=== PATIENT | female | born 1965 | race Caucasian/White ===

== ENCOUNTER 2017-09-22 10:35 | Inpatient (IN) ==
[2017-09-22] MEDS ORDERED: Isovue-370 500 ML INFUS..BTL IV ONE (10:44)
--- NOTE | 2017-09-22 10:51 | Emergency Department Note ---
Disposition Clinical Impression: Cellulitis of right upper extremity Disposition: Still a Patient Condition: Fair Referrals: Betito Staley MD [Primary Care Provider] - Forms: ED Satisfaction Letter Time of Disposition: 11:14 Extremity Problem HPI - General Chief complaint: ED Extremity Problem,Nontraumatic Stated complaint: R elbow recheck Time Seen by Provider: 09/22/17 10:41 Source: patient Mode of arrival: ambulatory Limitations: no limitations Nursing Notes Reviewed: Yes Vital Signs Reviewed: Yes - History of Present Illness HPI Narrative: Nontoxic-appearing 51-year-old female since for evaluation of a right elbow abscess/cellulitis. She was seen at this facility on 09/17 and given a prescription for clindamycin. She has since followed up with her primary care provider who extended the prescription for clindamycin. She states that yesterday evening, the wound spontaneously opened and has been draining a purulent discharge. She states the area is extremely more tender than it was on its initial presentation. She denies any associated fever or chills. She denies any nausea, vomiting, or other signs of a systemic infection. Pt Subjective Complaint: joint swelling, joint paint Onset (ago): day(s) Consistency: constant Injury Location: right, elbow Pain Scale: 6 Quality: aching Radiation: none Improves with: nothing Worsens with: range of motion, palpation Associated symptoms: Reports: swelling, redness. Denies: fever - Related Data Home Medications Medication Instructions Recorded Confirmed Clopidogrel [Plavix] 75 mg PO DAILY 11/15/14 10/24/15 Dicyclomine 20 mg PO TID 11/15/14 10/24/15 Estradiol 2 mg PO DAILY 11/15/14 10/24/15 Insulin LISPRO [Humalog] 0 unit SQ PRN PRN 11/15/14 10/24/15 Levothyroxine [Synthroid] 100 mcg PO QAM 11/15/14 10/24/15 Meloxicam [Mobic] 15 mg PO DAILY 11/15/14 10/24/15 Simvastatin [Zocor] 40 mg PO HS 11/15/14 10/24/15 Topiramate [Topamax] 25 mg PO BID 11/15/14 10/24/15 Zolpidem [Ambien] 10 mg PO HS 11/15/14 10/24/15 Amlodipine Besylate 2.5 mg PO DAILY 10/24/15 10/24/15 Cetirizine HCl [Zyrtec] 10 mg PO DAILY 10/24/15 10/24/15 Hydromorphone HCl [Dilaudid] 2 mg PO DAILY 10/24/15 10/24/15 L. Acidophilus/Pectin, [place] 1 cap PO BID 10/24/15 10/24/15 [Acidophilus Probiotic Capsule] SUMAtriptan Succinate [Imitrex] 100 mg PO PRN PRN 10/24/15 10/24/15 Previous Rx's Medication Instructions Recorded Hydrocodone/Acetaminophen [[place] 1 - 2 tab PO Q4-6H PRN #15 tab 01/01/15 5-325 Tablet] Ondansetron HCl [Zofran] 4 mg PO Q6HR PRN #12 tablet 01/01/15 Polyethylene Glycol 3350 [MiraLAX] 17 gm PO DAILY #10 powd.pack 01/24/16 Cephalexin [Keflex] 500 mg PO QID #28 capsule 09/13/16 GuaiFENesin/Codeine [ROBITUSSIN 5 ml PO Q4-6H PRN #120 ml 03/29/17 w/CODEINE] Ondansetron [Zofran] 8 mg PO Q8HR #15 tablet 03/29/17 Oseltamivir Phosphate 75 mg PO BID #10 capsule 03/29/17 Cephalexin [Keflex] 500 mg PO Q6H #28 capsule 07/06/17 Doxycycline 100 mg PO BID #20 capsule 07/06/17 Clindamycin HCl 450 mg PO TID 7 Days capsule 09/17/17 Allergies Allergy/AdvReac Type Severity Reaction Status Date / Time acetaminophen [From Percocet] Allergy Itching Verified 11/11/14 01:47 gabapentin [From Neurontin] Allergy Rash Verified 11/15/14 11:30 morphine Allergy Hives Verified 11/11/14 01:47 Oxycodone [From Percocet] Allergy Itching Verified 11/11/14 01:47 Penicillins Allergy Abdominal Verified 11/11/14 01:47 Pain Sulfa (Sulfonamide Allergy See Verified 11/11/14 01:47 Antibiotics) Comments All systems ED: reviewed and negative except as stated. Constitutional: Denies: fever, chills, weakness, weight change Eyes: Denies: eye pain, eye discharge, vision change ENT ED: Denies: ear pain, throat pain, dental pain, hearing loss, epistaxis, congestion, dysphagia Cardiovascular: Denies: chest pain, palpitations, dyspnea on exertion, edema, syncope Respiratory: Denies: cough, dyspnea, wheezes, hemoptysis, stridor Gastrointestinal: Denies: abdominal pain, nausea, vomiting, diarrhea, constipation, hematemesis, melena, hematochezia Genitourinary: Denies: dysuria, frequency, hematuria, discharge Musculoskeletal: Reports: as per HPI, joint swelling, arthralgia. Denies: back pain, neck pain, myalgia Integumentary: Denies: rash, abrasion, lesions Neurological: Denies: headache, weakness, numbness, paresthesias, confusion, abnormal gait, vertigo Psychiatric: Denies: anxiety, depression, suicidal thoughts, homicidal thoughts , auditory hallucinations, visual hallucinations Endocrine: Denies: fatigue Hematological/Lymphatic: Denies: easy bleeding, easy bruising Allergic/Immunologic: Denies: facial swelling, urticaria Past Medical History - Past Medical History Attestation: Yes The following information was validated with the patient. Source: patient, nursing notes reviewed Medical history: Reports: DVT, diabetes, hyperlipidemia, hypertension, thyroid disease Surgical history: Reports: cholecystectomy, hysterectomy, other, LE stent (s) Psychiatric history: Reports: no psych history - Social History Smoking Status: Former smoker Smokeless Tobacco Status: No Alcohol use: Reports: none Drug use: Reports: none Physical Exam - General Limitations: no limitations General appearance: alert, in no apparent distress - Head Head exam: atraumatic, normocephalic, normal inspection - Eye Eye exam: Present: normal appearance, PERRL, EOMI. Absent: nystagmus - ENT ENT exam: mucous membranes moist - Neck Neck exam: Present: normal inspection, full ROM, trachea midline - Chest Chest inspection: Present: normal inspection, symmetric chest wall rise - Expanded Upper Extremity Exam Elbow exam: Present: full ROM, tenderness, swelling, erythema, other (Moderate soft tissue swelling noted over the area of the right olecranon process. The area is erythematous. There is an area of induration with palpable fluctuance that is draining a purulent discharge.) Forearm/Wrist exam: Present: normal inspection, full ROM Hand exam: Present: normal inspection, full ROM Neuromotor exam: Normal: wrist extension, thumb opposition, fingers 2-5 abduction Neurosensory exam: Normal: radial nerve, ulnar nerve, 2-point discrimination Hand tendon exam: Normal: flexor digitorum profundus (location), extensor tendon (location) Vascular exam: Normal: capillary refill, radial pulse, ulnar pulse - Neurological Exam Neurological exam: Present: alert, oriented X3 - Psychiatric Psychiatric exam: Present: normal affect, normal mood - Skin Skin exam: Present: warm, dry, intact Course Vital Signs Temperature 98.1 F 09/22/17 10:37 Pulse Rate 89 09/22/17 10:37 Respiratory Rate 18 09/22/17 10:37 Blood Pressure 114/78 09/22/17 10:37 O2 Sat by Pulse Oximetry 100 09/22/17 10:37 Temperature 98.1 F 09/22/17 11:02 Pulse Rate 89 09/22/17 11:02 Respiratory Rate 18 09/22/17 11:02 Blood Pressure 114/78 09/22/17 11:02 O2 Sat by Pulse Oximetry 100 09/22/17 11:02 Oxygen Delivery Oxygen Delivery Room Air Extremity Problem, Nontraumati - Medical Records Medical records reviewed: Yes I reviewed the patient's medical records. Billy - Billy Situation: Demographics, MOA Background: Presenting Complaint, Relevant PMH, Meds, & Allergies Assessment: Vital Signs, Course and respsone to treatment, Exam Concerns, Patient/Family Expectation, Pertinant Lab Results, Outstanding Labs Recommendation: Barrier(s) to disposition, Recommendation based on pending studies, treatments, or consults Billy Report Given to: Dr. Dav Cervantes Repor Time: 11:14
[2017-09-22 11:15] LABS: Basophils % 0.2 %; Eosinophils # 0.4 K/mcL (0.0-0.6); Eosinophils % 4.8 %; Hematocrit 42.7 % (35.3-44.9); Hemoglobin 14.4 g/dL (11.5-15.4); Immature Granulocytes % 0.2 % (0-4); Lymphocytes # 1.8 K/mcL (0.6-4.6); Lymphocytes % 22.1 %; Mean Corpuscular HGB Conc 33.7 g/dL (31.6-35.5); Mean Corpuscular Hemoglobin 31.6 pg (28.0-33.3); Mean Corpuscular Volume 93.8 fL (83.0-100.0); Mean Platelet Volume 9.4 fL (9.4-12.4); Monocytes # 0.4 K/mcL (0.0-1.3); Monocytes % 5.4 %; Neutrophils # 5.5 K/mcL (1.6-8.9); Platelet Count 262 K/mcL (140-400); Red Blood Count 4.55 M/mcL (3.82-4.97); Red Cell Distribution Width 13.3 % (11.5-14.5); Segmented Neutrophils % 67.3 %
[2017-09-22 11:25] LABS: BUN/Creatinine Ratio 20 (6-26); Blood Urea Nitrogen 17 mg/dL (6-20); Calcium 8.7 mg/dL (8.6-10.3); Carbon Dioxide 25 mEq/L (23-29); Chloride 106 mEq/L (98-107); Glucose 198 mg/dL (70-105); Osmolality,Calculated 289 (280-300); Potassium 4.4 mEq/L (3.5-5.1); Sodium 136 mEq/L (136-145); eGFR For African Americans > 60 (> 60); eGFR For Non-African Americans > 60 (> 60)
[2017-09-22 12:37] LABS: C-Reactive Protein 7 mg/L (Less than 10)
--- NOTE | 2017-09-22 14:51 | Emergency Department Note ---
Disposition Clinical Impression: Cellulitis of right upper extremity Cellulitis Qualifiers: Site of cellulitis: extremity Site of cellulitis of extremity: upper extremity Laterality: right Qualified Code(s): L03.113 - Cellulitis of right upper limb Disposition: Admitted As Inpatient Condition: Fair Referrals: Betito Staley MD [Primary Care Provider] - Forms: ED Satisfaction Letter Time of Disposition: 15:02 General Adult HPI - General Chief complaint: ED Extremity Problem,Nontraumatic Stated complaint: R elbow recheck Time Seen by Provider: 09/22/17 10:41 Source: patient Mode of arrival: ambulatory Limitations: no limitations - History of Present Illness Pain Scale: 6 - Related Data Home Medications Medication Instructions Recorded Confirmed Clopidogrel [Plavix] 75 mg PO DAILY 11/15/14 10/24/15 Dicyclomine 20 mg PO TID 11/15/14 10/24/15 Estradiol 2 mg PO DAILY 11/15/14 10/24/15 Insulin LISPRO [Humalog] 0 unit SQ PRN PRN 11/15/14 10/24/15 Levothyroxine [Synthroid] 100 mcg PO QAM 11/15/14 10/24/15 Meloxicam [Mobic] 15 mg PO DAILY 11/15/14 10/24/15 Simvastatin [Zocor] 40 mg PO HS 11/15/14 10/24/15 Topiramate [Topamax] 25 mg PO BID 11/15/14 10/24/15 Zolpidem [Ambien] 10 mg PO HS 11/15/14 10/24/15 Amlodipine Besylate 2.5 mg PO DAILY 10/24/15 10/24/15 Cetirizine HCl [Zyrtec] 10 mg PO DAILY 10/24/15 10/24/15 Hydromorphone HCl [Dilaudid] 2 mg PO DAILY 10/24/15 10/24/15 L. Acidophilus/Pectin, [place] 1 cap PO BID 10/24/15 10/24/15 [Acidophilus Probiotic Capsule] SUMAtriptan Succinate [Imitrex] 100 mg PO PRN PRN 10/24/15 10/24/15 Previous Rx's Medication Instructions Recorded Hydrocodone/Acetaminophen [[place] 1 - 2 tab PO Q4-6H PRN #15 tab 01/01/15 5-325 Tablet] Ondansetron HCl [Zofran] 4 mg PO Q6HR PRN #12 tablet 01/01/15 Polyethylene Glycol 3350 [MiraLAX] 17 gm PO DAILY #10 powd.pack 01/24/16 Cephalexin [Keflex] 500 mg PO QID #28 capsule 09/13/16 GuaiFENesin/Codeine [ROBITUSSIN 5 ml PO Q4-6H PRN #120 ml 03/29/17 w/CODEINE] Ondansetron [Zofran] 8 mg PO Q8HR #15 tablet 03/29/17 Oseltamivir Phosphate 75 mg PO BID #10 capsule 03/29/17 Cephalexin [Keflex] 500 mg PO Q6H #28 capsule 07/06/17 Doxycycline 100 mg PO BID #20 capsule 07/06/17 Clindamycin HCl 450 mg PO TID 7 Days capsule 09/17/17 Allergies Allergy/AdvReac Type Severity Reaction Status Date / Time acetaminophen [From Percocet] Allergy Itching Verified 11/11/14 01:47 gabapentin [From Neurontin] Allergy Rash Verified 11/15/14 11:30 morphine Allergy Hives Verified 11/11/14 01:47 Oxycodone [From Percocet] Allergy Itching Verified 11/11/14 01:47 Penicillins Allergy Abdominal Verified 11/11/14 01:47 Pain Sulfa (Sulfonamide Allergy See Verified 11/11/14 01:47 Antibiotics) Comments Constitutional: Denies: fever, chills, weakness, weight change Eyes: Denies: eye pain, eye discharge, vision change ENT ED: Denies: ear pain, throat pain, dental pain, hearing loss, epistaxis, congestion, dysphagia Cardiovascular: Denies: chest pain, palpitations, dyspnea on exertion, edema, syncope Respiratory: Denies: cough, dyspnea, wheezes, hemoptysis, stridor Gastrointestinal: Denies: abdominal pain, nausea, vomiting, diarrhea, constipation, hematemesis, melena, hematochezia Genitourinary: Denies: dysuria, frequency, hematuria, discharge Musculoskeletal: Reports: as per HPI, joint swelling, arthralgia. Denies: back pain, neck pain, myalgia Integumentary: Denies: rash, abrasion, lesions Neurological: Denies: headache, weakness, numbness, paresthesias, confusion, abnormal gait, vertigo Psychiatric: Denies: anxiety, depression, suicidal thoughts, homicidal thoughts , auditory hallucinations, visual hallucinations Endocrine: Denies: fatigue Hematological/Lymphatic: Denies: easy bleeding, easy bruising Allergic/Immunologic: Denies: facial swelling, urticaria Past Medical History - Past Medical History Medical history: Reports: DVT, diabetes, hyperlipidemia, hypertension, thyroid disease Surgical history: Reports: cholecystectomy, hysterectomy, other, LE stent (s) Psychiatric history: Reports: no psych history - Social History Smoking Status: Former smoker Smokeless Tobacco Status: No Alcohol use: Reports: none Drug use: Reports: none Physical Exam - General Limitations: no limitations General appearance: alert, in no apparent distress Course - Reevaluation(s) Reevaluation #1: 51-year-old with infected olecranon bursa. CT did show abscess were going to open that up culturette place her on vancomycin and admit Time: 15:01 - Consultations Consultation #1: Discussed with Dr. Alejandre, admit Time: 15:01 Vital Signs Temperature 98.1 F 09/22/17 10:37 Pulse Rate 89 09/22/17 10:37 Respiratory Rate 18 09/22/17 10:37 Blood Pressure 114/78 09/22/17 10:37 O2 Sat by Pulse Oximetry 100 09/22/17 10:37 Temperature 98.1 F 09/22/17 11:02 Pulse Rate 89 09/22/17 11:02 Respiratory Rate 18 09/22/17 11:02 Blood Pressure 114/78 09/22/17 11:02 O2 Sat by Pulse Oximetry 100 09/22/17 11:02 Oxygen Delivery Oxygen Delivery Room Air Medical Decision Making - Lab Data Lab results reviewed: Yes I reviewed the patient's lab results. Result diagrams: 09/22/17 10:53 09/22/17 10:53 Lab Results 09/22/17 09/22/17 09/22/17 Range/Units 10:53 10:53 10:53 WBC 8.2 (4.3-11.1) K/mcL RBC 4.55 (3.82-4.97) M/mcL Hgb 14.4 (11.5-15.4) g/dL Hct 42.7 (35.3-44.9) % MCV 93.8 (83.0-100.0) fL MCH 31.6 (28.0-33.3) pg MCHC 33.7 (31.6-35.5) g/dL RDW 13.3 (11.5-14.5) % Plt Count 262 (140-400) K/mcL MPV 9.4 (9.4-12.4) fL Immature Gran % 0.2 (0-4) % Seg Neutrophils % 67.3 % Lymphocytes % 22.1 % Monocytes % 5.4 % Eosinophils % 4.8 % Basophils % 0.2 % Neutrophils # 5.5 (1.6-8.9) K/mcL Lymphocytes # 1.8 (0.6-4.6) K/mcL Monocytes # 0.4 (0.0-1.3) K/mcL Eosinophils # 0.4 (0.0-0.6) K/mcL Basophils # 0.0 (0.0-0.2) K/mcL ESR 21 H (0-15) mm/hr Sodium 136 (136-145) mEq/L Potassium 4.4 (3.5-5.1) mEq/L Chloride 106 (98-107) mEq/L Carbon Dioxide 25 (23-29) mEq/L BUN 17 (6-20) mg/dL Creatinine 0.83 (0.60-1.20) mg/dL Est GFR ( Amer) > 60 (> 60) Est GFR (Non-Af Amer) > 60 (> 60) BUN/Creatinine Ratio 20 (6-26) Glucose 198 H (70-105) mg/dL Calculated Osmolality 289 (280-300) Calcium 8.7 (8.6-10.3) mg/dL C-Reactive Protein 7 (Less than 10) mg/L - Radiology Data Radiology results reviewed: Yes I reviewed the patient's radiology results. Elbow CT 09/22/17 10:44 IMPRESSION: 1. Severe edema/fluid along the dorsal aspect of the elbow in the region of the olecranon process with induration and thickening of the soft tissue/skin surface of the posterior elbow. 2 adjacent fluid collections overlying the region the olecranon process with the largest measuring 2.8 x 0.8 x 2.7 cm and smaller more superficial collection measuring 2.0 x 0.7 x 1.6 cm. Differential considerations include severe cellulitis and associated multifocal abscess formation overlying the olecranon in the appropriate clinical setting. 2. No acute fracture or gross dislocation. No aggressive osseous destruction or periosteal reaction identified. D/ / Rojelio Campbell MD / Rojelio Campbell MD Interpreting Provider: Rojelio Campbell MD Attestation Statement - Attestation Attestation: For this encounter, I have reviewed the [employer] or PA documentation, treatment plan, and medical decision making; and I have had face to face time with this patient. 51-year-old who had an infection in her elbow who was seen here started on antibiotics seen as an outpatient symptoms seem to be getting worse. Physical exam right elbow shows erythema. Patient has expressed purulent material from the area. CT scan obtained shows severe cellulitis with abscess collection. See PA note for abscess drainage cultures obtained. Patient was given IV vancomycin will be admitted. Patient failed outpatient treatment..
[2017-09-22] MEDS ORDERED: Lidocaine 1% 20 ML MDV INFILT ONE (14:55)
--- NOTE | 2017-09-22 18:49 | Internal Med History&Physical ---
Date of Encounter: 09/22/17 Time of Encounter: 17:00 Internal Medicine - H&P: HPI Chief complaint: Right elbow pain Admitted From: Home Plans for Post Hospital Care: Home History of present illness: Patient is a 51-year-old female with past medical history significant for hypertension, diabetes, hyperlipidemia and hypothyroid who presents to the ER on 09/22/17 due to right elbow pain/redness. She reports of cutting her right elbow on consult of her car approximately 2 weeks ago and noticed that her elbow became red approximate one week ago. The redness and swelling progressively got worse and patient decided to come to the ER for evaluation. In the ER, CT of the elbow was ordered which showed a severe edema/fluid along the dorsal aspect of the elbow in the region of the olecranon process with 2 adjacent fluid collections overlying the region of the left process. No aggressive osseous destruction or periosteal reaction identified. Incision and drainage was performed in the ER and cultures taken and patient was started on vancomycin. Patient will be admitted to medical surgical floor for management of right elbow cellulitis. Past Med Surg Social Fam HX - Past Medical History Medical history: DVT, diabetes, hyperlipidemia, hypertension, thyroid disease Psychiatric history: no psych history - Past Surgical History Surgical History: cholecystectomy, hysterectomy, other, LE stent (s) Additional surgical history: shoulder surgery, subclavian bypass, right illiac stent, carotid bypass - Social History Smoking Status: Former smoker Smokeless Tobacco Status: No Alcohol use: none Drug use: none - Additional Family History Additional family history: Noncontributory Internal Medicine - H&P: Meds Amlodipine Besylate [Amlodipine Besylate] 2.5 mg PO DAILY 09/22/17 [History] Atorvastatin Calcium [Lipitor] 80 mg PO HS 09/22/17 [History] Clopidogrel [Plavix] 75 mg PO DAILY 09/22/17 [History] Cyclobenzaprine HCl 10 mg PO TID PRN 09/22/17 [History] Dicyclomine [Bentyl] 10 mg PO QID 09/22/17 [History] Estradiol [Estradiol] 2 mg PO HS 09/22/17 [History] Famotidine [Pepcid] 40 mg PO DAILY 09/22/17 [History] Levothyroxine [Synthroid] 100 mcg PO 0630 09/22/17 [History] Meloxicam [Meloxicam] 15 mg PO DAILY 09/22/17 [History] Subcutaneous Insulin Pump [T:Slim] 1 each MC AD 09/22/17 [History] Topiramate [Topamax] 25 mg PO BID 09/22/17 [History] 3 Allergy/AdvReac Type Severity Reaction Status Date / Time Sulfa (Sulfonamide Allergy See Verified 09/22/17 16:27 Antibiotics) Comments gabapentin [From Neurontin] AdvReac See Verified 09/22/17 16:27 Comments morphine AdvReac Nausea Verified 09/22/17 16:27 Oxycodone [From Percocet] AdvReac Itching Verified 09/22/17 16:27 Penicillins AdvReac Abdominal Verified 09/22/17 16:27 Pain All Systems PM: A 10-system review of systems was performed and is negative for pertinent findings except as documented above in the HPI. - Constitutional Vitals: Temp Pulse Resp BP Pulse Ox 97.5 F L 70 16 109/75 100 09/22/17 16:46 09/22/17 16:46 09/22/17 16:46 09/22/17 16:46 09/22/17 17:00 General appearance: Present: A&O X 3, no acute distress - Eye Eye exam: Present: normal appearance - ENT ENT exam: Present: mucous membranes moist - Respiratory Respiratory exam: Present: CTAB. Absent: accessory muscle use, rales, rhonchi, wheezes - Cardiovascular Cardiovascular exam: Present: RRR, +S1, +S2. Absent: diastolic murmur, gallop, rubs, systolic murmur - GI/Abdominal GI/Abdominal exam: Present: normal bowel sounds, soft, no peritoneal signs. Absent: distended, tenderness - Extremities Exam Extremities exam: Absent: pedal edema - Neurological Exam Neurological exam: Present: oriented X3. Absent: no focal deficits - Psychiatric Psychiatric exam: Present: normal mood - Skin Skin exam: Present: normal color Internal Med - H&P Results - Labs CBC & Chem 7: 09/22/17 10:53 09/22/17 10:53 - Assessment and plan (1) Cellulitis Current Visit: Yes Status: Acute Assessment and plan: In the ER, CT of the elbow was ordered which showed a severe edema/fluid along the dorsal aspect of the elbow in the region of the olecranon process with 2 adjacent fluid collections overlying the region of the left process. Will continue IV vancomycin; cultures cultures pending Qualifiers: Site of cellulitis: extremity Site of cellulitis of extremity: upper extremity Laterality: right Qualified Code(s): L03.113 - Cellulitis of right upper limb (2) Hyperlipidemia Current Visit: No Status: Acute Assessment and plan: Continue home medication Qualifiers: Hyperlipidemia type: unspecified Qualified Code(s): E78.5 - Hyperlipidemia , unspecified (3) Hypertension Current Visit: No Status: Acute Assessment and plan: Controlled; continue home medication Qualifiers: Hypertension type: essential hypertension Qualified Code(s): I10 - Essential (primary) hypertension (4) Hypothyroidism Current Visit: No Status: Acute Assessment and plan: Continue home dose of Synthroid Qualifiers: Hypothyroidism type: acquired Qualified Code(s): E03.9 - Hypothyroidism, unspecified (5) DVT prophylaxis Current Visit: Yes Status: Acute Assessment and plan: SCDs - Time Spent With Patient Total time spent is greater than 50% in coordination of care (as documented) at patient's floor/unit and/or counseling patient:
[2017-09-22] MEDS ORDERED: Naloxone 0.4 MG/ML INJ IVP PRN (19:02)
[2017-09-22] MEDS ORDERED: (Subcutaneous Insulin Pump [T:Slim] 1 EACH) MC SCH (19:15)
[2017-09-22] MEDS: Topiramate 25 MG TABLET PO SCH (22:10)
[2017-09-23 05:58] LABS: Basophils % 0.4 %; Eosinophils # 0.4 K/mcL (0.0-0.6); Eosinophils % 4.8 %; Hematocrit 40.3 % (35.3-44.9); Hemoglobin 13.8 g/dL (11.5-15.4); Immature Granulocytes % 0.2 % (0-4); Lymphocytes # 2.2 K/mcL (0.6-4.6); Lymphocytes % 26.2 %; Mean Corpuscular HGB Conc 34.2 g/dL (31.6-35.5); Mean Corpuscular Hemoglobin 32.1 pg (28.0-33.3); Mean Corpuscular Volume 93.7 fL (83.0-100.0); Mean Platelet Volume 9.7 fL (9.4-12.4); Monocytes # 0.5 K/mcL (0.0-1.3); Monocytes % 6.5 %; Neutrophils # 5.1 K/mcL (1.6-8.9); Platelet Count 228 K/mcL (140-400); Red Cell Distribution Width 13.4 % (11.5-14.5); Segmented Neutrophils % 61.9 %
[2017-09-23 06:17] LABS: BUN/Creatinine Ratio 15 (6-26); Blood Urea Nitrogen 12 mg/dL (6-20); Calcium 8.2 mg/dL (8.6-10.3); Carbon Dioxide 21 mEq/L (23-29); Chloride 105 mEq/L (98-107); Glucose 437 mg/dL (70-105); Osmolality,Calculated 293 (280-300); Potassium 4.6 mEq/L (3.5-5.1); Sodium 132 mEq/L (136-145); eGFR For African Americans > 60 (> 60); eGFR For Non-African Americans > 60 (> 60)
[2017-09-23] MEDS ORDERED: amLODIPine 5 MG TABLET PO SCH (09:00)
[2017-09-23] MEDS ORDERED: Famotidine 20 MG TABLET PO SCH (09:00)
[2017-09-23] MEDS: Topiramate 25 MG TABLET PO SCH (09:30)
[2017-09-23 11:28] VITALS: BP 103/65
--- NOTE | 2017-09-23 14:59 | Discharge Summary ---
Orders not resulted at time of discharge: Pending orders 09/24/17 14:00 Vancomycin,Trough Timed pending wound culture Date of Encounter: 09/23/17 Time of Encounter: 14:55 - Discharge Diagnosis (1) Cellulitis of right upper extremity Priority: Primary Status: Resolved Assessment and Plan: improved Comments: discharge on doxycline (2) DM type 1 (diabetes mellitus, type 1) Priority: Secondary Status: Chronic Assessment and Plan: in insulin pump Comments: patient is on Insulin Pump Qualifiers: Diabetes mellitus complication status: with unspecified complications Qualified Code(s): E10.8 - Type 1 diabetes mellitus with unspecified complications (3) Hyperlipidemia Priority: Secondary Status: Chronic Qualifiers: Hyperlipidemia type: unspecified Qualified Code(s): E78.5 - Hyperlipidemia , unspecified (4) CAD (coronary artery disease) of artery bypass graft Priority: Secondary Status: Chronic Qualifiers: Associated angina: without angina Qualified Code(s): I25.810 - Atherosclerosis of coronary artery bypass graft(s) without angina pectoris (5) Hypothyroidism Priority: Secondary Status: Chronic Qualifiers: Hypothyroidism type: acquired Qualified Code(s): E03.9 - Hypothyroidism, unspecified Hospital course: Ms. Reina is a 51 year old female who has hx of CAD, DVT, diabetes, hyperlipidemia, hypertension, thyroid disease presented to ER for right elbow swelling. In the ER, CT of the elbow was ordered which showed a severe edema/fluid along the dorsal aspect of the elbow in the region of the olecranon process with 2 adjacent fluid collections overlying the region of the left process. she has I & D and fluids sent for gram stain ( which was negative for bacteria), pending culture. She was placed IV vancomycin. ELbow redness and swelling resolved. patient is discharge on oral doxycline Discharge discussed with: patient Time spent discussing smoking cessation with patient: 3 to 10 minutes - Time Spent with Patient Total time spent providing and/or coordinating discharge services: Less than 30 minutes - Discharge Medications Prescriptions: Doxycycline 100 mg PO BID #20 capsule Home Medications: Amlodipine Besylate 2.5 mg PO DAILY 09/22/17 [History] Atorvastatin Calcium [Lipitor] 80 mg PO HS 09/22/17 [History] Clopidogrel [Plavix] 75 mg PO DAILY 09/22/17 [History] Cyclobenzaprine HCl 10 mg PO TID PRN 09/22/17 [History] Dicyclomine [Bentyl] 10 mg PO QID 09/22/17 [History] Estradiol 2 mg PO HS 09/22/17 [History] Famotidine [Pepcid] 40 mg PO DAILY 09/22/17 [History] Levothyroxine [Synthroid] 100 mcg PO 0630 09/22/17 [History] Meloxicam 15 mg PO DAILY 09/22/17 [History] Subcutaneous Insulin Pump [T:Slim] 1 each MC AD 09/22/17 [History] Topiramate [Topamax] 25 mg PO BID 09/22/17 [History] Doxycycline 100 mg PO BID #20 capsule 09/23/17 [Rx] Allergies/Adverse Reactions: 3 Allergy/AdvReac Type Severity Reaction Status Date / Time Sulfa (Sulfonamide Allergy See Verified 09/22/17 16:27 Antibiotics) Comments gabapentin [From Neurontin] AdvReac See Verified 09/22/17 16:27 Comments morphine AdvReac Nausea Verified 09/22/17 16:27 Oxycodone [From Percocet] AdvReac Itching Verified 09/22/17 16:27 Penicillins AdvReac Abdominal Verified 09/22/17 16:27 Pain Date of admission: 09/23/17 08:14 Primary care physician: Betito Staley MD - Constitutional Vitals: Temp Pulse Resp BP Pulse Ox 97.8 F 64 16 103/65 96 09/23/17 11:15 09/23/17 11:15 09/23/17 11:15 09/23/17 11:15 09/23/17 11:15 General appearance: Present: A&O X 3, no acute distress Exam: CONSTITUTIONAL: patient appears as an age appropriate female in no acute distress. EYES Clear sclerae, bilateral pupils are equal, reactive to light. EMOI. RESPIRATORY: No accessory muscle use, bilateral clear to auscultation, no wheezing, no crackles/rales. CARDIOVASCULAR: Regular heart rate, normal S1 and S2, no murmurs GASTROINTESTINAL: bowel sounds present, soft, no tenderness. MUSCULOSKELETAL: Joints in normal range of motion, no clubbing, no edema, no cyanosis. Bilateral peripheral pulses 2+. NEUROLOGIC: CN II to XII are grossly intact, no focal neurological deficit. - Patient Status Disposition: Home, Self-Care Functional capacity at discharge: independent ambulation - Discharge Instructions Follow Up With: Betito Staley MD [Primary Care Provider] - - Diet and Activity Diet: diabetic diet
== END 2017-09-23 16:21 | disposition home or self-care (01) | DRG 603 ==
LOC: EMEROO 10:35 → 3ANU 10:35 → SUATTDRO 15:14 → 3ANU 16:34
PROVIDERS: ADMIT Hospitalist; ATTEND Hospitalist

== ENCOUNTER 2017-11-04 08:18 | Observation (INO) ==
[2017-11-04 08:51] LABS: Bilirubin,Urine Negative (Negative); Blood,Urine Negative (Negative); Clarity,Urine Clear (Clear); Color,Urine Yellow (Yellow); Glucose,Urine (UA) >=1000 mg/dL (Normal); Ketones,Urine 40 mg/dL (Negative); Leukocyte Esterase,Urine Negative (Negative); Nitrite,Urine Negative (Negative); PH,Urine 5.5 pH Units (5.0-8.0); Protein,Urine Negative (Neg-Trace); Specific Gravity,Urine 1.028 (1.010-1.025); Urobilinogen,Urine Normal (Normal)
[2017-11-04] MEDS ORDERED: 0.9 % Sodium Chloride 1,000 ML IVC ONE ×2 (08:51→09:19)
[2017-11-04 09:09] LABS: Basophils % 0.2 %; Eosinophils # 0.2 K/mcL (0.0-0.6); Eosinophils % 1.4 %; Hematocrit 39.9 % (35.3-44.9); Hemoglobin 13.6 g/dL (11.5-15.4); Immature Granulocytes % 0.4 % (0-4); Lymphocytes # 1.5 K/mcL (0.6-4.6); Mean Corpuscular HGB Conc 34.1 g/dL (31.6-35.5); Mean Corpuscular Hemoglobin 32.1 pg (28.0-33.3); Mean Corpuscular Volume 94.1 fL (83.0-100.0); Mean Platelet Volume 9.9 fL (9.4-12.4); Monocytes # 0.5 K/mcL (0.0-1.3); Monocytes % 3.6 %; Platelet Count 255 K/mcL (140-400); Red Blood Count 4.24 M/mcL (3.82-4.97); Red Cell Distribution Width 12.7 % (11.5-14.5); Segmented Neutrophils % 83.4 %
--- NOTE | 2017-11-04 09:18 | Emergency Department Note ---
Disposition Clinical Impression: Hyperglycemia Disposition: Admitted As Inpatient Condition: Fair General Adult HPI - General Chief complaint: ED Nausea/Vomiting/Diarrhea Stated complaint: High BG Time Seen by Provider: 11/04/17 08:33 Source: patient Limitations: no limitations Nursing Notes Reviewed: Yes Vital Signs Reviewed: Yes - History of Present Illness HPI Narrative: 51 year old female with history of type 1 diabetes and CAD presents with elevated blood sugar. pt is on insulin pump. She noticed her blood sugar level was above 600 this morning. She started feeling chest pain and abdominal pain. Pt stated the chest pain was in middle chest and pressure like pain. [place] with nausea. no vomiting. No shortness of breath. No chills and fever. Onset (ago): hour(s) (3) Location: chest, abdomen Radiation: non-radiation Pain Scale: 7 Associated symptoms: Reports: chest pain, nausea/vomiting - Related Data Home Medications Medication Instructions Recorded Confirmed Amlodipine Besylate 2.5 mg PO DAILY 09/22/17 11/04/17 Atorvastatin Calcium [Lipitor] 80 mg PO HS 09/22/17 11/04/17 Clopidogrel [Plavix] 75 mg PO DAILY 09/22/17 11/04/17 Cyclobenzaprine HCl 10 mg PO TID PRN 09/22/17 11/04/17 Dicyclomine [Bentyl] 10 mg PO TID 09/22/17 11/04/17 Estradiol 2 mg PO HS 09/22/17 11/04/17 Famotidine [Pepcid] 40 mg PO DAILY 09/22/17 11/04/17 Levothyroxine [Synthroid] 100 mcg PO 0630 09/22/17 11/04/17 Meloxicam 15 mg PO DAILY 09/22/17 11/04/17 Subcutaneous Insulin Pump [T:Slim] 1 each MC AD 09/22/17 11/04/17 Topiramate [Topamax] 25 mg PO BID 09/22/17 11/04/17 Allergies Allergy/AdvReac Type Severity Reaction Status Date / Time Sulfa (Sulfonamide Allergy See Verified 11/04/17 10:32 Antibiotics) Comments acetaminophen [From Lortab] AdvReac Nausea Verified 11/04/17 10:32 gabapentin [From Neurontin] AdvReac See Verified 11/04/17 10:32 Comments hydrocodone [From Lortab] AdvReac Nausea Verified 11/04/17 10:32 metoprolol [From Lopressor] AdvReac Hypotension Verified 10/16/17 14:36 morphine AdvReac Nausea Verified 11/04/17 10:32 Oxycodone [From Percocet] AdvReac Itching Verified 11/04/17 10:32 Oxymorphone [From Opana] AdvReac Nausea Verified 11/04/17 10:32 Penicillins AdvReac Abdominal Verified 11/04/17 10:32 Pain Constitutional: Denies: fever, chills, weakness, weight change Eyes: Denies: eye pain, eye discharge, vision change ENT ED: Denies: ear pain, throat pain, dental pain, hearing loss, epistaxis, congestion, dysphagia Cardiovascular: Reports: chest pain. Denies: palpitations, dyspnea on exertion , edema, syncope Respiratory: Denies: cough, dyspnea, wheezes, hemoptysis, stridor Gastrointestinal: Reports: abdominal pain, nausea. Denies: vomiting, diarrhea, constipation, hematemesis, melena, hematochezia Genitourinary: Denies: dysuria, frequency, hematuria, discharge Musculoskeletal: Denies: back pain, neck pain, arthralgia, myalgia Integumentary: Denies: rash, abrasion, lesions Neurological: Denies: headache, weakness, numbness, paresthesias, confusion, abnormal gait, vertigo Psychiatric: Denies: anxiety, depression, suicidal thoughts, homicidal thoughts , auditory hallucinations, visual hallucinations Endocrine: Reports: other (elevated blood sugar). Denies: fatigue Hematological/Lymphatic: Denies: easy bleeding, easy bruising Allergic/Immunologic: Denies: facial swelling, urticaria Past Medical History - Past Medical History Medical history: Reports: DVT, diabetes, hyperlipidemia, hypertension, migraine , thyroid disease Surgical history: Reports: cholecystectomy, hysterectomy, other, LE stent (s) Psychiatric history: Reports: no psych history - Social History Smoking Status: Former smoker Smokeless Tobacco Status: No Alcohol use: Reports: none Drug use: Reports: none Physical Exam - General Limitations: no limitations General appearance: alert, in no apparent distress - Head Head exam: atraumatic, normocephalic, normal inspection - Eye Eye exam: Present: normal appearance, PERRL, EOMI - ENT ENT exam: normal exam, normal oropharynx, mucous membranes moist - Neck Neck exam: Present: normal inspection, full ROM, trachea midline - Chest Chest inspection: Present: normal inspection, symmetric chest wall rise. Absent : tenderness - Respiratory Respiratory exam: Present: normal lung sounds bilaterally. Absent: respiratory distress, wheezes - Cardiovascular Cardiovascular exam: Present: regular rate, normal rhythm, normal heart sounds - Abdominal Exam Abdominal exam: Present: soft, Non-Tender, tenderness (generalized tender). Absent: distention, guarding, rebound, rigidity - Extremities Exam Extremities exam: Present: normal inspection, full ROM. Absent: tenderness, pedal edema - Back Exam Back exam: Present: normal inspection, full ROM. Absent: tenderness - Neurological Exam Neurological exam: Present: alert, oriented X3, CN II-XII intact - Psychiatric Psychiatric exam: Present: normal affect, normal mood - Skin Skin exam: Present: warm, dry, intact, normal color Course Vital Signs Temperature 97.5 F L 11/04/17 08:25 Pulse Rate 87 11/04/17 08:25 Respiratory Rate 16 11/04/17 08:25 Blood Pressure 94/64 11/04/17 08:25 O2 Sat by Pulse Oximetry 99 11/04/17 08:25 Temperature 97.5 F L 11/04/17 08:35 Pulse Rate 81 11/04/17 10:00 Respiratory Rate 20 11/04/17 10:00 Blood Pressure 109/60 11/04/17 10:00 O2 Sat by Pulse Oximetry 99 11/04/17 10:00 Oxygen Delivery Oxygen Delivery Room Air Medical Decision Making - [facility] Narrative Medical decision making narrative: 51 year old female with history of type 1 diabetes with insulin bump presents with elevated blood sugar and chest pain, abdominal pain. Pt stated her insulin bump was new (started two weeks ago, and worked well). Pt reported nausea and started vomiting in ER. Physical exam: abdomen soft, diffused mild tender to palpation, no rebound tenderness, BP 94/64. unremarkable chest xray; normal EKG ; Labs: BG 697, Beta-Hydroxybutyrate elevated. Gap negative. Dr. Bustamante saw the patient and considering early stage of DKA, pt will be admitted to hospital for further evaluation. 2L NS and insulin 10 units given in ER. 10:20 am, Spoke with hospitalist Dr. Thibodeaux in the phone, pt is accepted. - Lab Data Lab results reviewed: Yes I reviewed the patient's lab results. Result diagrams: 11/04/17 08:40 11/04/17 08:40 Lab Results 11/04/17 11/04/17 11/04/17 Range/Units 08:31 08:40 08:40 WBC 13.2 H (4.3-11.1) K/mcL RBC 4.24 (3.82-4.97) M/mcL Hgb 13.6 (11.5-15.4) g/dL Hct 39.9 (35.3-44.9) % MCV 94.1 (83.0-100.0) fL MCH 32.1 (28.0-33.3) pg MCHC 34.1 (31.6-35.5) g/dL RDW 12.7 (11.5-14.5) % Plt Count 255 (140-400) K/mcL MPV 9.9 (9.4-12.4) fL Immature Gran % 0.4 (0-4) % Seg Neutrophils % 83.4 % Lymphocytes % 11.0 % Monocytes % 3.6 % Eosinophils % 1.4 % Basophils % 0.2 % Neutrophils # 11.0 H (1.6-8.9) K/mcL Lymphocytes # 1.5 (0.6-4.6) K/mcL Monocytes # 0.5 (0.0-1.3) K/mcL Eosinophils # 0.2 (0.0-0.6) K/mcL Basophils # 0.0 (0.0-0.2) K/mcL Sodium 131 L (136-145) mEq/L Potassium 5.5 H (3.5-5.1) mEq/L Chloride 98 (98-107) mEq/L Carbon Dioxide 20 L (23-29) mEq/L BUN 20 (6-20) mg/dL Creatinine 1.05 (0.60-1.20) mg/dL Est GFR ( Amer) > 60 (> 60) Est GFR (Non-Af Amer) 55 L (> 60) BUN/Creatinine Ratio 19 (6-26) Glucose 697 H* (70-105) mg/dL Calculated Osmolality 308 H (280-300) Lactic Acid (0.5-2.2) mmol/L Calcium 9.3 (8.6-10.3) mg/dL Total Bilirubin 1.1 H (0.3-1.0) mg/dL AST 23 (13-39) Units/L ALT 26 (7-52) Units/L Alkaline Phosphatase 88 (34-104) Units/L Troponin I < 0.03 (< 0.04) ng/mL Serum Total Protein 6.8 (6.4-8.9) g/dL Albumin 4.2 (3.5-5.7) g/dL Globulin 2.6 (2.4-3.5) g/dL Albumin/Globulin Ratio 1.6 (1.1-2.2) Lipase 8 L (11-82) Units/L Beta-Hydroxybutyric Acd (0.02-0.27) mmol/L Urine Color Yellow (Yellow) Urine Clarity Clear (Clear) Urine pH 5.5 (5.0-8.0) pH Units Ur Specific Valentine 1.028 H (1.010-1.025) Urine Protein Negative (Neg-Trace) mg/dL Urine Glucose (UA) >=1000 H (Normal) mg/dL Urine Ketones 40 H (Negative) mg/dL Urine Blood Negative (Negative) Urine Nitrite Negative (Negative) Urine Bilirubin Negative (Negative) Urine Urobilinogen Normal (Normal) mg/dL Ur Leukocyte Esterase Negative (Negative) Ur Culture Indicated? NO (NO) 11/04/17 11/04/17 Range/Units 08:48 09:23 WBC (4.3-11.1) K/mcL RBC (3.82-4.97) M/mcL Hgb (11.5-15.4) g/dL Hct (35.3-44.9) % MCV (83.0-100.0) fL MCH (28.0-33.3) pg MCHC (31.6-35.5) g/dL RDW (11.5-14.5) % Plt Count (140-400) K/mcL MPV (9.4-12.4) fL Immature Gran % (0-4) % Seg Neutrophils % % Lymphocytes % % Monocytes % % Eosinophils % % Basophils % % Neutrophils # (1.6-8.9) K/mcL Lymphocytes # (0.6-4.6) K/mcL Monocytes # (0.0-1.3) K/mcL Eosinophils # (0.0-0.6) K/mcL Basophils # (0.0-0.2) K/mcL Sodium (136-145) mEq/L Potassium (3.5-5.1) mEq/L Chloride (98-107) mEq/L Carbon Dioxide (23-29) mEq/L BUN (6-20) mg/dL Creatinine (0.60-1.20) mg/dL Est GFR ( Amer) (> 60) Est GFR (Non-Af Amer) (> 60) BUN/Creatinine Ratio (6-26) Glucose (70-105) mg/dL Calculated Osmolality (280-300) Lactic Acid 1.0 (0.5-2.2) mmol/L Calcium (8.6-10.3) mg/dL Total Bilirubin (0.3-1.0) mg/dL AST (13-39) Units/L ALT (7-52) Units/L Alkaline Phosphatase (34-104) Units/L Troponin I (< 0.04) ng/mL Serum Total Protein (6.4-8.9) g/dL Albumin (3.5-5.7) g/dL Globulin (2.4-3.5) g/dL Albumin/Globulin Ratio (1.1-2.2) Lipase (11-82) Units/L Beta-Hydroxybutyric Acd > 2.00 H (0.02-0.27) mmol/L Urine Color (Yellow) Urine Clarity (Clear) Urine pH (5.0-8.0) pH Units Ur Specific Valentine (1.010-1.025) Urine Protein (Neg-Trace) mg/dL Urine Glucose (UA) (Normal) mg/dL Urine Ketones (Negative) mg/dL Urine Blood (Negative) Urine Nitrite (Negative) Urine Bilirubin (Negative) Urine Urobilinogen (Normal) mg/dL Ur Leukocyte Esterase (Negative) Ur Culture Indicated? (NO) - Radiology Data Radiology results reviewed: Yes I reviewed the patient's radiology results.
[2017-11-04] MEDS ORDERED: Ondansetron 4 MG/2 ML VIAL IVP ONE (09:19)
[2017-11-04 09:28] LABS: Troponin I < 0.03 ng/mL (< 0.04)
[2017-11-04 09:32] LABS: Alanine Aminotransferase 26 Units/L (7-52); Albumin 4.2 g/dL (3.5-5.7); Albumin/Globulin Ratio 1.6 (1.1-2.2); Alkaline Phosphatase 88 Units/L (34-104); Aspartate Amino Transferase 23 Units/L (13-39); BUN/Creatinine Ratio 19 (6-26); Bilirubin,Total 1.1 mg/dL (0.3-1.0); Blood Urea Nitrogen 20 mg/dL (6-20); Calcium 9.3 mg/dL (8.6-10.3); Carbon Dioxide 20 mEq/L (23-29); Chloride 98 mEq/L (98-107); Globulin 2.6 g/dL (2.4-3.5); Glucose 697 mg/dL (70-105); Lipase 8 Units/L (11-82); Osmolality,Calculated 308 (280-300); Potassium 5.5 mEq/L (3.5-5.1); Sodium 131 mEq/L (136-145); Total Protein 6.8 g/dL (6.4-8.9); eGFR For Non-African Americans 55 (> 60)
[2017-11-04] MEDS ORDERED: Insulin Regular, Human 100 UNIT/ML SQ ONE (09:38)
--- NOTE | 2017-11-04 10:31 | Emergency Department Note ---
Disposition Clinical Impression: Hyperglycemia Disposition: Admitted As Inpatient Condition: Fair Referrals: Betito Staley MD [Primary Care Provider] - Time of Disposition: 10:15 General Adult HPI - General Chief complaint: ED Nausea/Vomiting/Diarrhea Stated complaint: High BG Time Seen by Provider: 11/04/17 08:33 Source: patient Limitations: no limitations Nursing Notes Reviewed: Yes Vital Signs Reviewed: Yes - History of Present Illness Location: chest, abdomen Pain Scale: 7 Associated symptoms: Reports: chest pain, nausea/vomiting - Related Data Home Medications Medication Instructions Recorded Confirmed Amlodipine Besylate 2.5 mg PO DAILY 09/22/17 10/06/17 Atorvastatin Calcium [Lipitor] 80 mg PO HS 09/22/17 10/06/17 Clopidogrel [Plavix] 75 mg PO DAILY 09/22/17 10/06/17 Cyclobenzaprine HCl 10 mg PO TID PRN 09/22/17 10/06/17 Dicyclomine [Bentyl] 10 mg PO QID 09/22/17 10/06/17 Estradiol 2 mg PO HS 09/22/17 10/06/17 Famotidine [Pepcid] 40 mg PO DAILY 09/22/17 10/06/17 Levothyroxine [Synthroid] 100 mcg PO 0630 09/22/17 10/06/17 Meloxicam 15 mg PO DAILY 09/22/17 10/06/17 Subcutaneous Insulin Pump [T:Slim] 1 each MC AD 09/22/17 10/06/17 Topiramate [Topamax] 25 mg PO BID 09/22/17 10/06/17 Levofloxacin [Levaquin] 500 mg PO 10/06/17 Previous Rx's Medication Instructions Recorded Doxycycline 100 mg PO BID #20 capsule 10/11/17 OxyCODONE/APAP 5/325 [Percocet 1 each PO Q6HR PRN 7 Days #28 10/11/17 5/325 MG] tablet Allergies Allergy/AdvReac Type Severity Reaction Status Date / Time Sulfa (Sulfonamide Allergy See Verified 10/16/17 14:36 Antibiotics) Comments acetaminophen [From Lortab] AdvReac Nausea Verified 10/16/17 14:36 gabapentin [From Neurontin] AdvReac See Verified 10/16/17 14:36 Comments hydrocodone [From Lortab] AdvReac Nausea Verified 10/16/17 14:36 metoprolol [From Lopressor] AdvReac Hypotension Verified 10/16/17 14:36 morphine AdvReac Nausea Verified 10/16/17 14:36 Oxycodone [From Percocet] AdvReac Itching Verified 10/16/17 14:36 Oxymorphone [From Opana] AdvReac Nausea Verified 10/16/17 14:36 Penicillins AdvReac Abdominal Verified 10/16/17 14:36 Pain Constitutional: Denies: fever, chills, weakness, weight change Eyes: Denies: eye pain, eye discharge, vision change ENT ED: Denies: ear pain, throat pain, dental pain, hearing loss, epistaxis, congestion, dysphagia Cardiovascular: Reports: chest pain. Denies: palpitations, dyspnea on exertion , edema, syncope Respiratory: Denies: cough, dyspnea, wheezes, hemoptysis, stridor Gastrointestinal: Reports: abdominal pain, nausea. Denies: vomiting, diarrhea, constipation, hematemesis, melena, hematochezia Genitourinary: Denies: dysuria, frequency, hematuria, discharge Musculoskeletal: Denies: back pain, neck pain, arthralgia, myalgia Integumentary: Denies: rash, abrasion, lesions Neurological: Denies: headache, weakness, numbness, paresthesias, confusion, abnormal gait, vertigo Psychiatric: Denies: anxiety, depression, suicidal thoughts, homicidal thoughts , auditory hallucinations, visual hallucinations Endocrine: Reports: other (elevated blood sugar). Denies: fatigue Hematological/Lymphatic: Denies: easy bleeding, easy bruising Allergic/Immunologic: Denies: facial swelling, urticaria Past Medical History - Past Medical History Medical history: Reports: DVT, diabetes, hyperlipidemia, hypertension, migraine , thyroid disease Surgical history: Reports: cholecystectomy, hysterectomy, other, LE stent (s) Psychiatric history: Reports: no psych history - Social History Smoking Status: Former smoker Smokeless Tobacco Status: No Alcohol use: Reports: none Drug use: Reports: none Physical Exam - General Limitations: no limitations General appearance: alert, in no apparent distress Course Vital Signs Temperature 97.5 F L 11/04/17 08:25 Pulse Rate 87 11/04/17 08:25 Respiratory Rate 16 11/04/17 08:25 Blood Pressure 94/64 11/04/17 08:25 O2 Sat by Pulse Oximetry 99 08/03/18 08:25 Temperature 97.5 F L 11/04/17 08:35 Pulse Rate 81 11/04/17 10:00 Respiratory Rate 20 11/04/17 10:00 Blood Pressure 109/60 11/04/17 10:00 O2 Sat by Pulse Oximetry 99 11/04/17 10:00 Oxygen Delivery Oxygen Delivery Room Air Medical Decision Making - Lab Data Result diagrams: 11/04/17 08:40 11/04/17 08:40 Lab Results 11/04/17 11/04/17 11/04/17 Range/Units 08:31 08:40 08:40 WBC 13.2 H (4.3-11.1) K/mcL RBC 4.24 (3.82-4.97) M/mcL Hgb 13.6 (11.5-15.4) g/dL Hct 39.9 (35.3-44.9) % MCV 94.1 (83.0-100.0) fL MCH 32.1 (28.0-33.3) pg MCHC 34.1 (31.6-35.5) g/dL RDW 12.7 (11.5-14.5) % Plt Count 255 (140-400) K/mcL MPV 9.9 (9.4-12.4) fL Immature Gran % 0.4 (0-4) % Seg Neutrophils % 83.4 % Lymphocytes % 11.0 % Monocytes % 3.6 % Eosinophils % 1.4 % Basophils % 0.2 % Neutrophils # 11.0 H (1.6-8.9) K/mcL Lymphocytes # 1.5 (0.6-4.6) K/mcL Monocytes # 0.5 (0.0-1.3) K/mcL Eosinophils # 0.2 (0.0-0.6) K/mcL Basophils # 0.0 (0.0-0.2) K/mcL Sodium 131 L (136-145) mEq/L Potassium 5.5 H (3.5-5.1) mEq/L Chloride 98 (98-107) mEq/L Carbon Dioxide 20 L (23-29) mEq/L BUN 20 (6-20) mg/dL Creatinine 1.05 (0.60-1.20) mg/dL Est GFR ( Amer) > 60 (> 60) Est GFR (Non-Af Amer) 55 L (> 60) BUN/Creatinine Ratio 19 (6-26) Glucose 697 H* (70-105) mg/dL Calculated Osmolality 308 H (280-300) Lactic Acid (0.5-2.2) mmol/L Calcium 9.3 (8.6-10.3) mg/dL Total Bilirubin 1.1 H (0.3-1.0) mg/dL AST 23 (13-39) Units/L ALT 26 (7-52) Units/L Alkaline Phosphatase 88 (34-104) Units/L Troponin I < 0.03 (< 0.04) ng/mL Serum Total Protein 6.8 (6.4-8.9) g/dL Albumin 4.2 (3.5-5.7) g/dL Globulin 2.6 (2.4-3.5) g/dL Albumin/Globulin Ratio 1.6 (1.1-2.2) Lipase 8 L (11-82) Units/L Beta-Hydroxybutyric Acd (0.02-0.27) mmol/L Urine Color Yellow (Yellow) Urine Clarity Clear (Clear) Urine pH 5.5 (5.0-8.0) pH Units Ur Specific [place] 1.028 H (1.010-1.025) Urine Protein Negative (Neg-Trace) mg/dL Urine Glucose (UA) >=1000 H (Normal) mg/dL Urine Ketones 40 H (Negative) mg/dL Urine Blood Negative (Negative) Urine Nitrite Negative (Negative) Urine Bilirubin Negative (Negative) Urine Urobilinogen Normal (Normal) mg/dL Ur Leukocyte Esterase Negative (Negative) Ur Culture Indicated? NO (NO) 11/04/17 11/04/17 Range/Units 08:48 09:23 WBC (4.3-11.1) K/mcL RBC (3.82-4.97) M/mcL Hgb (11.5-15.4) g/dL Hct (35.3-44.9) % MCV (83.0-100.0) fL MCH (28.0-33.3) pg MCHC (31.6-35.5) g/dL RDW (11.5-14.5) % Plt Count (140-400) K/mcL MPV (9.4-12.4) fL Immature Gran % (0-4) % Seg Neutrophils % % Lymphocytes % % Monocytes % % Eosinophils % % Basophils % % Neutrophils # (1.6-8.9) K/mcL Lymphocytes # (0.6-4.6) K/mcL Monocytes # (0.0-1.3) K/mcL Eosinophils # (0.0-0.6) K/mcL Basophils # (0.0-0.2) K/mcL Sodium (136-145) mEq/L Potassium (3.5-5.1) mEq/L Chloride (98-107) mEq/L Carbon Dioxide (23-29) mEq/L BUN (6-20) mg/dL Creatinine (0.60-1.20) mg/dL Est GFR ( Amer) (> 60) Est GFR (Non-Af Amer) (> 60) BUN/Creatinine Ratio (6-26) Glucose (70-105) mg/dL Calculated Osmolality (280-300) Lactic Acid 1.0 (0.5-2.2) mmol/L Calcium (8.6-10.3) mg/dL Total Bilirubin (0.3-1.0) mg/dL AST (13-39) Units/L ALT (7-52) Units/L Alkaline Phosphatase (34-104) Units/L Troponin I (< 0.04) ng/mL Serum Total Protein (6.4-8.9) g/dL Albumin (3.5-5.7) g/dL Globulin (2.4-3.5) g/dL Albumin/Globulin Ratio (1.1-2.2) Lipase (11-82) Units/L Beta-Hydroxybutyric Acd > 2.00 H (0.02-0.27) mmol/L Urine Color (Yellow) Urine Clarity (Clear) Urine pH (5.0-8.0) pH Units Ur Specific Merna (1.010-1.025) Urine Protein (Neg-Trace) mg/dL Urine Glucose (UA) (Normal) mg/dL Urine Ketones (Negative) mg/dL Urine Blood (Negative) Urine Nitrite (Negative) Urine Bilirubin (Negative) Urine Urobilinogen (Normal) mg/dL Ur Leukocyte Esterase (Negative) Ur Culture Indicated? (NO) Attestation Statement - Attestation Attestation: I, Jase Bustamante, examined this patient and my medical decision-making was reviewed with the PATTERN ROOM ATTENDANT/PA/Advanced Practice Nurse/Resident Physician. I agree with the documented findings, disposition and treatment plan as described except to the extent set forth below. 51-year-old female presents emergency Department with concerns of hyperglycemia. Patient states she is a type I diabetic and has had multiple episodes of DKA in the past. Patient has an insulin pump which she states is new within the past 3 weeks. She states that she has been bolusing herself with insulin like she regularly does. Denies recent injury, changes in medications, fever, chills, vomiting, diarrhea. Patient denies chest pain or shortness of breath however she does have a mild generalized abdominal pain and started to vomit in the emergency Department. This may be related to early DKA. Patient had a significantly elevated blood sugar in the emergency Department however she does not have an anion gap on testing. She does have elevated beta hydroxybutyric acid. Patient given IV fluids in the emergency department. She will be admitted to the hospitalist for further care and evaluation. She was given insulin in emergency department.
[2017-11-04] MEDS ORDERED: Insulin Regular, Human 100 UNIT/ML IV PRN (12:44)
[2017-11-04] MEDS ORDERED: *HR* Dextrose 50 % in Water (Syg) 50 ML SYRINGE IVP PRN ×2 (12:44→18:01)
[2017-11-04] MEDS ORDERED: Insulin Human Regular 100 UNIT in 0.9 % Sodium Chloride 100 ML IVC SCH (12:45)
[2017-11-04] MEDS ORDERED: Naloxone 0.4 MG/ML INJ IVP PRN (12:53)
--- NOTE | 2017-11-04 13:06 | Internal Med History&Physical ---
Date of Encounter: 11/04/17 Time of Encounter: 11:00 Internal Medicine - H&P: HPI Chief complaint: Hyperglycemia Admitted From: Home Plans for Post Hospital Care: Home History of present illness: Patient is a 51-year-old male with past medical history significant for diabetes , hypertension and hyperlipidemia who presents to the ER on 11/04/17 due to hyperglycemia. Patient reports that she checked her blood sugars this morning and were elevated so decided to come to the ER for evaluation. She has been to the ER multiple times for hyperglycemia and apparently does not know how to work her insulin pump. In the ER, her blood glucose was 697 and she was given 10 units of insulin in addition to 2 L of fluids. Patient will be admitted to the progressive unit for hyperglycemic control. Past Med Surg Social Fam HX - Past Medical History Medical history: DVT, diabetes, hyperlipidemia, hypertension, migraine, thyroid disease Psychiatric history: no psych history - Past Surgical History Surgical History: carotid endarterectomy, cholecystectomy, hysterectomy, other, LE stent (s) Additional surgical history: [place]. shoulder surgery, elbow surgery, subclavian bypass - Social History Smoking Status: Former smoker Smokeless Tobacco Status: No Alcohol use: none Drug use: none - Family History Mother Adopted: No Family Member Ethnicity: Non- Living Status: Age at : 61 Cause of : sepsis from CABG Hx Family Cardiac Disorders: Yes Hx Family Respiratory Disorders: Yes Hx Family Cancer: No Hx Family GI Disorders: No Hx Family Endocrine Disorder: Yes Hx Family Neuromuscular Disorders: No Hx Family Neurologic Disorders: No Hx Family HEENT Disorders: No Hx Family Autoimmune Disorders: No Father Adopted: No Family Member Ethnicity: Non- Living Status: Age at : 79 Cause of : CHF Hx Family Cardiac Disorders: Yes Hx Family Respiratory Disorders: Yes Hx Family Cancer: Yes Hx Family GI Disorders: No Hx Family Endocrine Disorder: No Hx Family Neuromuscular Disorders: No Hx Family Neurologic Disorders: No Hx Family HEENT Disorders: No Hx Family Autoimmune Disorders: No Internal Medicine - H&P: Meds Amlodipine Besylate 2.5 mg PO DAILY 09/22/17 [History] Atorvastatin Calcium [Lipitor] 80 mg PO HS 09/22/17 [History] Clopidogrel [Plavix] 75 mg PO DAILY 09/22/17 [History] Cyclobenzaprine HCl 10 mg PO TID PRN 09/22/17 [History] Dicyclomine [Bentyl] 10 mg PO TID 09/22/17 [History] Estradiol 2 mg PO HS 09/22/17 [History] Famotidine [Pepcid] 40 mg PO DAILY 09/22/17 [History] Levothyroxine [Synthroid] 100 mcg PO 0630 09/22/17 [History] Meloxicam 15 mg PO DAILY 09/22/17 [History] Subcutaneous Insulin Pump [T:Slim] 1 each MC AD 09/22/17 [History] Topiramate [Topamax] 25 mg PO BID 09/22/17 [History] 3 Allergy/AdvReac Type Severity Reaction Status Date / Time Sulfa (Sulfonamide Allergy See Verified 11/04/17 10:32 Antibiotics) Comments acetaminophen [From Lortab] AdvReac Nausea Verified 11/04/17 10:32 gabapentin [From Neurontin] AdvReac See Verified 11/04/17 10:32 Comments hydrocodone [From Lortab] AdvReac Nausea Verified 11/04/17 10:32 metoprolol [From Lopressor] AdvReac Hypotension Verified 10/16/17 14:36 morphine AdvReac Nausea Verified 11/04/17 10:32 Oxycodone [From Percocet] AdvReac Itching Verified 11/04/17 10:32 Oxymorphone [From Opana] AdvReac Nausea Verified 11/04/17 10:32 Penicillins AdvReac Abdominal Verified 11/04/17 10:32 Pain All Systems PM: A 10-system review of systems was performed and is negative for pertinent findings except as documented above in the HPI. - Constitutional Vitals: Temp Pulse Resp BP Pulse Ox 97.6 F 81 18 125/61 98 11/04/17 12:00 11/04/17 12:00 11/04/17 12:00 11/04/17 12:00 11/04/17 12:00 General appearance: Present: A&O X 3, no acute distress - Eye Eye exam: Present: normal appearance - ENT ENT exam: Present: mucous membranes moist - Respiratory Respiratory exam: Present: CTAB. Absent: accessory muscle use, rales, rhonchi, wheezes - Cardiovascular Cardiovascular exam: Present: RRR, +S1, +S2. Absent: diastolic murmur, gallop, rubs, systolic murmur - GI/Abdominal GI/Abdominal exam: Present: normal bowel sounds, soft, no peritoneal signs. Absent: distended, tenderness - Extremities Exam Extremities exam: Absent: pedal edema - Neurological Exam Neurological exam: Present: oriented X3 - Psychiatric Psychiatric exam: Present: normal mood - Skin Skin exam: Present: normal color Internal Med - H&P Results - Labs CBC & Chem 7: 11/04/17 08:40 11/04/17 08:40 - Assessment and plan (1) Hyperglycemia Current Visit: Yes Status: Acute Assessment and plan: Patient with a blood glucose of 697 on admission and was given 10 units of insulin in addition to 2 L of fluid Patient with anion gap of 13 but ketones in urine addition to elevated beta hydroxy Repeat blood sugars on the unit now in the 300s Will place patient on basal insulin in addition to sliding scale insulin (2) DM type 1 (diabetes mellitus, type 1) Current Visit: No Status: Chronic Assessment and plan: Will discontinue patient's insulin pump due to persistent hyperglycemia episodes and start patient on basal insulin as above in addition to sliding scale She will follow up with systems developer as an outpatient. Qualifiers: Diabetes mellitus complication status: with hyperglycemia Qualified Code(s) : E10.65 - Type 1 diabetes mellitus with hyperglycemia (3) Hypertension Current Visit: No Status: Acute Assessment and plan: Continue home medications Qualifiers: Hypertension type: essential hypertension Qualified Code(s): I10 - Essential (primary) hypertension (4) CAD (coronary artery disease) of artery bypass graft Current Visit: No Status: Chronic Assessment and plan: Continue home medications Qualifiers: Associated angina: without angina Qualified Code(s): I25.810 - Atherosclerosis of coronary artery bypass graft(s) without angina pectoris (5) Hyperlipidemia Current Visit: No Status: Chronic Assessment and plan: Continue home medications Qualifiers: Hyperlipidemia type: unspecified Qualified Code(s): E78.5 - Hyperlipidemia , unspecified (6) Hypothyroidism Current Visit: No Status: Chronic Assessment and plan: Continue home medications Qualifiers: Hypothyroidism type: acquired Qualified Code(s): E03.9 - Hypothyroidism, unspecified (7) DVT prophylaxis Current Visit: No Status: Acute Assessment and plan: Subcutaneous heparin - Time Spent With Patient Total time spent is greater than 50% in coordination of care (as documented) at patient's floor/unit and/or counseling patient:
[2017-11-04 13:52] LABS: VBG HCO3 21 mEq/L (21-27); VBG PCO2 46 mmHg (41-51); VBG PH 7.26 pH Units (7.32-7.42); VBG PO2 129 mmHg (25-50)
[2017-11-04 14:09] LABS: BUN/Creatinine Ratio 23 (6-26); Blood Urea Nitrogen 20 mg/dL (6-20); Calcium 8.3 mg/dL (8.6-10.3); Carbon Dioxide 22 mEq/L (23-29); Chloride 108 mEq/L (98-107); Glucose 375 mg/dL (70-105); Osmolality,Calculated 298 (280-300); Potassium 4.4 mEq/L (3.5-5.1); Sodium 135 mEq/L (136-145); eGFR For Non-African Americans > 60 (> 60)
[2017-11-04] MEDS: 0.45 % Sodium Chloride w/KCl 20 MEQ/1,000 ML MLS IVC SCH ×2 (14:55→16:50)
[2017-11-04] MEDS: *HR* Heparin 5,000 UNIT/ML VIAL SQ SCH ×2 (14:55→21:33)
[2017-11-04 16:49] LABS: ABG Base Excess -6 mEq/L (-2 to 3); ABG HCO3 19 mEq/L (21-27); ABG Oxygen Saturation 95 % (95-98); ABG PCO2 35 mmHg (35-45); ABG PH 7.35 pH Units (7.32-7.45); ABG PO2 79 mmHg (85-104); ABG TCO2 20 mEq/L (20-26)
[2017-11-04 17:50] LABS: BUN/Creatinine Ratio 22 (6-26); Blood Urea Nitrogen 18 mg/dL (6-20); Calcium 8.2 mg/dL (8.6-10.3); Carbon Dioxide 20 mEq/L (23-29); Chloride 111 mEq/L (98-107); Glucose 163 mg/dL (70-105); Osmolality,Calculated 287 (280-300); Potassium 3.7 mEq/L (3.5-5.1); Sodium 136 mEq/L (136-145); eGFR For Non-African Americans > 60 (> 60)
[2017-11-04] MEDS ORDERED: D5% in Water 1,000 ML IVC PRN (18:01)
[2017-11-04] MEDS ORDERED: Dextrose Gel 15 GM/37.5 ML TUBE PO PRN ×2 (18:01)
[2017-11-04] MEDS ORDERED: Potassium Effervescent 25 MEQ TABLET.EFF PO ONE (18:07)
[2017-11-04] MEDS ORDERED: Insulin LISPRO 300 UNITS/3 ML VIAL SQ SCH (21:00)
[2017-11-04] MEDS ORDERED: PATIENT TAKING PO SCH (21:00)
--- NOTE | 2017-11-04 21:19 | Electrocardiograph Report ---
[place] [id number] Test Date: 2017-11-04 Pat Name: Chaya Reina Department: 103 Room: [facility] Gender: F Leather Skinner: MSC : 1965 Requested By: Brandon Rose Order Number: [id number] Reading MD: Renea Meyers Measurements Intervals [place] Rate: 76 P: 61 NE: 176 QRS: 46 QRSD: 82 T: 43 QT: 416 QTc: 446 Interpretive Statements SINUS RHYTHM Electronically Signed On 11-04-2017 21:17:03 EDT by Renea Meyers
[2017-11-04] MEDS: Insulin DETEMIR 100 UNIT/ML X5UNITS SQ SCH (21:24)
[2017-11-04] MEDS: Insulin LISPRO 300 UNITS/3 ML VIAL SQ SCH (21:25)
[2017-11-05 00:53] LABS: BUN/Creatinine Ratio 20 (6-26); Blood Urea Nitrogen 16 mg/dL (6-20); Calcium 8.2 mg/dL (8.6-10.3); Carbon Dioxide 22 mEq/L (23-29); Chloride 111 mEq/L (98-107); Glucose 206 mg/dL (70-105); Osmolality,Calculated 293 (280-300); Potassium 4.1 mEq/L (3.5-5.1); Sodium 138 mEq/L (136-145); eGFR For Non-African Americans > 60 (> 60)
[2017-11-05] MEDS: *HR* Heparin 5,000 UNIT/ML VIAL SQ SCH (06:03)
[2017-11-05] MEDS: Insulin LISPRO 300 UNITS/3 ML VIAL SQ SCH ×3 (07:36→11:52)
[2017-11-05] MEDS: Insulin DETEMIR 100 UNIT/ML X5UNITS SQ SCH (08:10)
[2017-11-05] MEDS ORDERED: Topiramate 25 MG TABLET PO SCH (09:00)
[2017-11-05] MEDS ORDERED: Famotidine 20 MG TABLET PO SCH (09:00)
[2017-11-05] MEDS ORDERED: amLODIPine 5 MG TABLET PO SCH (09:00)
[2017-11-05 12:00] VITALS: BP 124/60
--- NOTE | 2017-11-05 13:16 | Internal Med Progress Note ---
<EduardAdama Patito - Last Filed: 11/05/17 13:13> Hospitalist Progress Note - Encounter Date of Encounter: 11/05/17 Time of Encounter: 09:30 - Subjective Interval History: Patient seen and examined. She denies any concerns or complaints today. History of type 1 diabetes. She reports that she has been on an insulin pump for about 10 years. She just got a new insulin pump a few weeks ago, and had not had any difficulties with it. She thinks that when she switched her site a couple days ago she may have put it in some scar tissue, and therefore her insulin was not being absorbed properly. She reports no difficulties with being able to use her insulin pump. She states over the past couple weeks her blood sugars have been around 200, which is pretty normal for her. Initially she was having some chest pain and nausea when she presented to the ED, but the symptoms have now resolved. She denies fevers, chills, headache, change in vision, chest pain, dyspnea, cough, abdominal pain, nausea, vomiting, change in bowels, or dysuria. - Exam Vitals: Temp Pulse Resp BP Pulse Ox 98.1 F 69 20 124/60 95 11/05/17 03:18 11/05/17 11:00 11/05/17 11:00 11/05/17 11:00 11/05/17 11:00 Exam: GEN: No acute distress, A&Ox3 HEAD: Atraumatic, normocephalic EYES: Pupils symmetric, sclerae white, conjunctivae pink HEART: RRR, normal S1 and S2, no murmurs LUNGS: Clear to auscultation bilaterally, no wheezes, rhonchi, or crackles ABD: Soft, nontender, nondistended, bowel sounds present EXT: No edema noted, pulses 2/4 NEURO: No focal deficits, cooperative with exam - Assessment and Plan (1) Hyperglycemia Status: Acute Assessment and Plan: Initially 697 on admission, but knows much improved No elevation of anion gap, but did have ketones in the urine and elevated beta hydroxy butyric acid Blood sugars are now 100-200s Will switch back to insulin pump and monitor overnight (2) DM type 1 (diabetes mellitus, type 1) Status: Chronic Assessment and Plan: Plan to restart insulin pump and monitor overnight Will need to follow up with endocrinology as an outpatient (3) CAD (coronary artery disease) Status: Acute Assessment and Plan: Continue home medications (4) Hypertension Status: Chronic Assessment and Plan: Continue home medications. Normotensive (5) Hyperlipidemia Status: Chronic Assessment and Plan: Continue home medications (6) Hypothyroidism Status: Chronic Assessment and Plan: Continue home medications DVT Prophylaxis: Subcutaneous heparin - Time Spent with Patient Total time spent is greater than 50% in coordination of care (as documented) at patient's floor/unit and/or counseling patient: Internal Medicine: Result - Labs CBC & Chem 7: 11/04/17 08:40 11/05/17 00:24 Labs: BMP 11/04/17 11/04/17 11/05/17 13:11 17:16 00:24 Sodium 135 L 136 138 Potassium 4.4 3.7 4.1 Chloride 108 H 111 H 111 H Carbon Dioxide 22 L 20 L 22 L BUN 20 18 16 Creatinine 0.87 0.83 0.80 Glucose 375 H 163 H 206 H Calcium 8.3 L 8.2 L 8.2 L - ABG Interpretation ABG results: ABG ABG pH 7.35 pH Units (7.32-7.45) 11/04/17 16:31 ABG pCO2 35 mmHg (35-45) 11/04/17 16:31 ABG pO2 79 mmHg (85-104) L 11/04/17 16:31 ABG O2 Saturation 95 % (95-98) 11/04/17 16:31 Consult Discharge Plan - Plan Additional Instructions: Please resume insulin pump and management as before Over the next few days please check your blood sugar more frequently and return to the hospital if it is increasing Please follow-up with endocrinology within the next week Referrals: Betito Staley MD [Primary Care Provider] - Arlene Yan CNP [Advanced Practice Nurse] - <Krystal Rose - Last Filed: 11/05/17 14:53> Hospitalist Progress Note - Encounter Date of Encounter: 11/05/17 - Exam Vitals: Temp Pulse Resp BP Pulse Ox 98.1 F 69 20 124/60 95 11/05/17 03:18 11/05/17 11:00 11/05/17 11:00 11/05/17 11:00 11/05/17 11:00 - Assessment and Plan (1) Hypertension Status: Chronic (2) Hyperlipidemia Status: Chronic (3) CAD (coronary artery disease) of artery bypass graft Status: Chronic (4) Hypothyroidism Status: Chronic (5) DVT prophylaxis Status: Acute (6) DM type 1 (diabetes mellitus, type 1) Status: Chronic (7) Hyperglycemia Status: Acute - Time Spent with Patient Total time spent is greater than 50% in coordination of care (as documented) at patient's floor/unit and/or counseling patient: Internal Medicine: Result - Labs CBC & Chem 7: 11/04/17 08:40 11/05/17 00:24 Labs: BMP 11/04/17 11/05/17 17:16 00:24 Sodium 136 138 Potassium 3.7 4.1 Chloride 111 H 111 H Carbon Dioxide 20 L 22 L BUN 18 16 Creatinine 0.83 0.80 Glucose 163 H 206 H Calcium 8.2 L 8.2 L - ABG Interpretation ABG results: ABG ABG pH 7.35 pH Units (7.32-7.45) 11/04/17 16:31 ABG pCO2 35 mmHg (35-45) 11/04/17 16:31 ABG pO2 79 mmHg (85-104) L 11/04/17 16:31 ABG O2 Saturation 95 % (95-98) 11/04/17 16:31 - Attending Attestation I have seen and examined this patient today. I have discussed with resident physician Dr Chapa regarding the discharge and follow-up plan. Agree with the documentation. <Adama Chapa - Last Filed: 11/05/17 13:13> (2) DM type 1 (diabetes mellitus, type 1) Qualifiers: Diabetes mellitus complication status: with hyperglycemia Qualified Code(s): E10.65 - Type 1 diabetes mellitus with hyperglycemia (3) CAD (coronary artery disease) Qualifiers: Coronary Disease-Associated Artery/Lesion type: [place] artery [place] vs. transplanted heart: [place] heart Qualified Code(s): I25.10 - Atherosclerotic heart disease of [place] coronary artery without angina pectoris (4) Hypertension Qualifiers: Hypertension type: essential hypertension Qualified Code(s): I10 - Essential (primary) hypertension (5) Hyperlipidemia Qualifiers: Hyperlipidemia type: unspecified Qualified Code(s): E78.5 - Hyperlipidemia, unspecified (6) Hypothyroidism Qualifiers: Hypothyroidism type: acquired Qualified Code(s): E03.9 - Hypothyroidism, unspecified <Krystal Rose - Last Filed: 11/05/17 14:53> (1) Hypertension Qualifiers: Hypertension type: essential hypertension Qualified Code(s): I10 - Essential (primary) hypertension (2) Hyperlipidemia Qualifiers: Hyperlipidemia type: unspecified Qualified Code(s): E78.5 - Hyperlipidemia, unspecified (3) CAD (coronary artery disease) of artery bypass graft Qualifiers: Associated angina: without angina (4) Hypothyroidism Qualifiers: Hypothyroidism type: acquired Qualified Code(s): E03.9 - Hypothyroidism, unspecified (6) DM type 1 (diabetes mellitus, type 1) Qualifiers: Diabetes mellitus complication status: with hyperglycemia Qualified Code(s): E10.65 - Type 1 diabetes mellitus with hyperglycemia
--- NOTE | 2017-11-05 13:42 | Discharge Summary ---
<Adama Chapa - Last Filed: 11/05/17 13:39> Date of Encounter: 11/05/17 Time of Encounter: 13:39 - Discharge Diagnosis (1) Hyperglycemia Priority: Primary Status: Acute (2) DM type 1 (diabetes mellitus, type 1) Priority: Secondary Status: Chronic Qualifiers: Diabetes mellitus complication status: with hyperglycemia Qualified Code(s) : E10.65 - Type 1 diabetes mellitus with hyperglycemia (3) Hypertension Priority: Secondary Status: Chronic Qualifiers: Hypertension type: essential hypertension Qualified Code(s): I10 - Essential (primary) hypertension (4) Hyperlipidemia Priority: Secondary Status: Chronic Qualifiers: Hyperlipidemia type: unspecified Qualified Code(s): E78.5 - Hyperlipidemia , unspecified (5) Hypothyroidism Priority: Secondary Status: Chronic Qualifiers: Hypothyroidism type: acquired Qualified Code(s): E03.9 - Hypothyroidism, unspecified Hospital course: Ms. Reina is a 51 year old female with PMH of type 1 diabetes, hypertension, hyperlipidemia, and hypothyroidism admitted with hyperglycemia. Blood glucose on presentation to the ED was 697. No elevation of anion gap, but did have ketones in her urine and elevated beta hydroxybutyric acid. She reports that she has been on an insulin pump for about 10 years, and does not have any difficulty managing her pump. She feels that when she changed her site recently she likely changed it to an area of scar tissue in her insulin is not being absorbed properly. Her insulin pump was stopped upon admission, she was placed on basal and sliding scale insulin. Blood sugars were much more controlled through the night, currently 100-200's. She initially had some symptoms of chest pain and nausea, but those symptoms have resolved with her glucose improving. She can be discharged home to resume her insulin pump, and follow-up with endocrinology. Discharge discussed with: patient - Time Spent with Patient Total time spent providing and/or coordinating discharge services: - Discharge Medications Home Medications: Amlodipine Besylate 2.5 mg PO DAILY 09/22/17 [History] Atorvastatin Calcium [Lipitor] 80 mg PO HS 09/22/17 [History] Clopidogrel [Plavix] 75 mg PO DAILY 09/22/17 [History] Cyclobenzaprine HCl 10 mg PO TID PRN 09/22/17 [History] Dicyclomine [Bentyl] 10 mg PO TID 09/22/17 [History] Estradiol 2 mg PO HS 09/22/17 [History] Famotidine [Pepcid] 40 mg PO DAILY 09/22/17 [History] Levothyroxine [Synthroid] 100 mcg PO 0630 09/22/17 [History] Meloxicam 15 mg PO DAILY 09/22/17 [History] Subcutaneous Insulin Pump [T:Slim] 1 each MC AD 09/22/17 [History] Topiramate [Topamax] 25 mg PO BID 09/22/17 [History] Allergies/Adverse Reactions: 3 Allergy/AdvReac Type Severity Reaction Status Date / Time Sulfa (Sulfonamide Allergy See Verified 11/04/17 10:32 Antibiotics) Comments acetaminophen [From Lortab] AdvReac Nausea Verified 11/04/17 10:32 gabapentin [From Neurontin] AdvReac See Verified 11/04/17 10:32 Comments hydrocodone [From Lortab] AdvReac Nausea Verified 11/04/17 10:32 metoprolol [From Lopressor] AdvReac Hypotension Verified 10/16/17 14:36 morphine AdvReac Nausea Verified 11/04/17 10:32 Oxycodone [From Percocet] AdvReac Itching Verified 11/04/17 10:32 Oxymorphone [From Opana] AdvReac Nausea Verified 11/04/17 10:32 Penicillins AdvReac Abdominal Verified 11/04/17 10:32 Pain Date of admission: 11/04/17 10:22 Primary care physician: Betito Staley MD Consults: 11/04/17 12:45 Consult for Pharmacy Education [CONS] Routine Reason for Consult: Education Call Completed: Yes Discharging clinician: Adama Chapa Anticipated date of discharge: 11/05/17 - Constitutional Vitals: Temp Pulse Resp BP Pulse Ox 98.1 F 69 20 124/60 95 11/05/17 03:18 11/05/17 11:00 11/05/17 11:00 11/05/17 11:00 11/05/17 11:00 - Other Additional findings: GEN: No acute distress, A&Ox3 HEAD: Atraumatic, normocephalic EYES: Pupils symmetric, sclerae white, conjunctivae pink HEART: RRR, normal S1 and S2, no murmurs LUNGS: Clear to auscultation bilaterally, no wheezes, rhonchi, or crackles ABD: Soft, nontender, nondistended, bowel sounds present EXT: No edema noted, pulses 2/4 NEURO: No focal deficits, cooperative with exam - Patient Status Disposition: Home, Self-Care Condition: Good Functional capacity at discharge: independent ambulation Overall status at discharge: patient is back to baseline - Discharge Instructions Follow Up With: Betito Staley MD [Primary Care Provider] - Arlene Yan CNP [Advanced Practice Nurse] - Forms: ED Satisfaction Letter Additional Instructions: Please resume insulin pump and management as before Over the next few days please check your blood sugar more frequently and return to the hospital if it is increasing Please follow-up with endocrinology within the next week - Diet and Activity Activity: increase activity as tolerated Diet: diabetic diet <MiltonKrystal - Last Filed: 11/05/17 14:54> Date of Encounter: 11/05/17 - Discharge Diagnosis (1) Hypertension Status: Chronic Qualifiers: Hypertension type: essential hypertension Qualified Code(s): I10 - Essential (primary) hypertension (2) Hyperlipidemia Status: Chronic Qualifiers: Hyperlipidemia type: unspecified Qualified Code(s): E78.5 - Hyperlipidemia , unspecified (3) CAD (coronary artery disease) of artery bypass graft Status: Chronic Qualifiers: Associated angina: without angina (4) Hypothyroidism Status: Chronic Qualifiers: Hypothyroidism type: acquired Qualified Code(s): E03.9 - Hypothyroidism, unspecified (5) DVT prophylaxis Status: Acute (6) DM type 1 (diabetes mellitus, type 1) Status: Chronic Qualifiers: Diabetes mellitus complication status: with hyperglycemia Qualified Code(s) : E10.65 - Type 1 diabetes mellitus with hyperglycemia (7) Hyperglycemia Status: Acute Hospital course: Ms. Reina is a 51 year old female - Time Spent with Patient Total time spent providing and/or coordinating discharge services: Date of admission: 11/04/17 10:22 Primary care physician: Betito Staley MD Consults: 11/04/17 12:45 Consult for Pharmacy Education [CONS] Routine Reason for Consult: Education Call Completed: Yes - Constitutional Vitals: Temp Pulse Resp BP Pulse Ox 98.1 F 69 20 124/60 95 11/05/17 03:18 11/05/17 11:00 11/05/17 11:00 11/05/17 11:00 08/04/18 11:00 - Attending Attestation I have seen and examined this patient today. I have discussed with resident physician Dr Chapa regarding discharge and follow-up plan. Agree with the documentation.
== END 2017-11-05 14:35 | disposition home or self-care (01) ==
LOC: EMEROO 08:18 → ICNU 10:22 → INTOOBSV 10:22 → ICNU 11:21
PROVIDERS: ADMIT Hospitalist; ATTEND Hospitalist

== ENCOUNTER 2018-12-18 02:40 | Observation (INO) ==
[2018-12-18 03:28] LABS: Basophils % 0.3 %; Eosinophils # 0.1 K/mcL (0.0-0.6); Eosinophils % 0.7 %; Hematocrit 45.5 % (35.3-44.9); Hemoglobin 14.7 g/dL (11.5-15.4); Immature Granulocytes % 0.5 % (0-4); Lymphocytes # 1.4 K/mcL (0.6-4.6); Lymphocytes % 11.2 %; Mean Corpuscular HGB Conc 32.3 g/dL (31.6-35.5); Mean Corpuscular Hemoglobin 30.9 pg (28.0-33.3); Mean Corpuscular Volume 95.6 fL (83.0-100.0); Mean Platelet Volume 9.4 fL (9.4-12.4); Monocytes # 0.4 K/mcL (0.0-1.3); Neutrophils # 10.4 K/mcL (1.6-8.9); Platelet Count 380 K/mcL (140-400); Red Blood Count 4.76 M/mcL (3.82-4.97); Red Cell Distribution Width 12.7 % (11.5-14.5); Segmented Neutrophils % 84.3 %; White Blood Count 12.3 K/mcL (4.3-11.1)
[2018-12-18 03:37] LABS: Alanine Aminotransferase 16 Units/L (7-52); Albumin/Globulin Ratio 1.3 (1.1-2.2); Alkaline Phosphatase 97 Units/L (34-104); Aspartate Amino Transferase 12 Units/L (13-39); BUN/Creatinine Ratio 16 (6-26); Bilirubin,Total 0.7 mg/dL (0.3-1.0); Blood Urea Nitrogen 16 mg/dL (6-20); Calcium 8.6 mg/dL (8.6-10.3); Carbon Dioxide 13 mEq/L (23-29); Chloride 103 mEq/L (98-107); Glucose 445 mg/dL (70-105); Lipase 5 Units/L (11-82); Osmolality,Calculated 300 (280-300); Potassium 4.6 mEq/L (3.5-5.1); Sodium 135 mEq/L (136-145); eGFR For African Americans > 60 (> 60); eGFR For Non-African Americans 58 (> 60)
[2018-12-18] MEDS ORDERED: Ketorolac 15 MG/ML VIAL IVP ONE (03:46)
[2018-12-18] MEDS ORDERED: Prochlorperazine 10 MG/2 ML VIAL IVP ONE (03:46)
--- NOTE | 2018-12-18 03:49 | Emergency Department Note ---
Disposition Clinical Impression: DKA (diabetic ketoacidoses) Qualifiers: Diabetes mellitus type: type 1 Diabetes mellitus complication detail: without coma Qualified Code(s): E10.10 - Type 1 diabetes mellitus with ketoacidosis without coma Disposition: Admitted As Inpatient Condition: Good Time of Disposition: 06:07 General Adult HPI - General Chief complaint: ED Nausea/Vomiting/Diarrhea Stated complaint: N/V/D, HUNT, IBS Flare Time Seen by Provider: 12/18/18 03:15 Source: patient Limitations: no limitations Nursing Notes Reviewed: Yes Vital Signs Reviewed: Yes - History of Present Illness HPI Narrative: 53-year-old female insulin-dependent diabetic presents with complaint of "IBS flareup" including one-week duration of nausea vomiting diarrhea. She describes some generalized abdominal pain. She also mentions her symptoms have recently given her headache. She states that she has not had a flareup for years. She does describe previous workups with colonoscopy, and is followed by her primary care provider for this. She mentions typically when she is not having a flareup her stools have been normal. She had no relief with her home medication Bentyl. She describes her headache is gradual in onset. She denies any hemoptysis, bloody stools, recent travel, lightheadedness, fever, chills Pain Scale: 7 - Related Data Home Medications Medication Instructions Recorded Confirmed Amlodipine Besylate 2.5 mg PO DAILY 09/22/17 11/04/17 Atorvastatin Calcium [Lipitor] 80 mg PO HS 09/22/17 11/04/17 Clopidogrel [Plavix] 75 mg PO DAILY 09/22/17 11/04/17 Cyclobenzaprine HCl 10 mg PO TID PRN 09/22/17 11/04/17 Dicyclomine [Bentyl] 10 mg PO TID 09/22/17 11/04/17 Estradiol 2 mg PO HS 09/22/17 11/04/17 Famotidine [Pepcid] 40 mg PO DAILY 09/22/17 11/04/17 Levothyroxine [Synthroid] 100 mcg PO 0630 09/22/17 11/04/17 Meloxicam 15 mg PO DAILY 09/22/17 11/04/17 Subcutaneous Insulin Pump [T:Slim] 1 each MC AD 09/22/17 11/04/17 Topiramate [Topamax] 25 mg PO BID 09/22/17 11/04/17 Allergies Allergy/AdvReac Type Severity Reaction Status Date / Time Sulfa (Sulfonamide Allergy See Verified 11/30/18 19:09 Antibiotics) Comments gabapentin [From Neurontin] AdvReac See Verified 11/30/18 19:09 Comments hydrocodone [From Lortab] AdvReac Nausea Verified 11/30/18 19:09 metoprolol [From Lopressor] AdvReac Hypotension Verified 11/30/18 19:09 morphine AdvReac Nausea Verified 11/30/18 19:09 oxycodone [From Percocet] AdvReac Itching Verified 11/30/18 19:09 oxymorphone [From Opana] AdvReac Nausea Verified 11/30/18 19:09 Penicillins AdvReac Abdominal Verified 11/30/18 19:09 Pain All systems ED: reviewed and negative except as stated. Review of Systems: As Per HPI Constitutional: Denies: fever, chills Eyes: Denies: eye pain ENT ED: Denies: throat pain Cardiovascular: Denies: chest pain, palpitations Respiratory: Denies: dyspnea Gastrointestinal: Reports: as per HPI. Denies: constipation, hematemesis, melena, hematochezia Genitourinary: Denies: dysuria Musculoskeletal: Denies: back pain, neck pain, joint swelling Integumentary: Denies: rash Neurological: Denies: weakness Endocrine: Denies: fatigue Hematological/Lymphatic: Denies: lymphadenopathy Allergic/Immunologic: Denies: facial swelling Past Medical History - Past Medical History Medical history: Reports: DVT, diabetes, hyperlipidemia, hypertension, migraine, thyroid disease, other Surgical history: Reports: carotid endarterectomy, cholecystectomy, hysterectomy, other, LE stent (s) Psychiatric history: Reports: no psych history - Social History Smoking Status: Former smoker Smokeless Tobacco Status: No Alcohol use: Reports: none Drug use: Reports: none Physical Exam - General Limitations: no limitations General appearance: alert, in no apparent distress - Head Head exam: atraumatic, normocephalic - Eye Eye exam: Present: normal appearance, EOMI - ENT ENT exam: normal oropharynx, mucous membranes moist - Neck Neck exam: Present: full ROM - Chest Chest inspection: Present: symmetric chest wall rise - Respiratory Respiratory exam: Present: normal lung sounds bilaterally. Absent: respiratory distress, wheezes - Cardiovascular Cardiovascular exam: Present: regular rate - Abdominal Exam Abdominal exam: Present: soft, tenderness, normal bowel sounds - Extremities Exam Extremities exam: Present: normal inspection, full ROM, normal capillary refill - Back Exam Back exam: Present: full ROM. Absent: CVA tenderness (R), CVA tenderness (L) - Neurological Exam Neurological exam: Present: alert - Psychiatric Psychiatric exam: Present: normal affect, normal mood - Skin Skin exam: Present: warm, dry, intact, normal color. Absent: rash, cyanosis, diaphoresis Course Course Narrative: Patient seen and examined. she appears uncomfortable but no acute distress. Vitals within normal limits. She has some generalized abdominal tenderness with no focal pain. No peritoneal signs. No flank pain. Lungs clear to auscultation. Appears well-hydrated. 3-4 emesis in the past day. last BM described as loose watery diarrhea, was yesterday. Abdominal pain workup ordered. We will plan for antiemetics and analgesics. - Reevaluation(s) Reevaluation #1: Patient has a slight increase in white blood cell count 12.3 with neutrophils 10.4 Glucose 445. Serum ketones and VBG ordered. Urinalysis pending. Patient does have an insulin pump. Is currently running basal. She had approximately 5.3 units bolused approximately 4 hours ago. Subcutaneous insulin ordered. Fluids are running. Time: 04:00 Reevaluation #2: Pt VBG ph 7.1, with serum ketones. Will plan for admission for DKA. Pt pump now disconnected. Discussed with Dr. Pritchett who had facetime with patient and agreed for admission. Time: 05:35 Reevaluation #3: Patient discussed with hospitalist Dr. Aguilar who accepted patient. Time: 06:06 Vital Signs Temperature 97.6 F 12/18/18 02:42 Pulse Rate 88 12/18/18 02:42 Respiratory Rate 16 12/18/18 02:42 Blood Pressure 145/70 12/18/18 02:42 O2 Sat by Pulse Oximetry 99 12/18/18 02:42 Temperature 97.6 F 12/18/18 02:42 Pulse Rate 82 12/18/18 04:15 Respiratory Rate 19 12/18/18 04:15 Blood Pressure 130/63 12/18/18 04:15 O2 Sat by Pulse Oximetry 100 12/18/18 04:15 Oxygen Delivery Oxygen Delivery Room Air Medical Decision Making - MDM Narrative Medical decision making narrative: Laboratory Tests 12/18/18 12/18/18 12/18/18 02:55 02:55 03:40 WBC 12.3 H RBC 4.76 Hgb 14.7 Hct 45.5 H MCV 95.6 MCH 30.9 MCHC 32.3 RDW 12.7 Plt Count 380 MPV 9.4 Immature Gran % 0.5 Seg Neutrophils % 84.3 Lymphocytes % 11.2 Monocytes % 3.0 Eosinophils % 0.7 Basophils % 0.3 Neutrophils # 10.4 H Lymphocytes # 1.4 Monocytes # 0.4 Eosinophils # 0.1 Basophils # 0.0 VBG pH VBG pCO2 VBG pO2 VBG HCO3 Sodium 135 L Potassium 4.6 Chloride 103 Carbon Dioxide 13 L BUN 16 Creatinine 1.00 Est GFR ( Amer) > 60 Est GFR (Non-Af Amer) 58 L BUN/Creatinine Ratio 16 Glucose 445 H POC Glucose Calculated Osmolality 300 Calcium 8.6 Total Bilirubin 0.7 AST 12 L ALT 16 Alkaline Phosphatase 97 Serum Total Protein 7.0 Albumin 4.0 Globulin 3.0 Albumin/Globulin Ratio 1.3 Lipase 5 L Beta-Hydroxybutyric Acd Urine Color Yellow Urine Clarity Clear Urine pH 5.5 Ur Specific Burkett 1.030 H Urine Protein Negative Urine Glucose (UA) >=1000 H Urine Ketones >=160 H Urine Blood Negative Urine Nitrite Negative Urine Bilirubin Negative Urine Urobilinogen Normal Ur Leukocyte Esterase Negative Ur Culture Indicated? NO Person Notif of Crit 12/18/18 12/18/18 12/18/18 04:16 04:43 04:56 WBC RBC Hgb Hct MCV MCH MCHC RDW Plt Count MPV Immature Gran % Seg Neutrophils % Lymphocytes % Monocytes % Eosinophils % Basophils % Neutrophils # Lymphocytes # Monocytes # Eosinophils # Basophils # VBG pH 7.20 L* VBG pCO2 36 L VBG pO2 60 H VBG HCO3 14 L Sodium Potassium Chloride Carbon Dioxide BUN Creatinine Est GFR ( Amer) Est GFR (Non-Af Amer) BUN/Creatinine Ratio Glucose POC Glucose 473 H* Calculated Osmolality Calcium Total Bilirubin AST ALT Alkaline Phosphatase Serum Total Protein Albumin Globulin Albumin/Globulin Ratio Lipase Beta-Hydroxybutyric Acd > 2.00 H Urine Color Urine Clarity Urine pH Ur Specific Burkett Urine Protein Urine Glucose (UA) Urine Ketones Urine Blood Urine Nitrite Urine Bilirubin Urine Urobilinogen Ur Leukocyte Esterase Ur Culture Indicated? Person Notif of Crit Andrew Seth 12/18/18 04:58 WBC RBC Hgb Hct MCV MCH MCHC RDW Plt Count MPV Immature Gran % Seg Neutrophils % Lymphocytes % Monocytes % Eosinophils % Basophils % Neutrophils # Lymphocytes # Monocytes # Eosinophils # Basophils # VBG pH VBG pCO2 VBG pO2 VBG HCO3 Sodium Potassium Chloride Carbon Dioxide BUN Creatinine Est GFR ( Amer) Est GFR (Non-Af Amer) BUN/Creatinine Ratio Glucose POC Glucose 434 H* Calculated Osmolality Calcium Total Bilirubin AST ALT Alkaline Phosphatase Serum Total Protein Albumin Globulin Albumin/Globulin Ratio Lipase Beta-Hydroxybutyric Acd Urine Color Urine Clarity Urine pH Ur Specific Burkett Urine Protein Urine Glucose (UA) Urine Ketones Urine Blood Urine Nitrite Urine Bilirubin Urine Urobilinogen Ur Leukocyte Esterase Ur Culture Indicated? Person Notif of Crit - Lab Data Lab results reviewed: Yes I reviewed the patient's lab results. Result diagrams: 12/18/18 02:55 12/18/18 02:55 Lab Results 12/18/18 12/18/18 12/18/18 Range/Units 02:55 02:55 03:40 WBC 12.3 H (4.3-11.1) K/mcL RBC 4.76 (3.82-4.97) M/mcL Hgb 14.7 (11.5-15.4) g/dL Hct 45.5 H (35.3-44.9) % MCV 95.6 (83.0-100.0) fL MCH 30.9 (28.0-33.3) pg MCHC 32.3 (31.6-35.5) g/dL RDW 12.7 (11.5-14.5) % Plt Count 380 (140-400) K/mcL MPV 9.4 (9.4-12.4) fL Immature Gran % 0.5 (0-4) % Seg Neutrophils % 84.3 % Lymphocytes % 11.2 % Monocytes % 3.0 % Eosinophils % 0.7 % Basophils % 0.3 % Neutrophils # 10.4 H (1.6-8.9) K/mcL Lymphocytes # 1.4 (0.6-4.6) K/mcL Monocytes # 0.4 (0.0-1.3) K/mcL Eosinophils # 0.1 (0.0-0.6) K/mcL Basophils # 0.0 (0.0-0.2) K/mcL VBG pH (7.32-7.42) pH Units VBG pCO2 (41-51) mmHg VBG pO2 (25-50) mmHg VBG HCO3 (21-27) mEq/L Sodium 135 L (136-145) mEq/L Potassium 4.6 (3.5-5.1) mEq/L Chloride 103 (98-107) mEq/L Carbon Dioxide 13 L (23-29) mEq/L BUN 16 (6-20) mg/dL Creatinine 1.00 (0.60-1.20) mg/dL Est GFR ( Amer) > 60 (> 60) Est GFR (Non-Af Amer) 58 L (> 60) BUN/Creatinine Ratio 16 (6-26) Glucose 445 H (70-105) mg/dL POC Glucose (70-99) mg/dL Calculated Osmolality 300 (280-300) Calcium 8.6 (8.6-10.3) mg/dL Total Bilirubin 0.7 (0.3-1.0) mg/dL AST 12 L (13-39) Units/L ALT 16 (7-52) Units/L Alkaline Phosphatase 97 (34-104) Units/L Serum Total Protein 7.0 (6.4-8.9) g/dL Albumin 4.0 (3.5-5.7) g/dL Globulin 3.0 (2.4-3.5) g/dL Albumin/Globulin Ratio 1.3 (1.1-2.2) Lipase 5 L (11-82) Units/L Beta-Hydroxybutyric Acd (0.02-0.27) mmol/L Urine Color Yellow (Yellow) Urine Clarity Clear (Clear) Urine pH 5.5 (5.0-8.0) pH Units Ur Specific Burkett 1.030 H (1.010-1.025) Urine Protein Negative (Neg-Trace) mg/dL Urine Glucose (UA) >=1000 H (Normal) mg/dL Urine Ketones >=160 H (Negative) mg/dL Urine Blood Negative (Negative) Urine Nitrite Negative (Negative) Urine Bilirubin Negative (Negative) Urine Urobilinogen Normal (Normal) mg/dL Ur Leukocyte Esterase Negative (Negative) Ur Culture Indicated? NO (NO) Person Notif of Crit 09/16/19 09/16/19 09/16/19 Range/Units 04:16 04:43 04:56 WBC (4.3-11.1) K/mcL RBC (3.82-4.97) M/mcL Hgb (11.5-15.4) g/dL Hct (35.3-44.9) % MCV (83.0-100.0) fL MCH (28.0-33.3) pg MCHC (31.6-35.5) g/dL RDW (11.5-14.5) % Plt Count (140-400) K/mcL MPV (9.4-12.4) fL Immature Gran % (0-4) % Seg Neutrophils % % Lymphocytes % % Monocytes % % Eosinophils % % Basophils % % Neutrophils # (1.6-8.9) K/mcL Lymphocytes # (0.6-4.6) K/mcL Monocytes # (0.0-1.3) K/mcL Eosinophils # (0.0-0.6) K/mcL Basophils # (0.0-0.2) K/mcL VBG pH 7.20 L* (7.32-7.42) pH Units VBG pCO2 36 L (41-51) mmHg VBG pO2 60 H (25-50) mmHg VBG HCO3 14 L (21-27) mEq/L Sodium (136-145) mEq/L Potassium (3.5-5.1) mEq/L Chloride (98-107) mEq/L Carbon Dioxide (23-29) mEq/L BUN (6-20) mg/dL Creatinine (0.60-1.20) mg/dL Est GFR ( Amer) (> 60) Est GFR (Non-Af Amer) (> 60) BUN/Creatinine Ratio (6-26) Glucose (70-105) mg/dL POC Glucose 473 H* (70-99) mg/dL Calculated Osmolality (280-300) Calcium (8.6-10.3) mg/dL Total Bilirubin (0.3-1.0) mg/dL AST (13-39) Units/L ALT (7-52) Units/L Alkaline Phosphatase (34-104) Units/L Serum Total Protein (6.4-8.9) g/dL Albumin (3.5-5.7) g/dL Globulin (2.4-3.5) g/dL Albumin/Globulin Ratio (1.1-2.2) Lipase (11-82) Units/L Beta-Hydroxybutyric Acd > 2.00 H (0.02-0.27) mmol/L Urine Color (Yellow) Urine Clarity (Clear) Urine pH (5.0-8.0) pH Units Ur Specific Burkett (1.010-1.025) Urine Protein (Neg-Trace) mg/dL Urine Glucose (UA) (Normal) mg/dL Urine Ketones (Negative) mg/dL Urine Blood (Negative) Urine Nitrite (Negative) Urine Bilirubin (Negative) Urine Urobilinogen (Normal) mg/dL Ur Leukocyte Esterase (Negative) Ur Culture Indicated? (NO) Person Notif of Donaldo Seth 12/18/18 Range/Units 04:58 WBC (4.3-11.1) K/mcL RBC (3.82-4.97) M/mcL Hgb (11.5-15.4) g/dL Hct (35.3-44.9) % MCV (83.0-100.0) fL MCH (28.0-33.3) pg MCHC (31.6-35.5) g/dL RDW (11.5-14.5) % Plt Count (140-400) K/mcL MPV (9.4-12.4) fL Immature Gran % (0-4) % Seg Neutrophils % % Lymphocytes % % Monocytes % % Eosinophils % % Basophils % % Neutrophils # (1.6-8.9) K/mcL Lymphocytes # (0.6-4.6) K/mcL Monocytes # (0.0-1.3) K/mcL Eosinophils # (0.0-0.6) K/mcL Basophils # (0.0-0.2) K/mcL VBG pH (7.32-7.42) pH Units VBG pCO2 (41-51) mmHg VBG pO2 (25-50) mmHg VBG HCO3 (21-27) mEq/L Sodium (136-145) mEq/L Potassium (3.5-5.1) mEq/L Chloride (98-107) mEq/L Carbon Dioxide (23-29) mEq/L BUN (6-20) mg/dL Creatinine (0.60-1.20) mg/dL Est GFR ( Amer) (> 60) Est GFR (Non-Af Amer) (> 60) BUN/Creatinine Ratio (6-26) Glucose (70-105) mg/dL POC Glucose 434 H* (70-99) mg/dL Calculated Osmolality (280-300) Calcium (8.6-10.3) mg/dL Total Bilirubin (0.3-1.0) mg/dL AST (13-39) Units/L ALT (7-52) Units/L Alkaline Phosphatase (34-104) Units/L Serum Total Protein (6.4-8.9) g/dL Albumin (3.5-5.7) g/dL Globulin (2.4-3.5) g/dL Albumin/Globulin Ratio (1.1-2.2) Lipase (11-82) Units/L Beta-Hydroxybutyric Acd (0.02-0.27) mmol/L Urine Color (Yellow) Urine Clarity (Clear) Urine pH (5.0-8.0) pH Units Ur Specific Burkett (1.010-1.025) Urine Protein (Neg-Trace) mg/dL Urine Glucose (UA) (Normal) mg/dL Urine Ketones (Negative) mg/dL Urine Blood (Negative) Urine Nitrite (Negative) Urine Bilirubin (Negative) Urine Urobilinogen (Normal) mg/dL Ur Leukocyte Esterase (Negative) Ur Culture Indicated? (NO) Person Notif of Crit - Radiology Data Radiology results reviewed: Yes I reviewed the patient's radiology results. Critical Care Time Critical Care Time: Yes Total Critical Care Time: 35 Attestation: Critical care performed: Time is exclusive of separately billable procedures. Time includes: direct patient care, patient reassessment, coordination of patient care, interpretation of data (laboratory data, radiology data, and respiratory data), review of patient's medical records, medical consultation and documentation of patient care. Procedures included in critical care time: Procedures excluded from critical care time: Attestation Statement - Attestation Attestation: I, Reagan Pritchett MD, personally evaluated this patient and discussed their management with the midlevel provicer, PAC/MITER SAWYER. I reviewed the midlevel provi niru's note and agree with the documented findings, medical decision making, and plan of care. 53-year-old female with history of insulin-dependent diabetes presents to the emergency department with a complaint of nausea vomiting diarrhea and abdominal pain which started 2 days prior to arrival. Also complains of her sugar running high. She does have a prior history of DKA and states that symptoms feel similar. On examination patient is a well-developed well-nourished female in no acute distress. She is alert and oriented 3. There is no cyanosis or diaphoresis. Breath sounds are clear and equal bilaterally. Heart regular rate and rhythm. Abdomen is soft with moderate diffuse tenderness to palpation, especially in the epigastric region. Slightly increased bowel sounds. No tympany or distention. No CVA tenderness. Labs reviewed. Consistent with DKA with positive ketones and acidosis and increased anion gap of 19. Patient started on insulin infusion as well as IV potassium replacement. The hospitalist, Dr. Aguilar, was consulted and [facility]
[2018-12-18 03:54] LABS: Bilirubin,Urine Negative (Negative); Blood,Urine Negative (Negative); Clarity,Urine Clear (Clear); Color,Urine Yellow (Yellow); Glucose,Urine (UA) >=1000 mg/dL (Normal); Ketones,Urine >=160 mg/dL (Negative); Leukocyte Esterase,Urine Negative (Negative); Nitrite,Urine Negative (Negative); PH,Urine 5.5 pH Units (5.0-8.0); Protein,Urine Negative (Neg-Trace); Urobilinogen,Urine Normal (Normal)
[2018-12-18 04:53] LABS: VBG HCO3 14 mEq/L (21-27); VBG PCO2 36 mmHg (41-51); VBG PO2 60 mmHg (25-50)
[2018-12-18] MEDS ORDERED: Insulin LISPRO 300 UNITS/3 ML VIAL SQ ONE (04:54)
[2018-12-18] MEDS ORDERED: 0.9 % Sodium Chloride 1,000 ML IVC ONE ×2 (04:54→06:04)
[2018-12-18] MEDS ORDERED: 0.9 % Sodium Chloride 1,000 ML ONE (06:06)
[2018-12-18] MEDS: Insulin Human Regular 100 UNIT in 0.9 % Sodium Chloride 100 ML IVC SCH ×2 (06:11→08:15)
[2018-12-18] MEDS ORDERED: *HR* Dextrose 50 % in Water (Syg) 50 ML SYRINGE IVP PRN (06:59)
[2018-12-18] MEDS ORDERED: D5% in 0.45% NACL w KCl 20 MEQ/1,000 ML MLS IVC PRN (06:59)
[2018-12-18] MEDS ORDERED: Insulin Regular, Human 100 UNIT/ML IV PRN ×2 (06:59)
[2018-12-18] MEDS ORDERED: D5% in 0.45% NACL 1,000 ML IVC PRN (06:59)
--- NOTE | 2018-12-18 07:12 | Internal Med History&Physical ---
Date of Encounter: 12/18/18 Time of Encounter: 07:08 Internal Medicine - H&P: HPI Chief complaint: Nausea and vomiting Admitted From: Home Plans for Post Hospital Care: Home History of present illness: Ms. Reina is a 53 year old female with hx of IDDM Type I on insulin pump, PAD on Plavix, and IBS presents with n/v and found to be in DKA. Patient says that she recently has had flares of her IBS. Had a flare about a month ago that resolved. However, 12/16 patient began to feel symptoms typical of her IBS - nausea, vomiting, and diarrhea episodes with crampy abdominal pain. Having about 2-3 loose bowel movements per day. Symptoms got progressively worse last night so decided to come to the emergency department. This actually is very dehydrated. He has not vomited any blood. No melena or hematochezia. Ab dominal pain is crampy in nature and generalize. Denies dysuria, hematuria, increased urinary frequency. Slight cough she says is from allergies but denies shortness of breath. Follows with Arlene Yan CNP of [facility] for management of her insulin pump. Has been on an insulin pump since 2007 but began a new pump 6 months ago. Past Med Surg Social Fam HX - Past Medical History Medical history: DVT, diabetes, hyperlipidemia, hypertension, migraine, thyroid disease, other Additional medical history: IBS Psychiatric history: no psych history - Past Surgical History Surgical History: carotid endarterectomy, cholecystectomy, hysterectomy, other, LE stent (s) Additional surgical history: [place]. shoulder surgery, elbow surgery, subclavian bypass - Social History Smoking Status: Former smoker Smokeless Tobacco Status: No Alcohol use: none Drug use: none - Family History Mother Adopted: No Family Member Ethnicity: Non- Living Status: Hx Family Cardiac Disorders: Yes Hx Family Respiratory Disorders: Yes Hx Family Cancer: No Hx Family GI Disorders: No Hx Family Endocrine Disorder: Yes Hx Family Neuromuscular Disorders: No Hx Family Neurologic Disorders: No Hx Family HEENT Disorders: No Hx Family Autoimmune Disorders: No Father Adopted: No Family Member Ethnicity: Non- Living Status: Hx Family Cardiac Disorders: Yes Hx Family Respiratory Disorders: Yes Hx Family Cancer: Yes Hx Family GI Disorders: No Hx Family Endocrine Disorder: No Hx Family Neuromuscular Disorders: No Hx Family Neurologic Disorders: No Hx Family HEENT Disorders: No Hx Family Autoimmune Disorders: No Internal Medicine - H&P: Meds Amlodipine Besylate 2.5 mg PO DAILY 09/22/17 [History] Atorvastatin Calcium [Lipitor] 80 mg PO HS 09/22/17 [History] Clopidogrel [Plavix] 75 mg PO DAILY 09/22/17 [History] Cyclobenzaprine HCl 10 mg PO TID PRN 09/22/17 [History] Dicyclomine [Bentyl] 20 mg PO Q6H 09/22/17 [History] Estradiol 2 mg PO HS 09/22/17 [History] Famotidine [Pepcid] 40 mg PO DAILY 09/22/17 [History] Levothyroxine [Synthroid] 125 mcg PO 0630 09/22/17 [History] Subcutaneous Insulin Pump [T:Slim] 1 each MC AD 09/22/17 [History] Topiramate [Topamax] 25 mg PO BID 09/22/17 [History] Allergy/AdvReac Type Severity Reaction Status Date / Time Sulfa (Sulfonamide Allergy See Verified 11/30/18 19:09 Antibiotics) Comments gabapentin [From Neurontin] AdvReac See Verified 11/30/18 19:09 Comments hydrocodone [From Lortab] AdvReac Nausea Verified 11/30/18 19:09 metoprolol [From Lopressor] AdvReac Hypotension Verified 11/30/18 19:09 morphine AdvReac Nausea Verified 11/30/18 19:09 oxycodone [From Percocet] AdvReac Itching Verified 11/30/18 19:09 oxymorphone [From Opana] AdvReac Nausea Verified 11/30/18 19:09 Penicillins AdvReac Abdominal Verified 11/30/18 19:09 Pain Review of systems: General: Fevers / Chills / Weight loss / Night sweats Eyes: Blurry Vision / Change in Vision HENT: Ear Pain / Ear Drainage / Rhinorrhea / Throat Pain / Lymphadenopathy Cardiovascular: Chest Pain / Palpatations / Orthopnea / GARCIA / Weight gain Lungs: Dyspnea / Wheezing / Cough / Sputum production / Pleurisy Abdomen: Abdomen pain / Abdominal distention / Nausea / Vomiting / Diarrhea / Const : Dysuria / Urinary Frequency / Urinary Urgency / Hematuria Extremities: LE edema / Ext pain / Ext erythema Skin: Rashes / Abrasions / Contusions Psych: Hallucinations / Anxiety / Depression Neuro: Weakness / Numbness / Tingling / Facial Droop / Dysphagia - Constitutional Vitals: Temp Pulse Resp BP Pulse Ox 98.0 F 83 16 139/68 97 12/18/18 07:02 12/18/18 07:02 12/18/18 07:02 12/18/18 07:02 12/18/18 07:02 Exam: General: Ill-appearing and in no acute distress HEENT: No erythema of posterior pharynx. No exudates. Lymphatics: No mandibular or cervical lymphadenopathy Cardiovascular: RRR. No murmurs. No chest wall tenderness. Lungs: Clear to auscelltation bilaterally. Regular chest rise. Abdomen: Non-tender. No rebound or gaurding. Nl bowel sounds. Extremities: No edema. 2+ pulses radial and pedal pulses Skin: No rahses, abrasions, or contusions. Nl cap refill. Psych: Nl attention. A&Ox3 Neuro: immigration inspector II-XII intact. 5/5 strength. Sensation to light touch and pinprick intact. Internal Med - H&P Results - Labs CBC & Chem 7: 12/18/18 02:55 12/18/18 02:55 Labs: Short CBC 12/18/18 Range/Units 02:55 WBC 12.3 H (4.3-11.1) K/mcL Hgb 14.7 (11.5-15.4) g/dL Hct 45.5 H (35.3-44.9) % Plt Count 380 (140-400) K/mcL Neutrophils # 10.4 H (1.6-8.9) K/mcL BMP 12/18/18 02:55 Sodium 135 L Potassium 4.6 Chloride 103 Carbon Dioxide 13 L BUN 16 Creatinine 1.00 Glucose 445 H Calcium 8.6 Liver Function 12/18/18 Range/Units 02:55 Total Bilirubin 0.7 (0.3-1.0) mg/dL AST 12 L (13-39) Units/L ALT 16 (7-52) Units/L Alkaline Phosphatase 97 (34-104) Units/L Albumin 4.0 (3.5-5.7) g/dL Urine 12/18/18 Range/Units 03:40 Urine Color Yellow (Yellow) Urine Clarity Clear (Clear) Urine pH 5.5 (5.0-8.0) pH Units Ur Specific [place] 1.030 H (1.010-1.025) Urine Protein Negative (Neg-Trace) mg/dL Urine Glucose (UA) >=1000 H (Normal) mg/dL - ABG Interpretation ABG results: 12/18/18 04:43 VBG pH 7.20 L* VBG pCO2 36 L VBG pO2 60 H VBG HCO3 14 L - Assessment and Plan (1) DKA (diabetic ketoacidoses) Current Visit: Yes Status: Acute Assessment and plan: Patient with hx of IDDM Type I on insulin pump, PAD on Plavix, and IBS presents with n/v and found to be in DKA. -Patient believes DKA episode secondary to "IBS flare" Unfortunately, symptoms of DKA mimic IBS so hard to say if this is the true culprit -We will do basic infectious workup with UA and chest x-ray Crampy abdominal pain, however, no abdominal tenderness so hold off on imaging -History of PAD but no symptoms to suggest this at this time. Will obtain troponin CAD risk factor -May have been insulin pump/pod malfunction. Recommend discussing case with Deonna Yan before restarting insulin pump PLAN: - CXR, UA - Troponin - Nausea control - DKA protocol - Can eat when anion gap is closed and patient is ready We will transition to subcutaneous insulin thereafter with 1 hour overlap After stable on subcutaneous, we will transition to insulin pump after discussing with Arlene Yan. Qualifiers: Diabetes mellitus type: type 1 Diabetes mellitus complication detail: without coma Qualified Code(s): E10.10 - Type 1 diabetes mellitus with ketoacidosis without coma (2) IBS (irritable bowel syndrome) Current Visit: Yes Status: Acute Assessment and plan: Unclear if she is not a true flare of this or if the symptoms are just secondary to DKA. - Resume home Bentyl and Pepcid - Readdress this if symptoms persist despite resolution of DKA Qualifiers: Irritable bowel syndrome type: with diarrhea Qualified Code(s): K58.0 - Irritable bowel syndrome with diarrhea (3) PAD (peripheral artery disease) Current Visit: Yes Status: Acute Assessment and plan: History of multiple stents and arteries of neck and lower extremities. - Continue Plavix
[2018-12-18 07:42] LABS: Alanine Aminotransferase 12 Units/L (7-52); Albumin 3.2 g/dL (3.5-5.7); Albumin/Globulin Ratio 1.3 (1.1-2.2); Alkaline Phosphatase 77 Units/L (34-104); Aspartate Amino Transferase 9 Units/L (13-39); BUN/Creatinine Ratio 18 (6-26); Bilirubin,Total 0.4 mg/dL (0.3-1.0); Blood Urea Nitrogen 16 mg/dL (6-20); Calcium 7.4 mg/dL (8.6-10.3); Carbon Dioxide 12 mEq/L (23-29); Chloride 112 mEq/L (98-107); Globulin 2.4 g/dL (2.4-3.5); Glucose 209 mg/dL (70-105); Osmolality,Calculated 293 (280-300); Potassium 3.8 mEq/L (3.5-5.1); Sodium 138 mEq/L (136-145); Total Protein 5.6 g/dL (6.4-8.9); eGFR For African Americans > 60 (> 60); eGFR For Non-African Americans > 60 (> 60)
[2018-12-18 07:52] LABS: VBG HCO3 11 mEq/L (21-27); VBG PCO2 28 mmHg (41-51); VBG PH 7.21 pH Units (7.32-7.42); VBG PO2 196 mmHg (25-50)
[2018-12-18] MEDS ORDERED: Naloxone 0.4 MG/ML INJ IVP PRN (07:55)
[2018-12-18] MEDS ORDERED: *HR* Promethazine 25 MG/ML VIAL IVP PRN (07:55)
[2018-12-18] MEDS ORDERED: Ondansetron ODT 4 MG TAB.RAPDIS SL PRN (07:55)
[2018-12-18] MEDS: Topiramate 25 MG TABLET PO SCH ×2 (08:25→21:16)
[2018-12-18] MEDS: Famotidine 20 MG TABLET PO SCH (08:25)
[2018-12-18] MEDS: amLODIPine 5 MG TABLET PO SCH (08:26)
[2018-12-18 10:24] LABS: BUN/Creatinine Ratio 18 (6-26); Blood Urea Nitrogen 15 mg/dL (6-20); Calcium 7.6 mg/dL (8.6-10.3); Carbon Dioxide 18 mEq/L (23-29); Chloride 113 mEq/L (98-107); Glucose 77 mg/dL (70-105); Magnesium 1.6 mg/dL (1.6-2.6); Osmolality,Calculated 292 (280-300); Potassium 3.9 mEq/L (3.5-5.1); Sodium 141 mEq/L (136-145); Troponin I < 0.03 ng/mL (< 0.04); eGFR For African Americans > 60 (> 60); eGFR For Non-African Americans > 60 (> 60)
[2018-12-18] MEDS ORDERED: Insulin DETEMIR 100 UNIT/ML X5UNITS SQ ONE (11:04)
[2018-12-18] MEDS: Insulin LISPRO 300 UNITS/3 ML VIAL SQ SCH ×2 (11:21→16:32)
[2018-12-18] MEDS: *HR* Enoxaparin 40 MG/0.4 ML SYRINGE SQ SCH (11:39)
[2018-12-18 14:52] LABS: BUN/Creatinine Ratio 18 (6-26); Blood Urea Nitrogen 13 mg/dL (6-20); Calcium 7.6 mg/dL (8.6-10.3); Carbon Dioxide 19 mEq/L (23-29); Chloride 110 mEq/L (98-107); Glucose 238 mg/dL (70-105); Osmolality,Calculated 290 (280-300); Potassium 4.3 mEq/L (3.5-5.1); Sodium 136 mEq/L (136-145); eGFR For African Americans > 60 (> 60); eGFR For Non-African Americans > 60 (> 60)
[2018-12-18] MEDS ORDERED: Insulin LISPRO 300 UNITS/3 ML VIAL SQ SCH (21:00)
--- NOTE | 2018-12-18 21:23 | Event Note ---
Date of Encounter: 12/18/18 Time of Encounter: 21:18 Called patient's endo provider Arlene Yan CNP and a staff member of hers came over to assess insulin pump. Unclear if there were any issues regarding the pump or not - no notes left in the chart. Will re-start patient on insulin pump with close monitoring overnight. If stable cbgs patient can likely d/c in the morning provided she is eating and n/v/diarrhea has resolved. Recommend hospitalist who takes over care tomorrow reach out again to Arlene Yan and ensure there weren't any issues with the pump.
[2018-12-19 05:12] LABS: Basophils % 0.4 %; Eosinophils # 0.3 K/mcL (0.0-0.6); Eosinophils % 2.6 %; Hematocrit 38.8 % (35.3-44.9); Hemoglobin 13.2 g/dL (11.5-15.4); Immature Granulocytes % 0.3 % (0-4); Lymphocytes # 2.5 K/mcL (0.6-4.6); Lymphocytes % 24.9 %; Mean Corpuscular Hemoglobin 31.1 pg (28.0-33.3); Mean Corpuscular Volume 91.5 fL (83.0-100.0); Monocytes # 0.5 K/mcL (0.0-1.3); Monocytes % 4.8 %; Neutrophils # 6.9 K/mcL (1.6-8.9); Platelet Count 319 K/mcL (140-400); Red Blood Count 4.24 M/mcL (3.82-4.97); Red Cell Distribution Width 12.7 % (11.5-14.5); White Blood Count 10.2 K/mcL (4.3-11.1)
[2018-12-19 05:32] LABS: BUN/Creatinine Ratio 12 (6-26); Blood Urea Nitrogen 9 mg/dL (6-20); Calcium 8.3 mg/dL (8.6-10.3); Carbon Dioxide 17 mEq/L (23-29); Chloride 111 mEq/L (98-107); Glucose 174 mg/dL (70-105); Osmolality,Calculated 289 (280-300); Potassium 4.1 mEq/L (3.5-5.1); Sodium 138 mEq/L (136-145); eGFR For African Americans > 60 (> 60); eGFR For Non-African Americans > 60 (> 60)
[2018-12-19] MEDS ORDERED: *HR* Enoxaparin 40 MG/0.4 ML SYRINGE SQ SCH (06:00)
[2018-12-19] MEDS: *HR* Enoxaparin 40 MG/0.4 ML SYRINGE SQ SCH (06:00)
[2018-12-19] MEDS: Insulin Human Regular 100 UNIT in 0.9 % Sodium Chloride 100 ML IVC SCH ×2 (08:12)
[2018-12-19] MEDS: Insulin LISPRO 300 UNITS/3 ML VIAL SQ SCH ×2 (08:13→16:04)
[2018-12-19] MEDS: Topiramate 25 MG TABLET PO SCH ×2 (08:15→20:03)
[2018-12-19] MEDS: amLODIPine 5 MG TABLET PO SCH (08:15)
[2018-12-19] MEDS: Famotidine 20 MG TABLET PO SCH ×2 (08:15→20:03)
[2018-12-19] MEDS ORDERED: NON-FORMULARY MEDICATION 1 EACH EACH (Subcutaneous Insulin Pump [T:Slim] 1 EACH) MC SCH (08:30)
[2018-12-19] MEDS ORDERED: Famotidine 20 MG TABLET PO SCH (09:00)
[2018-12-19] MEDS ORDERED: 0.9 % Sodium Chloride 1,000 ML IV ONE (10:54)
[2018-12-19] MEDS ORDERED: INSULIN PUMP SQ SCH (11:15)
[2018-12-19] MEDS ORDERED: 0.9 % Sodium Chloride 1,000 ML IVC SCH (13:00)
--- NOTE | 2018-12-19 14:09 | Internal Med Progress Note ---
Hospitalist Progress Note - Encounter Date of Encounter: 12/19/18 Time of Encounter: 14:05 - Subjective Interval History: Patient seen and examined. No acute events overnight. This morning blood sugars improved to 200s. Patient states this is her baseline. After stopping insulin drip and patient started her insulin pump, blood sugars back up to 400s. En docrinologist contacted and reportedly have come by and stated that the pump is functioning adequately. - Exam Vitals: Temp Pulse Resp BP Pulse Ox 97.6 F 63 18 136/75 96 12/19/18 11:15 12/19/18 11:15 12/19/18 11:15 12/19/18 11:15 12/19/18 11:15 Exam: General: Ill-appearing and in no acute distress HEENT: No erythema of posterior pharynx. No exudates. Lymphatics: No mandibular or cervical lymphadenopathy Cardiovascular: RRR. No murmurs. No chest wall tenderness. Lungs: Clear to auscelltation bilaterally. Regular chest rise. Abdomen: Non-tender. No rebound or gaurding. Nl bowel sounds. Extremities: No edema. 2+ pulses radial and pedal pulses Skin: No rahses, abrasions, or contusions. Nl cap refill. Psych: Nl attention. A&Ox3 Neuro: sports physiotherapist II-XII intact. 5/5 strength. Sensation to light touch and pinprick intact. - Assessment and Plan (1) DKA (diabetic ketoacidoses) Current Visit: Yes Status: Acute Assessment and Plan: Patient with hx of IDDM Type I on insulin pump, PAD on Plavix, and IBS presents with n/v and found to be in DKA. -Patient's refuse and recycling worker reportedly sent someone from office and pump working -After insulin drip stopped, patient's insulin pump started, blood sugars back up to 400s PLAN: - 15 units levemir qHs - Continue patient's insulin pump: nurses attempting to contact refuse and recycling worker to confirm insulin pump is functioning - Monitor blood sugars closely (2) IBS (irritable bowel syndrome) Current Visit: Yes Status: Acute Assessment and Plan: Unclear if she is not a true flare of this or if the symptoms are just secondary to DKA. - Resume home Bentyl and Pepcid - Readdress this if symptoms persist despite resolution of DKA (3) PAD (peripheral artery disease) Current Visit: Yes Status: Acute Assessment and Plan: History of multiple stents and arteries of neck and lower extremities. - Continue Plavix - Time Spent with Patient Total time spent is greater than 50% in coordination of care (as documented) at patient's floor/unit and/or counseling patient: 35 minutes Plan of Care Discussed with: patient Internal Medicine: Result - Labs CBC & Chem 7: 12/19/18 04:47 12/19/18 04:47 Labs: Short CBC 12/19/18 Range/Units 04:47 WBC 10.2 (4.3-11.1) K/mcL Hgb 13.2 D (11.5-15.4) g/dL Hct 38.8 (35.3-44.9) % Plt Count 319 (140-400) K/mcL Neutrophils # 6.9 (1.6-8.9) K/mcL BMP 12/18/18 12/19/18 14:11 04:47 Sodium 136 138 Potassium 4.3 4.1 Chloride 110 H 111 H Carbon Dioxide 19 L 17 L BUN 13 9 Creatinine 0.74 0.77 Glucose 238 H 174 H Calcium 7.6 L 8.3 L Consult Discharge Plan - Plan Referrals: Betito Staley MD [Primary Care Provider] - 12/22/18 1:15 pm Arlene Yan SPRINKLING SYSTEM IRRIGATOR [Advanced Practice Nurse] - (1) DKA (diabetic ketoacidoses) Qualifiers: Diabetes mellitus type: type 1 Diabetes mellitus complication detail: without coma Qualified Code(s): E10.10 - Type 1 diabetes mellitus with ketoacidosis without coma (2) IBS (irritable bowel syndrome) Qualifiers: Irritable bowel syndrome type: with diarrhea Qualified Code(s): K58.0 - Irritable bowel syndrome with diarrhea
[2018-12-19] MEDS: Insulin DETEMIR 100 UNIT/ML X5UNITS SQ SCH (14:31)
[2018-12-19] MEDS ORDERED: Insulin LISPRO 300 UNITS/3 ML VIAL SQ SCH (21:00)
[2018-12-20] MEDS: *HR* Enoxaparin 40 MG/0.4 ML SYRINGE SQ SCH (06:10)
[2018-12-20] MEDS: amLODIPine 5 MG TABLET PO SCH (08:53)
[2018-12-20] MEDS: Topiramate 25 MG TABLET PO SCH (08:53)
[2018-12-20] MEDS: Famotidine 20 MG TABLET PO SCH (08:53)
[2018-12-20] MEDS: Insulin LISPRO 300 UNITS/3 ML VIAL SQ SCH ×3 (08:54→16:36)
[2018-12-20 09:08] LABS: VBG HCO3 23 mEq/L (21-27); VBG PCO2 34 mmHg (41-51); VBG PH 7.44 pH Units (7.32-7.42); VBG PO2 162 mmHg (25-50)
[2018-12-20 09:10] LABS: Hematocrit 39.4 % (35.3-44.9); Hemoglobin 13.2 g/dL (11.5-15.4); Mean Corpuscular HGB Conc 33.5 g/dL (31.6-35.5); Mean Corpuscular Hemoglobin 30.7 pg (28.0-33.3); Mean Corpuscular Volume 91.6 fL (83.0-100.0); Mean Platelet Volume 9.3 fL (9.4-12.4); Platelet Count 305 K/mcL (140-400); Red Cell Distribution Width 12.7 % (11.5-14.5); White Blood Count 9.9 K/mcL (4.3-11.1)
[2018-12-20 09:26] LABS: BUN/Creatinine Ratio 21 (6-26); Blood Urea Nitrogen 16 mg/dL (6-20); Calcium 8.6 mg/dL (8.6-10.3); Carbon Dioxide 26 mEq/L (23-29); Chloride 105 mEq/L (98-107); Glucose 300 mg/dL (70-105); Magnesium 1.8 mg/dL (1.6-2.6); Osmolality,Calculated 298 (280-300); Potassium 4.1 mEq/L (3.5-5.1); Sodium 138 mEq/L (136-145); eGFR For African Americans > 60 (> 60); eGFR For Non-African Americans > 60 (> 60)
[2018-12-20 11:20] VITALS: BP 129/76
[2018-12-20] MEDS: Insulin DETEMIR 100 UNIT/ML X5UNITS SQ SCH (11:23)
[2018-12-20 11:56] LABS: Bilirubin,Urine Negative (Negative); Blood,Urine Negative (Negative); Clarity,Urine Clear (Clear); Color,Urine Yellow (Yellow); Glucose,Urine (UA) >=1000 mg/dL (Normal); Ketones,Urine Negative (Negative); Leukocyte Esterase,Urine Negative (Negative); Nitrite,Urine Negative (Negative); Protein,Urine Negative (Neg-Trace); Specific Gravity,Urine 1.019 (1.010-1.025); Urobilinogen,Urine Normal (Normal)
--- NOTE | 2018-12-20 12:36 | Discharge Summary ---
- NOTES TO OUTPATIENT PROVIDER Notes to Outpatient Provider: DKA 2/2 pump malfunction, converting to basal/bolus Date of Encounter: 12/20/18 Time of Encounter: 12:35 - Discharge Diagnosis (1) DKA (diabetic ketoacidoses) Priority: Primary Status: Acute Qualifiers: Diabetes mellitus type: type 1 Diabetes mellitus complication detail: without coma Qualified Code(s): E10.10 - Type 1 diabetes mellitus with ketoacidosis without coma Hospital course: Dear Doctors, I recently had the opportunity to care for this patient during their recent hospital stay at [facility]. Chaya Reina is a 53 F w hx DM1, PAD, IBS, who p/w N/V and hyperglycemia, found to have ketonuria and VBG pH 7.2 concerning for DKA. She was given fluids, started on insulin gtt, and admitted. In the hospital, her sugars improved rapidly and acidosis corrected. However, her sugars were quite labile. She was quickly transitioned back to insulin pump with sugar that soared from <100 to >500 in a few hours. Attempts to troubleshoot insulin pump were unsuccessful including changing position. She was transitioned to basal/bolus insulin with better control of her sugars, and although they remained somewhat labile on day of discharge, she does have sensation of hypoglycemia and was no longer acidotic a nd without ketones in urine. Will have close PCP and Endo follow up, and instructed to check sugars frequently. Dx: DKA Pertinent tests/consults: none Follow up: PCP 1 week, Endo 1 week Tests pending: none Med changes: - d/c insulin pump - new Lantus 15 qhs - new humalog low sliding scale - decrease bentyl dose from 20 qid to 10 qid Mental status: awake, fully oriented Code status: Full code Time spent on discharge: 35 minutes It has been my pleasure participating in this patient's care. Please contact me with any questions or concerns regarding their hospital stay. Sincerely, Shiva Hunt MD - Discharge Medications Prescriptions: New Insulin LISPRO [HumaLOG] 0 units SQ TIDAC #1 vial Pen Needle, Diabetic [1St Tier Unifine Pentips] 1 each HS #100 dis.needle Insulin Glargine,Hum.rec.anlog [Lantus Solostar] 15 unit SQ HS #5 insuln.pen Continued Amlodipine Besylate 2.5 mg PO DAILY Atorvastatin Calcium [Lipitor] 80 mg PO HS Clopidogrel [Plavix] 75 mg PO DAILY Cyclobenzaprine HCl 10 mg PO TID PRN PRN Reason: Muscle Spasm Estradiol 2 mg PO HS Levothyroxine [Synthroid] 125 mcg PO 0630 Topiramate [Topamax] 25 mg PO BID Amitriptyline [Elavil] 25 mg PO DAILY Oxybutynin [Ditropan] 5 mg PO DAILY Pantoprazole Sodium [Protonix] 40 mg PO DAILY Ranitidine HCl [Acid Operations Intern] 150 mg PO BID Changed Dicyclomine [Bentyl] 10 mg PO Q6H #0 Discontinued Subcutaneous Insulin Pump [T:Slim] 1 each AD Home Medications: Amlodipine Besylate 2.5 mg PO DAILY 09/22/17 [History] Atorvastatin Calcium [Lipitor] 80 mg PO HS 09/22/17 [History] Clopidogrel [Plavix] 75 mg PO DAILY 09/22/17 [History] Cyclobenzaprine HCl 10 mg PO TID PRN 09/22/17 [History] Estradiol 2 mg PO HS 09/22/17 [History] Levothyroxine [Synthroid] 125 mcg PO 0630 09/22/17 [History] Topiramate [Topamax] 25 mg PO BID 09/22/17 [History] Amitriptyline [Elavil] 25 mg PO DAILY 12/18/18 [History] Oxybutynin [Ditropan] 5 mg PO DAILY 12/18/18 [History] Pantoprazole Sodium [Protonix] 40 mg PO DAILY 12/18/18 [History] Ranitidine HCl [Acid Operations Intern] 150 mg PO BID 12/18/18 [History] Dicyclomine [Bentyl] 10 mg PO Q6H #0 12/20/18 [Rx] Insulin Glargine,Hum.rec.anlog [Lantus Solostar] 15 unit SQ HS #5 insuln.pen 12/20/18 [Rx] Insulin LISPRO [HumaLOG] 0 units SQ TIDAC #1 vial 12/20/18 [Rx] Pen Needle, Diabetic [1St Tier Unifine Pentips] 1 each HS #100 dis.needle 12/20/18 [Rx] Allergies/Adverse Reactions: Allergy/AdvReac Type Severity Reaction Status Date / Time Sulfa (Sulfonamide Allergy See Verified 12/18/18 09:55 Antibiotics) Comments gabapentin [From Neurontin] AdvReac See Verified 12/18/18 09:55 Comments hydrocodone [From Lortab] AdvReac Nausea Verified 12/18/18 09:55 metoprolol [From Lopressor] AdvReac Hypotension Verified 12/18/18 09:55 morphine AdvReac Nausea Verified 12/18/18 09:55 oxycodone [From Percocet] AdvReac Itching Verified 12/18/18 09:55 oxymorphone [From Opana] AdvReac Nausea Verified 12/18/18 09:55 Penicillins AdvReac Abdominal Verified 12/18/18 09:55 Pain Date of admission: 12/18/18 06:08 Primary care physician: Betito Staley MD - Constitutional Vitals: Temp Pulse Resp BP Pulse Ox 98.4 F 68 16 129/76 97 12/20/18 11:16 12/20/18 11:39 12/20/18 11:16 12/20/18 11:16 12/20/18 07:43 Exam: General: chronically ill-appearing and in no acute distress Cardiovascular: RRR. No murmurs. No chest wall tenderness. Lungs: Clear to auscultation bilaterally. Regular chest rise. Abdomen: soft, non-tender. Extremities: No edema. 2+ pulses radial and pedal pulses Skin: No rahses, abrasions, or contusions. Psych: Good memory and attention. A&Ox3 Neuro: carpenter supervisor wooden ship II-XII intact. 5/5 strength. Speech fluent. - Patient Status Disposition: Home, Self-Care Condition: Fair Functional capacity at discharge: independent ambulation Overall status at discharge: patient is back to baseline - Discharge Instructions Follow Up With: Betito Staley MD [Primary Care Provider] - 12/22/18 1:15 pm Arlene Yan CNP [Advanced Practice Nurse] - - Diet and Activity Activity: resume usual activities as tolerated Diet: diabetic diet
[2018-12-20] MEDS ORDERED: FLU Vac QV 19-20 (6Month+)/PF 0.5 ML SYRINGE IM ONE (16:08)
== END 2018-12-20 16:45 | disposition home or self-care (01) ==
LOC: EMEROOARM 02:40 → 2NNU 02:40 → SUATTDRO 06:08 → 2NNU 06:43
PROVIDERS: ADMIT Internal Medicine; ATTEND Internal Medicine

== ENCOUNTER 2019-03-28 18:47 | Observation (INO) ==
[2019-03-28] MEDS ORDERED: 0.9 % Sodium Chloride 1,000 ML IVC ONE ×2 (19:02→19:49)
[2019-03-28] MEDS ORDERED: *HR* HYDROmorphone (PF) 1 MG/ML SYRINGE IVP ONE (19:06)
[2019-03-28] MEDS ORDERED: Ondansetron 4 MG/2 ML VIAL IVP ONE (19:06)
[2019-03-28 19:18] LABS: Bilirubin,Urine Negative (Negative); Blood,Urine Negative (Negative); Clarity,Urine Clear (Clear); Color,Urine Yellow (Yellow); Glucose,Urine (UA) >=1000 mg/dL (Normal); Ketones,Urine Trace mg/dL (Negative); Leukocyte Esterase,Urine Negative (Negative); Nitrite,Urine Negative (Negative); PH,Urine 6.5 pH Units (5.0-8.0); Protein,Urine Negative (Neg-Trace); Specific Gravity,Urine 1.013 (1.010-1.025); Urobilinogen,Urine Normal (Normal)
[2019-03-28 19:21] LABS: VBG HCO3 27 mEq/L (21-27); VBG PCO2 38 mmHg (41-51); VBG PH 7.45 pH Units (7.32-7.42); VBG PO2 44 mmHg (25-50)
[2019-03-28 19:23] LABS: Basophils # 0.1 K/mcL (0.0-0.2); Basophils % 0.6 %; Eosinophils # 0.3 K/mcL (0.0-0.6); Eosinophils % 3.8 %; Hemoglobin 14.9 g/dL (11.5-15.4); Immature Granulocytes % 0.2 % (0-4); Lymphocytes # 3.4 K/mcL (0.6-4.6); Lymphocytes % 39.5 %; Mean Corpuscular HGB Conc 34.7 g/dL (31.6-35.5); Mean Corpuscular Hemoglobin 29.6 pg (28.0-33.3); Mean Corpuscular Volume 85.5 fL (83.0-100.0); Mean Platelet Volume 9.4 fL (9.4-12.4); Monocytes # 0.5 K/mcL (0.0-1.3); Monocytes % 5.9 %; Neutrophils # 4.3 K/mcL (1.6-8.9); Platelet Count 365 K/mcL (140-400); Red Blood Count 5.03 M/mcL (3.82-4.97); Red Cell Distribution Width 13.2 % (11.5-14.5); White Blood Count 8.5 K/mcL (4.3-11.1)
[2019-03-28 19:46] LABS: Alanine Aminotransferase 20 Units/L (7-52); Albumin/Globulin Ratio 1.4 (1.1-2.2); Alkaline Phosphatase 92 Units/L (34-104); Aspartate Amino Transferase 12 Units/L (13-39); BUN/Creatinine Ratio 18 (6-26); Bilirubin,Indirect 0.6 mg/dL (0.0-1.0); Bilirubin,Total 0.6 mg/dL (0.3-1.0); Blood Urea Nitrogen 16 mg/dL (6-20); Calcium 9.4 mg/dL (8.6-10.3); Carbon Dioxide 26 mEq/L (23-29); Chloride 99 mEq/L (98-107); Globulin 2.8 g/dL (2.4-3.5); Glucose 378 mg/dL (70-105); Lipase 13 Units/L (11-82); Osmolality,Calculated 295 (280-300); Potassium 3.9 mEq/L (3.5-5.1); Sodium 134 mEq/L (136-145); Total Protein 6.8 g/dL (6.4-8.9); eGFR For African Americans > 60 (> 60); eGFR For Non-African Americans > 60 (> 60)
[2019-03-28] MEDS ORDERED: Insulin Human Regular 10 UNIT in 0.9 % Sodium Chloride 10 ML IV ONE (19:48)
[2019-03-28] MEDS ORDERED: Ondansetron 4 MG/2 ML VIAL IVP PRN (21:23)
[2019-03-28] MEDS ORDERED: Naloxone 0.4 MG/ML INJ IVP PRN (21:23)
[2019-03-28] MEDS ORDERED: Dextrose Gel 15 GM/37.5 ML TUBE PO PRN ×2 (21:24)
[2019-03-28] MEDS ORDERED: D5% in Water 1,000 ML IVC PRN (21:24)
[2019-03-28] MEDS ORDERED: *HR* Dextrose 50 % in Water (Syg) 50 ML SYRINGE IVP PRN (21:24)
[2019-03-28] MEDS ORDERED: Insulin DETEMIR 100 UNIT/ML X5UNITS SQ SCH (21:30)
[2019-03-28] MEDS ORDERED: 0.9 % Sodium Chloride 1,000 ML IVC SCH ×2 (21:30)
[2019-03-28] MEDS ORDERED: Insulin DETEMIR 100 UNIT/ML X5UNITS SQ ONE (22:20)
[2019-03-28] MEDS: *HR* Heparin 5,000 UNIT/ML VIAL SQ SCH (22:34)
[2019-03-28] MEDS ORDERED: Ketorolac 15 MG/ML VIAL IVP PRN (23:22)
[2019-03-29] MEDS: Insulin LISPRO 300 UNITS/3 ML VIAL SQ SCH ×8 (00:02→23:31)
[2019-03-29 05:02] LABS: Hematocrit 39.6 % (35.3-44.9); Mean Corpuscular HGB Conc 32.6 g/dL (31.6-35.5); Mean Corpuscular Hemoglobin 29.7 pg (28.0-33.3); Mean Platelet Volume 9.5 fL (9.4-12.4); Platelet Count 289 K/mcL (140-400); Red Blood Count 4.35 M/mcL (3.82-4.97); Red Cell Distribution Width 13.3 % (11.5-14.5); White Blood Count 7.4 K/mcL (4.3-11.1)
[2019-03-29 05:15] LABS: Hemoglobin 12.9 g/dL (11.5-15.4)
[2019-03-29 05:18] LABS: BUN/Creatinine Ratio 22 (6-26); Blood Urea Nitrogen 14 mg/dL (6-20); Calcium 8.1 mg/dL (8.6-10.3); Carbon Dioxide 25 mEq/L (23-29); Chloride 112 mEq/L (98-107); Glucose 64 mg/dL (70-105); Osmolality,Calculated 289 (280-300); Potassium 3.8 mEq/L (3.5-5.1); Sodium 140 mEq/L (136-145); eGFR For African Americans > 60 (> 60); eGFR For Non-African Americans > 60 (> 60)
[2019-03-29] MEDS: *HR* Heparin 5,000 UNIT/ML VIAL SQ SCH ×3 (05:50→20:18)
[2019-03-29] MEDS ORDERED: D5% in 0.45% NACL 1,000 ML IVC SCH (06:30)
[2019-03-29] MEDS: Topiramate 25 MG TABLET PO SCH ×2 (08:08→20:18)
[2019-03-29] MEDS: amLODIPine 5 MG TABLET PO SCH (08:08)
[2019-03-29] MEDS: Famotidine 20 MG TABLET PO SCH ×2 (08:08→20:18)
[2019-03-29] MEDS: Hyoscyamine SL 0.125 MG TAB.SUBL SL SCH ×3 (08:09→20:18)
[2019-03-29] MEDS ORDERED: Insulin LISPRO 300 UNITS/3 ML VIAL SQ ONE (11:00)
[2019-03-29] MEDS ORDERED: Insulin DETEMIR 100 UNIT/ML X5UNITS SQ SCH (21:00)
[2019-03-29] MEDS ORDERED: DIABETIC MC SCH (21:00)
[2019-03-29] MEDS ORDERED: [UNRECOGNIZED DRUG - OTHER] MC SCH (21:00)
[2019-03-30] MEDS: Insulin LISPRO 300 UNITS/3 ML VIAL SQ SCH ×2 (04:14→09:33)
[2019-03-30] MEDS: *HR* Heparin 5,000 UNIT/ML VIAL SQ SCH (05:39)
[2019-03-30 06:42] VITALS: BP 130/68
[2019-03-30] MEDS: Hyoscyamine SL 0.125 MG TAB.SUBL SL SCH (09:30)
[2019-03-30] MEDS: amLODIPine 5 MG TABLET PO SCH (09:30)
[2019-03-30] MEDS: Famotidine 20 MG TABLET PO SCH (09:30)
[2019-03-30] MEDS: Topiramate 25 MG TABLET PO SCH (09:31)
== END 2019-03-30 11:33 | disposition home or self-care (01) ==
LOC: 3ANU 18:47 → EMEROOARM 18:47 → SUATTDRO 21:30 → 3ANU 21:57
PROVIDERS: ADMIT Internal Medicine; ATTEND Internal Medicine

== ENCOUNTER 2019-04-07 12:19 | Observation (INO) ==
[2019-04-07] MEDS ORDERED: 0.9 % Sodium Chloride 1,000 ML IV ONE ×2 (13:13→14:11)
[2019-04-07] MEDS ORDERED: Ondansetron 4 MG/2 ML VIAL IVP ONE (13:13)
[2019-04-07] MEDS ORDERED: Morphine Sulfate 2 MG/ML SYRINGE IVP ONE ×2 (13:14→16:33)
[2019-04-07 13:59] LABS: Bilirubin,Urine Small (Negative); Blood,Urine Negative (Negative); Clarity,Urine Clear (Clear); Color,Urine Yellow (Yellow); Glucose,Urine (UA) >=1000 mg/dL (Normal); Ketones,Urine >=160 mg/dL (Negative); Leukocyte Esterase,Urine Negative (Negative); Nitrite,Urine Negative (Negative); PH,Urine 5.5 pH Units (5.0-8.0); Protein,Urine Trace mg/dL (Neg-Trace); Specific Gravity,Urine 1.028 (1.010-1.025); Urobilinogen,Urine Normal (Normal)
[2019-04-07 14:06] LABS: Basophils # 0.1 K/mcL (0.0-0.2); Basophils % 0.5 %; Eosinophils # 0.1 K/mcL (0.0-0.6); Eosinophils % 1.1 %; Hemoglobin 14.7 g/dL (11.5-15.4); Immature Granulocytes % 0.5 % (0-4); Lymphocytes # 1.5 K/mcL (0.6-4.6); Lymphocytes % 12.4 %; Mean Corpuscular HGB Conc 33.4 g/dL (31.6-35.5); Mean Corpuscular Hemoglobin 29.6 pg (28.0-33.3); Mean Corpuscular Volume 88.5 fL (83.0-100.0); Monocytes # 0.5 K/mcL (0.0-1.3); Monocytes % 4.3 %; Neutrophils # 9.9 K/mcL (1.6-8.9); Platelet Count 395 K/mcL (140-400); Red Blood Count 4.97 M/mcL (3.82-4.97); Red Cell Distribution Width 13.6 % (11.5-14.5); Segmented Neutrophils % 81.2 %; White Blood Count 12.2 K/mcL (4.3-11.1)
[2019-04-07 14:23] LABS: Alanine Aminotransferase 21 Units/L (7-52); Albumin 3.9 g/dL (3.5-5.7); Albumin/Globulin Ratio 1.3 (1.1-2.2); Alkaline Phosphatase 113 Units/L (34-104); Aspartate Amino Transferase 15 Units/L (13-39); BUN/Creatinine Ratio 22 (6-26); Bilirubin,Direct 0.1 mg/dL (0.0-0.2); Bilirubin,Indirect 0.7 mg/dL (0.0-1.0); Bilirubin,Total 0.8 mg/dL (0.3-1.0); Blood Urea Nitrogen 18 mg/dL (6-20); Carbon Dioxide 15 mEq/L (23-29); Chloride 105 mEq/L (98-107); Glucose 248 mg/dL (70-105); Lipase 3 Units/L (11-82); Osmolality,Calculated 288 (280-300); Potassium 4.3 mEq/L (3.5-5.1); Sodium 134 mEq/L (136-145); Total Protein 6.9 g/dL (6.4-8.9); Troponin I < 0.03 ng/mL (< 0.04); eGFR For African Americans > 60 (> 60); eGFR For Non-African Americans > 60 (> 60)
[2019-04-07 14:49] LABS: VBG HCO3 19 mEq/L (21-27); VBG PCO2 36 mmHg (41-51); VBG PH 7.33 pH Units (7.32-7.42); VBG PO2 233 mmHg (25-50)
[2019-04-07] MEDS ORDERED: Isovue-370 500 ML BOTTLE IVP ONE (16:05)
[2019-04-07] MEDS ORDERED: *HR* Promethazine 25 MG/ML VIAL IVP PRN (17:18)
[2019-04-07] MEDS ORDERED: Ringers Solution, Lactated 1,000 ML IVC ONE (18:11)
[2019-04-07] MEDS ORDERED: Cyanocobalamin (B-12) 1,000 MCG/ML VIAL IM SCH (18:15)
[2019-04-07] MEDS: Ringers Solution, Lactated 1,000 ML IVC ONE (18:24)
[2019-04-07] MEDS: Ondansetron ODT 4 MG TAB.RAPDIS SL PRN (19:35)
[2019-04-07] MEDS: *HR* OxyCODONE Immed Rel 5 MG TABLET PO PRN (21:33)
[2019-04-07] MEDS: Famotidine 20 MG TABLET PO SCH (21:33)
[2019-04-07] MEDS: Topiramate 25 MG TABLET PO SCH (21:33)
[2019-04-07] MEDS: Diclofenac Sodium (DR) 75 MG TABLET.DR PO SCH (21:39)
[2019-04-07] MEDS ORDERED: Prochlorperazine 10 MG/2 ML VIAL IVP PRN (22:36)
[2019-04-07] MEDS ORDERED: Scopolamine Patch 1.5 MG PATCH.TD72 TD ONE (23:33)
[2019-04-08 01:56] LABS: BUN/Creatinine Ratio 16 (6-26); Blood Urea Nitrogen 15 mg/dL (6-20); Calcium 8.4 mg/dL (8.6-10.3); Carbon Dioxide 8 mEq/L (23-29); Chloride 102 mEq/L (98-107); Glucose 577 mg/dL (70-105); Osmolality,Calculated 303 (280-300); Potassium 5.8 mEq/L (3.5-5.1); Sodium 133 mEq/L (136-145); eGFR For African Americans > 60 (> 60); eGFR For Non-African Americans > 60 (> 60)
[2019-04-08] MEDS ORDERED: Dextrose Gel 15 GM/37.5 ML TUBE PO PRN ×2 (01:59→02:00)
[2019-04-08] MEDS ORDERED: D5% in Water 1,000 ML IVC PRN (02:00)
[2019-04-08] MEDS ORDERED: *HR* Dextrose 50 % in Water (Syg) 50 ML SYRINGE IVP PRN (02:00)
[2019-04-08] MEDS ORDERED: Insulin DETEMIR 100 UNIT/ML X5UNITS SQ ONE (02:07)
[2019-04-08] MEDS: Insulin LISPRO 300 UNITS/3 ML VIAL SQ SCH ×5 (02:14→20:23)
[2019-04-08] MEDS ORDERED: Insulin Human Regular 10 UNIT in 0.9 % Sodium Chloride 10 ML IV ONE (03:46)
[2019-04-08 05:48] LABS: Hematocrit 44.9 % (35.3-44.9); Hemoglobin 13.8 g/dL (11.5-15.4); Mean Corpuscular HGB Conc 30.7 g/dL (31.6-35.5); Mean Corpuscular Hemoglobin 29.3 pg (28.0-33.3); Mean Corpuscular Volume 95.3 fL (83.0-100.0); Mean Platelet Volume 10.1 fL (9.4-12.4); Platelet Count 458 K/mcL (140-400); Red Blood Count 4.71 M/mcL (3.82-4.97); Red Cell Distribution Width 13.7 % (11.5-14.5); White Blood Count 24.2 K/mcL (4.3-11.1)
[2019-04-08 06:14] LABS: BUN/Creatinine Ratio 17 (6-26); Blood Urea Nitrogen 18 mg/dL (6-20); Calcium 8.8 mg/dL (8.6-10.3); Carbon Dioxide 6 mEq/L (23-29); Chloride 104 mEq/L (98-107); Glucose 408 mg/dL (70-105); Magnesium 1.9 mg/dL (1.6-2.6); Osmolality,Calculated 305 (280-300); Phosphorous 4.4 mg/dL (2.7-4.5); Potassium 5.2 mEq/L (3.5-5.1); Sodium 138 mEq/L (136-145); eGFR For African Americans > 60 (> 60); eGFR For Non-African Americans 55 (> 60)
[2019-04-08 06:26] LABS: Estimated Average Glucose 266 mg/dl
[2019-04-08] MEDS ORDERED: Ringers Solution, Lactated 1,000 ML IVC ONE ×3 (07:49→13:11)
[2019-04-08] MEDS ORDERED: Sodium Bicarbonate 50 MEQ/50 ML VIAL IVP ONE (07:51)
[2019-04-08 10:56] LABS: BUN/Creatinine Ratio 16 (6-26); Blood Urea Nitrogen 14 mg/dL (6-20); Calcium 8.7 mg/dL (8.6-10.3); Carbon Dioxide 14 mEq/L (23-29); Chloride 109 mEq/L (98-107); Glucose 125 mg/dL (70-105); Osmolality,Calculated 286 (280-300); Potassium 4.6 mEq/L (3.5-5.1); Sodium 137 mEq/L (136-145); eGFR For African Americans > 60 (> 60); eGFR For Non-African Americans > 60 (> 60)
[2019-04-08] MEDS: Ondansetron 4 MG/2 ML VIAL IVP PRN (10:58)
[2019-04-08] MEDS: Ringers Solution, Lactated 1,000 ML IVC ONE (11:09)
[2019-04-08] MEDS: Diclofenac Sodium (DR) 75 MG TABLET.DR PO SCH ×2 (11:09→21:48)
[2019-04-08] MEDS: Famotidine 20 MG TABLET PO SCH ×2 (11:10→20:32)
[2019-04-08] MEDS: Topiramate 25 MG TABLET PO SCH ×2 (11:10→20:32)
[2019-04-08] MEDS: amLODIPine 5 MG TABLET PO SCH (11:10)
[2019-04-08] MEDS: *HR* Heparin 5,000 UNIT/ML VIAL SQ SCH (18:19)
[2019-04-08 19:05] LABS: BUN/Creatinine Ratio 15 (6-26); Blood Urea Nitrogen 15 mg/dL (6-20); Calcium 8.5 mg/dL (8.6-10.3); Carbon Dioxide 21 mEq/L (23-29); Chloride 105 mEq/L (98-107); Glucose 281 mg/dL (70-105); Osmolality,Calculated 289 (280-300); Potassium 4.5 mEq/L (3.5-5.1); Sodium 134 mEq/L (136-145); eGFR For African Americans > 60 (> 60); eGFR For Non-African Americans 59 (> 60)
[2019-04-08] MEDS: *HR* OxyCODONE Immed Rel 5 MG TABLET PO PRN (20:33)
[2019-04-08] MEDS ORDERED: Insulin DETEMIR 100 UNIT/ML X5UNITS SQ SCH (21:00)
[2019-04-09] MEDS: *HR* Heparin 5,000 UNIT/ML VIAL SQ SCH ×2 (05:19→17:59)
[2019-04-09 05:36] LABS: Hematocrit 36.4 % (35.3-44.9); Mean Corpuscular Hemoglobin 29.5 pg (28.0-33.3); Mean Corpuscular Volume 89.4 fL (83.0-100.0); Mean Platelet Volume 9.4 fL (9.4-12.4); Platelet Count 279 K/mcL (140-400); Red Blood Count 4.07 M/mcL (3.82-4.97); Red Cell Distribution Width 13.6 % (11.5-14.5)
[2019-04-09 05:37] LABS: White Blood Count 8.9 K/mcL (4.3-11.1)
[2019-04-09 05:59] LABS: BUN/Creatinine Ratio 18 (6-26); Blood Urea Nitrogen 14 mg/dL (6-20); Carbon Dioxide 27 mEq/L (23-29); Chloride 105 mEq/L (98-107); Glucose 81 mg/dL (70-105); Osmolality,Calculated 290 (280-300); Sodium 140 mEq/L (136-145); eGFR For African Americans > 60 (> 60); eGFR For Non-African Americans > 60 (> 60)
[2019-04-09] MEDS: Insulin LISPRO 300 UNITS/3 ML VIAL SQ SCH ×5 (07:41→22:54)
[2019-04-09] MEDS: Diclofenac Sodium (DR) 75 MG TABLET.DR PO SCH ×2 (09:49→21:38)
[2019-04-09] MEDS: amLODIPine 5 MG TABLET PO SCH (09:49)
[2019-04-09] MEDS: Famotidine 20 MG TABLET PO SCH ×2 (09:49→21:01)
[2019-04-09] MEDS: Topiramate 25 MG TABLET PO SCH ×2 (09:49→21:01)
[2019-04-09] MEDS: Ondansetron ODT 4 MG TAB.RAPDIS SL PRN (13:53)
[2019-04-09] MEDS: *HR* OxyCODONE Immed Rel 5 MG TABLET PO PRN (13:53)
[2019-04-09] MEDS ORDERED: SODIUM CHLORIDE/NAHCO3/KCL/PEG 4,000 ML SOLN.RECON PO ONE (17:00)
[2019-04-09] MEDS: Ondansetron 4 MG/2 ML VIAL IVP PRN (19:24)
[2019-04-09] MEDS: Insulin DETEMIR 100 UNIT/ML X5UNITS SQ SCH (21:04)
[2019-04-10] MEDS ORDERED: Insulin Human Regular 10 UNIT in 0.9 % Sodium Chloride 10 ML IV ONE ×2 (00:03→04:54)
[2019-04-10] MEDS: *HR* Heparin 5,000 UNIT/ML VIAL SQ SCH ×2 (05:34→17:15)
[2019-04-10 07:02] LABS: Hematocrit 36.3 % (35.3-44.9); Hemoglobin 12.3 g/dL (11.5-15.4); Mean Corpuscular HGB Conc 33.9 g/dL (31.6-35.5); Mean Corpuscular Hemoglobin 29.6 pg (28.0-33.3); Mean Corpuscular Volume 87.5 fL (83.0-100.0); Mean Platelet Volume 9.5 fL (9.4-12.4); Platelet Count 247 K/mcL (140-400); Red Blood Count 4.15 M/mcL (3.82-4.97); Red Cell Distribution Width 13.6 % (11.5-14.5); White Blood Count 5.6 K/mcL (4.3-11.1)
[2019-04-10 07:21] LABS: BUN/Creatinine Ratio 20 (6-26); Blood Urea Nitrogen 16 mg/dL (6-20); Calcium 8.6 mg/dL (8.6-10.3); Carbon Dioxide 26 mEq/L (23-29); Chloride 102 mEq/L (98-107); Glucose 295 mg/dL (70-105); Osmolality,Calculated 302 (280-300); Potassium 3.4 mEq/L (3.5-5.1); Sodium 140 mEq/L (136-145); eGFR For African Americans > 60 (> 60); eGFR For Non-African Americans > 60 (> 60)
[2019-04-10] MEDS: Famotidine 20 MG TABLET PO SCH ×2 (08:29→20:04)
[2019-04-10] MEDS: amLODIPine 5 MG TABLET PO SCH (08:30)
[2019-04-10] MEDS: Topiramate 25 MG TABLET PO SCH ×2 (08:30→20:04)
[2019-04-10] MEDS: Diclofenac Sodium (DR) 75 MG TABLET.DR PO SCH ×2 (08:40→20:04)
[2019-04-10] MEDS: Insulin LISPRO 300 UNITS/3 ML VIAL SQ SCH ×4 (11:45→20:56)
[2019-04-10] MEDS: Ondansetron 4 MG/2 ML VIAL IVP PRN ×2 (11:51→20:05)
[2019-04-10] MEDS ORDERED: Insulin LISPRO 300 UNITS/3 ML VIAL SQ ONE (13:02)
[2019-04-10] MEDS: *HR* OxyCODONE Immed Rel 5 MG TABLET PO PRN (20:04)
[2019-04-10] MEDS: Insulin DETEMIR 100 UNIT/ML X5UNITS SQ SCH (20:57)
[2019-04-11] MEDS: *HR* Heparin 5,000 UNIT/ML VIAL SQ SCH (04:56)
[2019-04-11 05:18] LABS: BUN/Creatinine Ratio 14 (6-26); Blood Urea Nitrogen 10 mg/dL (6-20); Carbon Dioxide 27 mEq/L (23-29); Chloride 104 mEq/L (98-107); Glucose 94 mg/dL (70-105); Osmolality,Calculated 287 (280-300); Potassium 3.8 mEq/L (3.5-5.1); Sodium 139 mEq/L (136-145); eGFR For African Americans > 60 (> 60); eGFR For Non-African Americans > 60 (> 60)
[2019-04-11] MEDS ORDERED: D5% in 0.9% NACL 1,000 ML IVC SCH (06:45)
[2019-04-11] MEDS: Insulin LISPRO 300 UNITS/3 ML VIAL SQ SCH ×2 (08:11→12:20)
[2019-04-11] MEDS: Famotidine 20 MG TABLET PO SCH (08:27)
[2019-04-11] MEDS: Diclofenac Sodium (DR) 75 MG TABLET.DR PO SCH (08:27)
[2019-04-11] MEDS: amLODIPine 5 MG TABLET PO SCH (08:28)
[2019-04-11] MEDS: Topiramate 25 MG TABLET PO SCH (08:29)
[2019-04-11] MEDS ORDERED: *HR* FentaNYL PATCH 50 MCG PATCH TD SCH (08:30)
[2019-04-11] MEDS ORDERED: Propofol 500 MG/50 ML INFUS..BTL ONE (12:47)
[2019-04-11] MEDS ORDERED: Lidocaine -MPF 2% 2 ML VIAL ONE (12:48)
[2019-04-11 16:19] VITALS: BP 109/68
[2019-04-12 14:12] LABS: Immunoglobulin A (CELIAC) 137 mg/dL (68-408); Serine Protease-3 Antibody 13 AU/mL (0-19)
[2019-04-12 14:23] LABS: Tissue Transglutaminase IgA 1 U/mL (0-3)
[2019-04-13 13:47] LABS: Saccharomyces cerevisiae IgA 4.7 Units (0.0-24.9)
== END 2019-04-11 16:19 | disposition home or self-care (01) ==
LOC: EMEROOARM 12:19 → 3BNU 12:19 → SUATTDRO 16:27 → 3BNU 17:08
PROVIDERS: ADMIT Family Medicine; ATTEND Internal Medicine

== ENCOUNTER 2019-09-25 07:56 | Inpatient (IN) ==
[~2019-09-25 07:56] MED LIST: Vancomycin 1,000 MG, Sodium Chloride IRRigation 1,000 ML IR ONE
[2019-09-25] MEDS ORDERED: CeFAZolin Syr 2,000MG/20 ML 2,000 MG/20 ML SYRINGE IVPB ONE (08:31)
[2019-09-25] MEDS ORDERED: *HR* FentaNYL (PF) 100 MCG/2 ML VIAL ONE ×3 (08:57→12:34)
[2019-09-25] MEDS ORDERED: *HR* Midazolam HCl 2 MG/2 ML VIAL ONE (08:57)
[2019-09-25] MEDS ORDERED: *HR* Propofol 200 MG/20 ML VIAL IVP ONE (08:57)
[2019-09-25] MEDS ORDERED: Ondansetron 4 MG/2 ML VIAL IVP ONE (09:00)
[2019-09-25] MEDS ORDERED: *HR* HYDROmorphone PF 0.5 MG/0.5 ML SYRINGE IVP PRN (09:00)
[2019-09-25] MEDS ORDERED: *HR* Promethazine 25 MG/ML VIAL IVP PRN (09:00)
[2019-09-25] MEDS ORDERED: *HR* Heparin 5,000 UNIT/ML VIAL ONE (09:01)
[2019-09-25] MEDS ORDERED: *HR* Phenylephrine 10 MG/ML VIAL ONE (09:03)
[2019-09-25] MEDS ORDERED: Scopolamine Patch 1.5 MG PATCH.TD72 TD ONE (09:08)
[2019-09-25] MEDS: Ringers Solution, Lactated 1,000 ML IVC SCH ×2 (09:23→12:33)
[2019-09-25] MEDS ORDERED: Lidocaine HCL 4 ML Topical Solution (Laryng-O-Jet Kit Sterile Pak) TP ONE (09:31)
[2019-09-25] MEDS ORDERED: Heparin 1,000 UNITS/500 mL 500 ML ONE (09:59)
[2019-09-25] MEDS ORDERED: Vancomycin 1,000 MG VIAL ONE (09:59)
[2019-09-25] MEDS ORDERED: Heparin 1,000 UNITS/500 mL 0 ML ONE ×2 (10:13→11:12)
[2019-09-25] MEDS ORDERED: *HR* Rocuronium Bromide 50 MG/5 ML VIAL ONE (11:12)
[2019-09-25] MEDS ORDERED: *HR* PHENYLEPHRINE 1,000 MCG/10 ML SYRINGE IVP ONE (11:45)
[2019-09-25] MEDS ORDERED: EPHEDrine 50 MG/ML VIAL ONE (11:53)
[2019-09-25] MEDS ORDERED: *HR* Labetalol 20 MG/4 ML SYRINGE IVP ONE (13:55)
[2019-09-25] MEDS ORDERED: Naloxone 0.4 MG/ML INJ IVP PRN (15:09)
[2019-09-25] MEDS ORDERED: *HR* HYDROcodone/Acet 5/325 mg TABLET PO PRN ×2 (15:09)
[2019-09-25] MEDS ORDERED: *HR* Dextrose 50 % in Water (Vial) 50 ML VIAL IVP PRN (15:09)
[2019-09-25] MEDS ORDERED: D5% in Water 1,000 ML IVC PRN (15:09)
[2019-09-25] MEDS ORDERED: Dextrose Gel 15 GM/37.5 ML TUBE PO PRN ×2 (15:09)
[2019-09-25] MEDS ORDERED: Ondansetron 4 MG/2 ML VIAL IVP PRN (15:09)
[2019-09-25] MEDS ORDERED: Acetaminophen 325 MG TABLET PO PRN ×2 (15:09)
[2019-09-25] MEDS ORDERED: *HR* Labetalol 20 MG/4 ML SYRINGE IVP PRN (15:09)
[2019-09-25] MEDS ORDERED: 0.9 % Sodium Chloride 1,000 ML IVC SCH (15:09)
[2019-09-25] MEDS: CeFAZolin 2 GM/120 ML BAG IVPB SCH (15:44)
[2019-09-25] MEDS: *HR* Metoprolol 5 MG/5 ML VIAL IVP SCH (15:48)
[2019-09-25] MEDS: Insulin LISPRO 300 UNITS/3 ML VIAL SQ SCH (17:14)
[2019-09-25] MEDS: *HR* Heparin 5,000 UNIT/ML VIAL SQ SCH (17:17)
[2019-09-25] MEDS ORDERED: estradioL 1 MG TABLET PO SCH (21:00)
[2019-09-25] MEDS ORDERED: Insulin LISPRO 300 UNITS/3 ML VIAL SQ SCH (21:00)
[2019-09-25] MEDS: Diclofenac Sodium (DR) 75 MG TABLET.DR PO SCH (21:41)
[2019-09-26] MEDS: *HR* Metoprolol 5 MG/5 ML VIAL IVP SCH ×2 (00:57→05:14)
[2019-09-26] MEDS: CeFAZolin 2 GM/120 ML BAG IVPB SCH (00:58)
[2019-09-26 04:09] LABS: Basophils % 0.2 %; Eosinophils % 0.1 %; Hematocrit 34.1 % (35.3-44.9); Hemoglobin 11.3 g/dL (11.5-15.4); Immature Granulocytes % 0.4 % (0-4); Lymphocytes # 1.7 K/mcL (0.6-4.6); Lymphocytes % 17.6 %; Mean Corpuscular HGB Conc 33.1 g/dL (31.6-35.5); Mean Corpuscular Hemoglobin 29.5 pg (28.0-33.3); Mean Platelet Volume 9.2 fL (9.4-12.4); Monocytes # 0.4 K/mcL (0.0-1.3); Monocytes % 4.5 %; Neutrophils # 7.6 K/mcL (1.6-8.9); Platelet Count 274 K/mcL (140-400); Red Blood Count 3.83 M/mcL (3.82-4.97); Red Cell Distribution Width 14.3 % (11.5-14.5); Segmented Neutrophils % 77.2 %; White Blood Count 9.8 K/mcL (4.3-11.1)
[2019-09-26 04:28] LABS: BUN/Creatinine Ratio 15 (6-26); Blood Urea Nitrogen 10 mg/dL (6-20); Calcium 7.8 mg/dL (8.6-10.3); Carbon Dioxide 23 mEq/L (23-29); Chloride 106 mEq/L (98-107); Glucose 304 mg/dL (70-105); Osmolality,Calculated 292 (280-300); Potassium 4.3 mEq/L (3.5-5.1); Sodium 136 mEq/L (136-145); eGFR For African Americans > 60 (> 60); eGFR For Non-African Americans > 60 (> 60)
[2019-09-26] MEDS: *HR* Heparin 5,000 UNIT/ML VIAL SQ SCH (05:13)
[2019-09-26] MEDS ORDERED: *HR* Heparin 5,000 UNIT/ML VIAL SQ SCH (06:00)
[2019-09-26 06:59] VITALS: BP 128/57
[2019-09-26] MEDS: Diclofenac Sodium (DR) 75 MG TABLET.DR PO SCH (08:22)
[2019-09-26] MEDS: Insulin LISPRO 300 UNITS/3 ML VIAL SQ SCH (08:24)
[2019-09-26] MEDS ORDERED: amLODIPine 5 MG TABLET PO SCH (09:00)
[2019-09-26] MEDS ORDERED: Loratadine 10 MG TABLET PO SCH (09:00)
== END 2019-09-26 09:36 | disposition home or self-care (01) | DRG 253 ==
LOC: SAMDAY 07:56 → 2NNU 10:13
PROVIDERS: ADMIT Surgery; ATTEND Surgery

== ENCOUNTER 2019-11-26 20:37 | Inpatient (IN) ==
[2019-11-26] MEDS ORDERED: 0.9 % Sodium Chloride 1,000 ML IVC ONE ×2 (20:48→22:51)
[2019-11-26] MEDS ORDERED: *HR* FentaNYL (PF) 100 MCG/2 ML VIAL IVP ONE (20:49)
[2019-11-26] MEDS ORDERED: Ondansetron 4 MG/2 ML VIAL IVP ONE (20:49)
[2019-11-26] MEDS ORDERED: Isovue-370 500 ML BOTTLE IVP ONE (20:53)
[2019-11-26 21:18] LABS: Bacteria,Urine Few per hpf (None-Few); Bilirubin,Urine Negative (Negative); Blood,Urine Negative (Negative); Clarity,Urine Clear (Clear); Color,Urine Light-Yellow (Yellow); Glucose,Urine (UA) >=1000 mg/dL (Normal); Ketones,Urine Negative (Negative); Leukocyte Esterase,Urine Negative (Negative); Nitrite,Urine Negative (Negative); Protein,Urine Negative (Neg-Trace); RBC,Urine 0-3 per hpf (0-3); Specific Gravity,Urine 1.022 (1.010-1.025); Squamous Epithelial Cell,Urine Few per hpf (None-Few); Urobilinogen,Urine Normal (Normal); WBC,Urine 0-3 per hpf (0-3)
[2019-11-26 22:13] LABS: Alanine Aminotransferase 7 Units/L (7-52); Albumin 3.4 g/dL (3.5-5.7); Albumin/Globulin Ratio 1.3 (1.1-2.2); Alkaline Phosphatase 68 Units/L (34-104); Amylase 26 Units/L (29-103); Aspartate Amino Transferase 15 Units/L (13-39); BUN/Creatinine Ratio 10 (6-26); Bilirubin,Direct 0.1 mg/dL (0.0-0.2); Bilirubin,Indirect 0.4 mg/dL (0.0-1.0); Bilirubin,Total 0.5 mg/dL (0.3-1.0); Blood Urea Nitrogen 7 mg/dL (6-20); Calcium 8.6 mg/dL (8.6-10.3); Carbon Dioxide 24 mEq/L (23-29); Chloride 105 mEq/L (98-107); Globulin 2.6 g/dL (2.4-3.5); Glucose 141 mg/dL (70-105); Lipase 3 Units/L (11-82); Magnesium 1.6 mg/dL (1.6-2.6); Osmolality,Calculated 284 (280-300); Potassium 3.8 mEq/L (3.5-5.1); Sodium 137 mEq/L (136-145); Troponin I 0.03 ng/mL (< 0.04); eGFR For African Americans > 60 (> 60); eGFR For Non-African Americans > 60 (> 60)
[2019-11-26 22:23] LABS: Basophils % 0.2 %; Eosinophils # 0.3 K/mcL (0.0-0.6); Eosinophils % 2.9 %; Hematocrit 39.8 % (35.3-44.9); Hemoglobin 13.2 g/dL (11.5-15.4); Immature Granulocytes % 0.1 % (0-4); Lymphocytes # 2.6 K/mcL (0.6-4.6); Lymphocytes % 30.3 %; Mean Corpuscular HGB Conc 33.2 g/dL (31.6-35.5); Mean Corpuscular Hemoglobin 28.8 pg (28.0-33.3); Mean Corpuscular Volume 86.9 fL (83.0-100.0); Mean Platelet Volume 9.3 fL (9.4-12.4); Monocytes # 0.4 K/mcL (0.0-1.3); Neutrophils # 5.3 K/mcL (1.6-8.9); Platelet Count 292 K/mcL (140-400); Red Blood Count 4.58 M/mcL (3.82-4.97); Red Cell Distribution Width 13.8 % (11.5-14.5); Segmented Neutrophils % 61.5 %; White Blood Count 8.7 K/mcL (4.3-11.1)
[2019-11-26 22:27] LABS: Prothrombin Time 10.8 Seconds (9.4-12.1)
[2019-11-26 22:31] LABS: Activated Partial Thrombo Time 33.3 Seconds (26.0-36.0)
[2019-11-26] MEDS ORDERED: MetroNIDAZOLE 500 MG/100 ML 500 MG/100 ML BAG IVPB ONE (23:19)
[2019-11-26] MEDS ORDERED: *HR* HYDROmorphone (PF) 1 MG/ML SYRINGE IVP ONE (23:57)
[2019-11-27] MEDS ORDERED: *HR* Dextrose 50 % in Water (Vial) 50 ML VIAL IVP PRN (02:14)
[2019-11-27] MEDS ORDERED: D5% in Water 1,000 ML IVC PRN (02:14)
[2019-11-27] MEDS ORDERED: Dextrose Gel 15 GM/37.5 ML TUBE PO PRN ×2 (02:14)
[2019-11-27] MEDS ORDERED: *HR* HYDROcodone/Acet 5/325 mg TABLET PO PRN ×2 (02:32→15:23)
[2019-11-27] MEDS ORDERED: Ondansetron ODT 4 MG TAB.RAPDIS PO PRN (02:32)
[2019-11-27] MEDS ORDERED: Naloxone 0.4 MG/ML INJ IVP PRN (02:36)
[2019-11-27] MEDS ORDERED: Ondansetron 4 MG/2 ML VIAL IVP PRN (02:42)
[2019-11-27] MEDS ORDERED: Acetaminophen 325 MG TABLET PO PRN (02:42)
[2019-11-27] MEDS ORDERED: *HR* HYDROmorphone (PF) 1 MG/ML SYRINGE IVP PRN ×2 (02:51→15:23)
[2019-11-27] MEDS: 0.9 % Sodium Chloride 1,000 ML IVC SCH ×2 (03:21→16:50)
[2019-11-27 04:50] LABS: Basophils % 0.4 %; Eosinophils # 0.2 K/mcL (0.0-0.6); Eosinophils % 2.1 %; Hemoglobin 12.8 g/dL (11.5-15.4); Immature Granulocytes % 0.4 % (0-4); Lymphocytes # 2.1 K/mcL (0.6-4.6); Lymphocytes % 24.6 %; Mean Corpuscular HGB Conc 32.8 g/dL (31.6-35.5); Mean Corpuscular Hemoglobin 29.3 pg (28.0-33.3); Mean Corpuscular Volume 89.2 fL (83.0-100.0); Mean Platelet Volume 9.4 fL (9.4-12.4); Monocytes # 0.5 K/mcL (0.0-1.3); Monocytes % 5.5 %; Neutrophils # 5.7 K/mcL (1.6-8.9); Platelet Count 264 K/mcL (140-400); Red Blood Count 4.37 M/mcL (3.82-4.97); Red Cell Distribution Width 13.8 % (11.5-14.5); White Blood Count 8.5 K/mcL (4.3-11.1)
[2019-11-27 05:04] LABS: BUN/Creatinine Ratio 10 (6-26); Blood Urea Nitrogen 6 mg/dL (6-20); Calcium 7.7 mg/dL (8.6-10.3); Carbon Dioxide 22 mEq/L (23-29); Chloride 109 mEq/L (98-107); Glucose 144 mg/dL (70-105); Magnesium 1.4 mg/dL (1.6-2.6); Osmolality,Calculated 290 (280-300); Phosphorous 4.1 mg/dL (2.7-4.5); Potassium 3.8 mEq/L (3.5-5.1); Sodium 140 mEq/L (136-145); eGFR For African Americans > 60 (> 60); eGFR For Non-African Americans > 60 (> 60)
[2019-11-27] MEDS: *HR* Heparin 5,000 UNIT/ML VIAL SQ SCH ×3 (05:40→22:34)
[2019-11-27] MEDS: Insulin LISPRO 300 UNITS/3 ML VIAL SQ SCH ×3 (06:45→16:45)
[2019-11-27] MEDS ORDERED: Cyanocobalamin (B-12) 1,000 MCG/ML VIAL IM SCH (09:00)
[2019-11-27] MEDS: amLODIPine 5 MG TABLET PO SCH (09:24)
[2019-11-27] MEDS: Loratadine 10 MG TABLET PO SCH (09:24)
[2019-11-27] MEDS: MetroNIDAZOLE 500 MG/100 ML 500 MG/100 ML BAG IVPB SCH ×3 (09:26→23:51)
[2019-11-27] MEDS: Diclofenac Sodium (DR) 75 MG TABLET.DR PO SCH ×2 (09:32→22:34)
[2019-11-27] MEDS ORDERED: estradioL 1 MG TABLET PO SCH (21:00)
[2019-11-27] MEDS ORDERED: Insulin LISPRO 300 UNITS/3 ML VIAL SQ SCH (21:00)
[2019-11-27] MEDS ORDERED: Insulin DETEMIR 100 UNIT/ML X5UNITS SQ SCH (21:00)
[2019-11-28 06:44] LABS: Basophils % 0.3 %; Eosinophils # 0.4 K/mcL (0.0-0.6); Eosinophils % 6.6 %; Hematocrit 36.1 % (35.3-44.9); Hemoglobin 11.9 g/dL (11.5-15.4); Immature Granulocytes % 0.3 % (0-4); Lymphocytes # 2.3 K/mcL (0.6-4.6); Lymphocytes % 39.5 %; Mean Corpuscular Hemoglobin 30.2 pg (28.0-33.3); Mean Corpuscular Volume 91.6 fL (83.0-100.0); Mean Platelet Volume 9.6 fL (9.4-12.4); Monocytes # 0.3 K/mcL (0.0-1.3); Monocytes % 5.1 %; Neutrophils # 2.8 K/mcL (1.6-8.9); Platelet Count 231 K/mcL (140-400); Red Blood Count 3.94 M/mcL (3.82-4.97); Red Cell Distribution Width 14.2 % (11.5-14.5); Segmented Neutrophils % 48.2 %; White Blood Count 5.9 K/mcL (4.3-11.1)
[2019-11-28] MEDS: *HR* Heparin 5,000 UNIT/ML VIAL SQ SCH ×2 (06:51→14:28)
[2019-11-28 07:01] LABS: Phosphorous 2.9 mg/dL (2.7-4.5)
[2019-11-28 07:04] LABS: BUN/Creatinine Ratio 9 (6-26); Blood Urea Nitrogen 5 mg/dL (6-20); Calcium 7.9 mg/dL (8.6-10.3); Carbon Dioxide 25 mEq/L (23-29); Chloride 111 mEq/L (98-107); Glucose 85 mg/dL (70-105); Osmolality,Calculated 287 (280-300); Potassium 3.5 mEq/L (3.5-5.1); Sodium 140 mEq/L (136-145); eGFR For African Americans > 60 (> 60); eGFR For Non-African Americans > 60 (> 60)
[2019-11-28] MEDS: Insulin LISPRO 300 UNITS/3 ML VIAL SQ SCH ×3 (08:42→17:45)
[2019-11-28] MEDS: amLODIPine 5 MG TABLET PO SCH (08:44)
[2019-11-28] MEDS: Loratadine 10 MG TABLET PO SCH (08:44)
[2019-11-28] MEDS: Diclofenac Sodium (DR) 75 MG TABLET.DR PO SCH (08:45)
[2019-11-28] MEDS: MetroNIDAZOLE 500 MG/100 ML 500 MG/100 ML BAG IVPB SCH ×2 (08:46→17:45)
[2019-11-28] MEDS ORDERED: traZODone 50 MG TABLET PO PRN (14:11)
[2019-11-28 18:46] VITALS: BP 159/84
== END 2019-11-28 19:31 | disposition left against medical advice (07) | DRG 386 ==
LOC: EMEROOARM 20:37 → 3ANU 20:37 → SUATTDRO 11-27 12:38
PROVIDERS: ADMIT Family Medicine; ATTEND Student in an Organized Health Care Education/Training Program

== ENCOUNTER 2020-07-28 18:51 | Observation (INO) ==
[2020-07-28] MEDS ORDERED: Aspirin 81 MG TAB.CHEW PO ONE (19:28)
[2020-07-28] MEDS ORDERED: Isovue-370 500 ML BOTTLE IVP ONE (19:55)
[2020-07-28 20:15] LABS: Basophils % 0.4 %; Eosinophils # 0.2 K/mcL (0.0-0.6); Eosinophils % 2.1 %; Hematocrit 42.2 % (35.3-44.9); Immature Granulocytes % 0.2 % (0-4); Lymphocytes # 2.5 K/mcL (0.6-4.6); Lymphocytes % 29.4 %; Mean Corpuscular HGB Conc 33.2 g/dL (31.6-35.5); Mean Corpuscular Hemoglobin 28.7 pg (28.0-33.3); Mean Corpuscular Volume 86.5 fL (83.0-100.0); Mean Platelet Volume 9.3 fL (9.4-12.4); Monocytes # 0.5 K/mcL (0.0-1.3); Monocytes % 5.9 %; Neutrophils # 5.2 K/mcL (1.6-8.9); Platelet Count 355 K/mcL (140-400); Red Blood Count 4.88 M/mcL (3.82-4.97); Red Cell Distribution Width 15.1 % (11.5-14.5); White Blood Count 8.4 K/mcL (4.3-11.1)
[2020-07-28 20:17] LABS: INR 0.9; Prothrombin Time 10.5 Seconds (9.4-12.1)
[2020-07-28 20:20] LABS: Activated Partial Thrombo Time 29.1 Seconds (26.0-36.0)
[2020-07-28] MEDS ORDERED: *HR* FentaNYL (PF) 100 MCG/2 ML VIAL IVP ONE ×2 (20:23→21:43)
[2020-07-28 20:31] LABS: Albumin 4.2 g/dL (3.5-5.7); Albumin/Globulin Ratio 1.3 (1.1-2.2); Bilirubin,Direct 0.1 mg/dL (0.0-0.2); Bilirubin,Indirect 0.2 mg/dL (0.0-1.0); Bilirubin,Total 0.3 mg/dL (0.3-1.0); Globulin 3.2 g/dL (2.4-3.5); Total Protein 7.4 g/dL (6.4-8.9)
[2020-07-28 20:32] LABS: BUN/Creatinine Ratio 13 (6-26); Blood Urea Nitrogen 10 mg/dL (6-20); Calcium 9.3 mg/dL (8.6-10.3); Carbon Dioxide 22 mEq/L (23-29); Chloride 102 mEq/L (98-107); Glucose 181 mg/dL (70-105); Osmolality,Calculated 286 (280-300); Potassium 4.3 mEq/L (3.5-5.1); Sodium 136 mEq/L (136-145); Troponin I < 0.03 ng/mL (< 0.04); eGFR For African Americans > 60 (> 60); eGFR For Non-African Americans > 60 (> 60)
[2020-07-28 20:58] LABS: Bilirubin,Urine Negative (Negative); Blood,Urine Negative (Negative); Clarity,Urine Clear (Clear); Color,Urine Colorless (Yellow); Glucose,Urine (UA) Normal (Normal); Ketones,Urine Negative (Negative); Leukocyte Esterase,Urine Negative (Negative); Nitrite,Urine Negative (Negative); PH,Urine 7.5 pH Units (5.0-8.0); Protein,Urine Negative (Neg-Trace); Specific Gravity,Urine 1.005 (1.010-1.025); Urobilinogen,Urine Normal (Normal)
[2020-07-28] MEDS ORDERED: Naloxone 0.4 MG/ML INJ IVP PRN (22:37)
[2020-07-28] MEDS ORDERED: Ondansetron 4 MG/2 ML VIAL IVP PRN ×2 (22:37→23:39)
[2020-07-28] MEDS ORDERED: Dextrose Gel 15 GM/37.5 ML TUBE PO PRN ×2 (23:05)
[2020-07-28] MEDS ORDERED: D5% in Water 1,000 ML IVC PRN (23:05)
[2020-07-28] MEDS ORDERED: *HR* Dextrose 50 % in Water (Vial) 50 ML VIAL IVP PRN (23:05)
[2020-07-28] MEDS ORDERED: *HR* Metoprolol 5 MG/5 ML VIAL IVP PRN (23:22)
[2020-07-28] MEDS ORDERED: Acetaminophen 325 MG TABLET PO PRN (23:37)
[2020-07-28] MEDS ORDERED: Perflutren Lipid Microsphere 1.3 ML in 0.9 % Sodium Chloride 8.7 ML IVP PRN (23:39)
[2020-07-29] MEDS ORDERED: Insulin LISPRO 300 UNITS/3 ML VIAL SUBQ SCH
[2020-07-29] MEDS: Insulin LISPRO 300 UNITS/3 ML VIAL SUBQ SCH ×4 (00:33→20:07)
[2020-07-29] MEDS ORDERED: Nitroglycerin 0.4 MG TAB.SUBL SL PRN (04:52)
[2020-07-29] MEDS: Famotidine 20 MG/2 ML VIAL IVP SCH ×2 (05:35→20:06)
[2020-07-29] MEDS: *HR* Enoxaparin 40 MG/0.4 ML SYRINGE SQ SCH (05:35)
[2020-07-29] MEDS ORDERED: Regadenoson 0.4 MG/5 ML SYRINGE IVP ONE (06:10)
[2020-07-29 06:17] LABS: Basophils % 0.4 %; Eosinophils # 0.3 K/mcL (0.0-0.6); Eosinophils % 3.8 %; Hematocrit 40.5 % (35.3-44.9); Hemoglobin 12.9 g/dL (11.5-15.4); Immature Granulocytes % 0.3 % (0-4); Lymphocytes # 2.2 K/mcL (0.6-4.6); Lymphocytes % 27.7 %; Mean Corpuscular HGB Conc 31.9 g/dL (31.6-35.5); Mean Corpuscular Hemoglobin 27.7 pg (28.0-33.3); Mean Corpuscular Volume 87.1 fL (83.0-100.0); Mean Platelet Volume 9.5 fL (9.4-12.4); Monocytes # 0.5 K/mcL (0.0-1.3); Monocytes % 6.8 %; Neutrophils # 4.8 K/mcL (1.6-8.9); Platelet Count 300 K/mcL (140-400); Red Blood Count 4.65 M/mcL (3.82-4.97); Red Cell Distribution Width 15.3 % (11.5-14.5); White Blood Count 7.9 K/mcL (4.3-11.1)
[2020-07-29 06:27] LABS: INR 0.9; Prothrombin Time 10.9 Seconds (9.4-12.1)
[2020-07-29 06:36] LABS: BUN/Creatinine Ratio 12 (6-26); Blood Urea Nitrogen 8 mg/dL (6-20); Calcium 8.7 mg/dL (8.6-10.3); Carbon Dioxide 24 mEq/L (23-29); Chloride 105 mEq/L (98-107); Cholesterol 127 mg/dL (< 200); Glucose 238 mg/dL (70-105); HDL Cholesterol 42 mg/dL (40-59); LDL Cholesterol,Calculated 40 mg/dL (< 100); Osmolality,Calculated 288 (280-300); Potassium 4.7 mEq/L (3.5-5.1); Sodium 136 mEq/L (136-145); Triglycerides 226 mg/dL (< 150); eGFR For African Americans > 60 (> 60); eGFR For Non-African Americans > 60 (> 60)
[2020-07-29 07:18] LABS: Estimated Average Glucose 232 mg/dl; Hemoglobin A1C 9.7 %
[2020-07-29] MEDS: Aspirin Enteric Coated 81 MG Tablet PO SCH (10:33)
[2020-07-29] MEDS ORDERED: *HR* HYDROcodone/Acet 7.5/325 mg TABLET PO PRN (14:55)
[2020-07-29] MEDS ORDERED: methylPREDNISolone 125 MG/2 ML VIAL IVP ONE (14:56)
[2020-07-29] MEDS ORDERED: estradioL 1 MG TABLET PO SCH (21:00)
[2020-07-29] MEDS ORDERED: traZODone 50 MG TABLET PO PRN (21:00)
[2020-07-30] MEDS: Insulin LISPRO 300 UNITS/3 ML VIAL SUBQ SCH (00:27)
[2020-07-30 05:48] LABS: Basophils % 0.2 %; Hematocrit 41.5 % (35.3-44.9); Hemoglobin 13.5 g/dL (11.5-15.4); Immature Granulocytes % 0.7 % (0-4); Lymphocytes # 1.4 K/mcL (0.6-4.6); Lymphocytes % 13.6 %; Mean Corpuscular HGB Conc 32.5 g/dL (31.6-35.5); Mean Corpuscular Hemoglobin 28.2 pg (28.0-33.3); Mean Corpuscular Volume 86.6 fL (83.0-100.0); Mean Platelet Volume 9.5 fL (9.4-12.4); Monocytes # 0.3 K/mcL (0.0-1.3); Monocytes % 3.1 %; Neutrophils # 8.2 K/mcL (1.6-8.9); Platelet Count 301 K/mcL (140-400); Red Blood Count 4.79 M/mcL (3.82-4.97); Red Cell Distribution Width 14.6 % (11.5-14.5); Segmented Neutrophils % 82.4 %
[2020-07-30] MEDS: Famotidine 20 MG/2 ML VIAL IVP SCH (05:50)
[2020-07-30] MEDS: *HR* Enoxaparin 40 MG/0.4 ML SYRINGE SQ SCH (05:50)
[2020-07-30 06:11] LABS: BUN/Creatinine Ratio 17 (6-26); Blood Urea Nitrogen 13 mg/dL (6-20); Calcium 8.9 mg/dL (8.6-10.3); Carbon Dioxide 23 mEq/L (23-29); Chloride 100 mEq/L (98-107); Glucose 370 mg/dL (70-105); Osmolality,Calculated 291 (280-300); Potassium 4.9 mEq/L (3.5-5.1); Sodium 133 mEq/L (136-145); eGFR For African Americans > 60 (> 60); eGFR For Non-African Americans > 60 (> 60)
[2020-07-30 07:20] VITALS: BP 127/57
[2020-07-30] MEDS ORDERED: Insulin LISPRO 300 UNITS/3 ML VIAL SUBQ SCH ×2 (07:30→21:00)
[2020-07-30] MEDS: Aspirin Enteric Coated 81 MG Tablet PO SCH (08:28)
[2020-07-30] MEDS ORDERED: Loratadine 10 MG TABLET PO SCH (09:00)
[2020-07-30] MEDS ORDERED: amLODIPine 5 MG TABLET PO SCH (09:00)
== END 2020-07-30 09:28 | disposition home or self-care (01) ==
LOC: EMEROOARM 18:51 → 3ANU 18:51 → SUATTDRO 22:19 → 3ANU 23:08
PROVIDERS: ADMIT Student in an Organized Health Care Education/Training Program; ATTEND Family Medicine

== ENCOUNTER 2021-03-26 17:55 | Observation (INO) ==
[2021-03-26] MEDS ORDERED: 0.9 % Sodium Chloride 1,000 ML IVC ONE (18:16)
[2021-03-26] MEDS ORDERED: *HR* HYDROmorphone (PF) 1 MG/ML SYRINGE IVP ONE (18:27)
[2021-03-26] MEDS ORDERED: Ondansetron 4 MG/2 ML VIAL IVP ONE (18:27)
[2021-03-26 19:00] LABS: Bacteria,Urine Few per hpf (None-Few); Bilirubin,Urine Negative (Negative); Blood,Urine Negative (Negative); Clarity,Urine Clear (Clear); Color,Urine Light-Yellow (Yellow); Glucose,Urine (UA) >=1000 mg/dL (Normal); Ketones,Urine Negative (Negative); Leukocyte Esterase,Urine Negative (Negative); Mucus,Urine Few per lpf (None-Few); Nitrite,Urine Negative (Negative); PH,Urine 5.5 pH Units (5.0-8.0); Protein,Urine Negative (Neg-Trace); RBC,Urine 0-3 per hpf (0-3); Specific Gravity,Urine 1.029 (1.010-1.025); Squamous Epithelial Cell,Urine Few per hpf (None-Few); Urobilinogen,Urine Normal (Normal); WBC,Urine 0-3 per hpf (0-3)
[2021-03-26 19:16] LABS: Basophils % 0.1 %; Hemoglobin 12.9 g/dL (11.5-15.4); Immature Granulocytes % 0.4 % (0-4); Lymphocytes % 5.7 %; Mean Corpuscular HGB Conc 33.1 g/dL (31.6-35.5); Mean Corpuscular Hemoglobin 28.6 pg (28.0-33.3); Mean Corpuscular Volume 86.5 fL (83.0-100.0); Monocytes # 0.6 K/mcL (0.0-1.3); Monocytes % 3.4 %; Neutrophils # 15.4 K/mcL (1.6-8.9); Platelet Count 337 K/mcL (140-400); Red Blood Count 4.51 M/mcL (3.82-4.97); Red Cell Distribution Width 13.9 % (11.5-14.5); Segmented Neutrophils % 90.4 %
[2021-03-26 19:21] LABS: VBG HCO3 22 mEq/L (21-27); VBG PCO2 37 mmHg (41-51); VBG PH 7.39 pH Units (7.32-7.42); VBG PO2 99 mmHg (25-50)
[2021-03-26 19:39] LABS: Alanine Aminotransferase 25 Units/L (7-52); Albumin 3.5 g/dL (3.5-5.7); Albumin/Globulin Ratio 1.2 (1.1-2.2); Alkaline Phosphatase 111 Units/L (34-104); Aspartate Amino Transferase 16 Units/L (13-39); BUN/Creatinine Ratio 32 (6-26); Bilirubin,Total 0.5 mg/dL (0.3-1.0); Blood Urea Nitrogen 30 mg/dL (6-20); Calcium 8.3 mg/dL (8.6-10.3); Carbon Dioxide 21 mEq/L (23-29); Chloride 97 mEq/L (98-107); Globulin 2.9 g/dL (2.4-3.5); Glucose 493 mg/dL (70-105); Osmolality,Calculated 294 (280-300); Potassium 4.3 mEq/L (3.5-5.1); Sodium 128 mEq/L (136-145); Total Protein 6.4 g/dL (6.4-8.9); eGFR For African Americans > 60 (> 60); eGFR For Non-African Americans > 60 (> 60)
[2021-03-26] MEDS ORDERED: Acetaminophen 325 MG TABLET PO PRN (21:23)
[2021-03-26] MEDS ORDERED: Ondansetron 4 MG/2 ML VIAL IVP PRN (21:23)
[2021-03-26] MEDS ORDERED: Naloxone 0.4 MG/ML INJ IVP PRN (21:23)
[2021-03-26] MEDS ORDERED: Dextrose Gel 15 GM/37.5 ML TUBE PO PRN ×2 (21:29)
[2021-03-26] MEDS ORDERED: D5% in Water 1,000 ML IVC PRN (21:29)
[2021-03-26] MEDS ORDERED: *HR* Dextrose 50 % in Water (Syg) 50 ML SYRINGE IVP PRN (21:29)
[2021-03-26] MEDS ORDERED: 0.9 % Sodium Chloride 1,000 ML IVC SCH (21:30)
[2021-03-26] MEDS: 0.9 % Sodium Chloride 1,000 ML IVC SCH ×2 (21:39→23:17)
[2021-03-26] MEDS ORDERED: Insulin LISPRO 300 UNITS/3 ML VIAL SUBQ SCH (21:45)
[2021-03-26] MEDS ORDERED: Insulin DETEMIR 100 UNIT/ML X5UNITS SUBQ SCH (21:45)
[2021-03-26] MEDS: Insulin LISPRO 300 UNITS/3 ML VIAL SUBQ SCH ×3 (22:32→22:40)
[2021-03-26] MEDS: *HR* Heparin 5,000 UNIT/ML VIAL SQ SCH (22:33)
[2021-03-26] MEDS ORDERED: traZODone 50 MG TABLET PO SCH (22:45)
[2021-03-27 02:58] VITALS: TEMP 97.8
[2021-03-27 03:16] LABS: Basophils % 0.1 %; Hematocrit 34.6 % (35.3-44.9); Hemoglobin 11.5 g/dL (11.5-15.4); Immature Granulocytes % 0.3 % (0-4); Lymphocytes # 1.8 K/mcL (0.6-4.6); Lymphocytes % 12.3 %; Mean Corpuscular HGB Conc 33.2 g/dL (31.6-35.5); Mean Corpuscular Hemoglobin 29.3 pg (28.0-33.3); Monocytes % 6.8 %; Neutrophils # 11.5 K/mcL (1.6-8.9); Platelet Count 314 K/mcL (140-400); Red Blood Count 3.93 M/mcL (3.82-4.97); Red Cell Distribution Width 13.9 % (11.5-14.5); Segmented Neutrophils % 80.5 %; White Blood Count 14.3 K/mcL (4.3-11.1)
[2021-03-27 05:01] LABS: Alanine Aminotransferase 20 Units/L (7-52); Albumin/Globulin Ratio 1.3 (1.1-2.2); Alkaline Phosphatase 83 Units/L (34-104); Aspartate Amino Transferase 13 Units/L (13-39); BUN/Creatinine Ratio 32 (6-26); Bilirubin,Total 0.4 mg/dL (0.3-1.0); Blood Urea Nitrogen 19 mg/dL (6-20); Calcium 7.1 mg/dL (8.6-10.3); Carbon Dioxide 22 mEq/L (23-29); Chloride 108 mEq/L (98-107); Globulin 2.3 g/dL (2.4-3.5); Glucose 242 mg/dL (70-105); Magnesium 1.9 mg/dL (1.6-2.6); Osmolality,Calculated 294 (280-300); Potassium 4.2 mEq/L (3.5-5.1); Sodium 137 mEq/L (136-145); Total Protein 5.3 g/dL (6.4-8.9); eGFR For African Americans > 60 (> 60); eGFR For Non-African Americans > 60 (> 60)
[2021-03-27] MEDS: *HR* Heparin 5,000 UNIT/ML VIAL SQ SCH (05:08)
[2021-03-27 06:55] VITALS: BP 110/57; PULSE 69; O2SAT 95
[2021-03-27] MEDS: Insulin LISPRO 300 UNITS/3 ML VIAL SUBQ SCH (08:05)
[2021-03-27] MEDS ORDERED: Diclofenac Sodium (DR) 75 MG TABLET.DR PO SCH (09:00)
[2021-03-27] MEDS ORDERED: amLODIPine 5 MG TABLET PO SCH (09:00)
[2021-03-27 09:39] LABS: Estimated Average Glucose 266 mg/dl; Hemoglobin A1C 10.9 %
[2021-03-27] MEDS ORDERED: Mirtazapine 15 MG TABLET PO SCH (21:00)
[2021-03-27] MEDS ORDERED: estradioL 0.5 MG TABLET PO SCH (21:00)
[2021-03-27] MEDS ORDERED: NON-FORMULARY MEDICATION 1 EACH EACH (Ropinirole Hcl 5 MG Tablet) PO SCH (21:00)
[2021-03-27] MEDS ORDERED: rOPINIRole 3 MG, rOPINIRole 2 MG PO SCH (21:00)
== END 2021-03-27 12:04 | disposition home or self-care (01) ==
LOC: EMEROOARM 17:55 → 3BNU 17:55 → SUATTDRO 21:19 → 3BNU 22:20
PROVIDERS: ADMIT Internal Medicine; ATTEND Registered Nurse